=== PATIENT | male | born 1960 | race Caucasian/White ===

== ENCOUNTER 2023-02-13 08:48 | Outpatient (OUT) | payer OTHER, SELFPAY ==
[2023-02-13 09:29] LABS: Basophils Absolute Auto 0.1 10^3/uL (0.0-0.1); Basophils Percent Auto 1.1 % (0.2-2.0); Eosinophils Absolute Auto 0.2 10^3/uL (0.0-0.7); Eosinophils Percent Auto 3.6 % (0.9-7.0); Hematocrit 44.6 % (42.0-54.0); Hemoglobin 14.8 g/dL (14.0-18.0); Immature Granulocytes Abs Auto 0.05 10^3/uL (0.00-0.03); Immature Granulocytes Pct Auto 0.8 % (0.0-0.5); Lymphocytes Absolute Auto 1.5 10^3/uL (1.2-3.8); Lymphocytes Percent Auto 24.1 % (20.5-60.0); Mean Corpuscular HGB Conc 33.2 g/dL (29.9-35.2); Mean Corpuscular Hemoglobin 29.1 pg (25.9-34.0); Mean Corpuscular Volume 87.8 fL (80.0-94.0); Mean Platelet Volume 10.3 fL (9.5-13.5); Monocytes Absolute Auto 0.7 10^3/uL (0.3-0.8); Monocytes Percent Auto 11.7 % (1.7-12.0); Neutrophils Absolute Auto 3.6 10^3/uL (1.4-6.5); Neutrophils Percent Auto 58.7 % (43.0-75.0); Platelet Count 210 10^3/uL (150-450); Red Blood Count 5.08 10^6/uL (4.70-6.10); Red Cell Distribution Width 13.2 % (11.0-15.0); White Blood Count 6.2 10^3/uL (4.0-11.0)
[2023-02-13 09:40] LABS: Estimated Average Glucose 105 mg/dL; Glycohemoglobin A1C 5.3 % (4.5-6.2)
[2023-02-13 09:59] LABS: Alanine Aminotransferase 34 U/L (16-63); Albumin Globulin Ratio 1.1; Albumin Level 3.9 g/dL (3.4-5.0); Alkaline Phosphatase 85 U/L (46-116); Anion Gap 12.3; Aspartate Amino Transferase 17 U/L (15-37); BUN Creatinine Ratio 19.6; Bilirubin Total 0.7 mg/dL (0.2-1.0); Calcium 8.9 mg/dL (8.5-10.1); Carbon Dioxide 27.8 mmol/L (21.0-32.0); Chloride 105 mmol/L (98-107); Chol HDL Ratio 5.5; Cholesterol 186 mg/dL (<=200); Estimated GFR (African America >60 (>=60); Estimated GFR (Non-African Ame >60 (>=60); Free T3 2.76 pg/mL (2.18-3.98); Globulin 3.5 g/dL; Glucose 104 mg/dL (74-106); HDL Cholesterol 34 mg/dL (40-60); Potassium 4.1 mmol/L (3.5-5.1); Sodium 141 mmol/L (136-145); Thyroid Stimulating Hormone 0.987 uIU/mL (0.358-3.740); Total Protein 7.4 g/dL (6.4-8.2); Triglycerides 159 mg/dL (<=150); VLDL CHOLESTEROL 31.8 mg/dL
[2023-02-13 10:25] LABS: Prostate Specific Antigen Scrn 0.17 ng/mL (<=4.00)
== END 2023-02-13 08:49 | disposition home or self-care (01) ==
LOC: LAB 08:52
PROVIDERS: PCP Family Medicine; Visit Provider Family Medicine
DX: Z00.00 Encounter for general adult medical examination without abnormal findings (principal); Z12.5 Encounter for screening for malignant neoplasm of prostate
CPT/HCPCS: 36415; 80053; 80061; 83036; 84436; 84443; 84481; 85025; G0103

== ENCOUNTER 2024-03-06 10:01 | Outpatient (OUT) | payer MEDICARE, SELFPAY ==
--- OUTSIDE RECORDS SUMMARY | 2024-03-06 10:09 | XMS_ITS | CCD ---
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 Role Phone Yudelka Mota Primary Care Physician EDWARD, DR MARTINEZ Consulting Unavailable HOY, DR JHA Primary Care Unavailable ROJAS, DR MARTINEZ Admitting Unavailable ROJAS, DR MARTINEZ Attending Unavailable MORROW, CHARLY Consulting Unavailable ROJAS, DR MARTINEZ Attending Unavailable HOY, DR JHA Primary Care Unavailable ROJAS, DR MARTINEZ Consulting Unavailable ROJAS, DR MARTINEZ Admitting Unavailable ROJAS, DR MARTINEZ Attending Unavailable HOY, DR JHA Primary Care Unavailable ROJAS, DR MARTINEZ Consulting Unavailable ROJAS, DR MARTINEZ Admitting Unavailable HOY, DR JHA Admitting Unavailable HOY, DR JHA Attending Unavailable HOY, DR JHA Consulting Unavailable HOY, DR JHA Primary Care Unavailable ROJAS, DR MARTINEZ Attending Unavailable ROJAS, DR MARTINEZ Consulting Unavailable HOY, DR JHA Primary Care Unavailable ROJAS, DR MARTINEZ Admitting Unavailable HOY, DR JHA Primary Care Unavailable ROJAS, DR MARTINEZ Consulting Unavailable ROJAS, DR MARTINEZ Admitting Unavailable ROJAS, DR MARTINEZ Attending Unavailable AGUBOSIM, MARTHA Consulting Unavailable LONG, MICHAEL Consulting Unavailable DORKOSKIEKYLEIGH Consulting Unavailable EDIE BENNETT Consulting Unavailable KATHLEENY, DR JHA Primary Care Unavailable EDIE BENNETT Admitting Unavailable EDIE BENNETT Attending Unavailable ROC, DR EDWARDS Consulting Unavailable HAY, DR EDWARDS Admitting Unavailable HAY, DR EDWARDS Attending Unavailable HOY, DR JHA Primary Care Unavailable ROJAS, Kirill Beck Attending Unavailable ROJAS, Kirill Beck Attending Unavailable ROJAS, Kirill Beck Attending Unavailable ROJAS, Kirill Beck Attending Unavailable ROJAS, Kirill Beck Attending Unavailable ROJAS, Kirill Beck Attending Unavailable Allergies Allergy Classification Reported Allergen(s) Allergy Type Date of Onset Reaction(s) Facility (1 source) No Known Medication Allergies; Translations: [No Known Medication Allergies] Propensity to adverse reactions (disorder) [facility] Repository Medications Current Medications Medication Drug Class(es) Dates Sig (Normalized) Sig (Original) amLODIPine 10 mg oral tablet (4 sources) Dihydropyridine Calcium Channel Ovidio Start: 09-07-2019 take 1 tablet by mouth once daily Norvasc 10 mg Tab 10 mg = 1 tab(s), Oral, Daily, Refills(s) 0 Start Date: 09/07/19 Status: Ordered diclofenac sodium 75 mg delayed release oral tablet (3 sources) Nonsteroidal Anti-inflammatory Drug Start: 01-03-2020 take 1 tablet by mouth twice daily Diclofenac 75mg Tab-DR 75 mg, Oral, BID, Refills(s) 0 Start Date: 01/03/20 Status: Ordered Diclofenac 75mg Tab-DR (1 source) Start: 01-03-2020 take 1 tablet by mouth twice daily Diclofenac 75mg Tab-DR 75 mg, Oral, BID, Refills(s) 0 Start Date: 01/03/20 Status: Ordered omeprazole 20 mg delayed release oral capsule (4 sources) Proton Pump Inhibitor Start: 09-21-2019 take 1 capsule by mouth once daily omeprazole 20 mg Cap-DR 20 mg = 1 cap(s), Oral, Daily Start Date: 09/21/19 Status: Ordered tamsulosin hydrochloride 0.4 mg oral capsule (2 sources) alpha-Adrenergic Ovidio Start: 09-07-2019 take 1 capsule by mouth once daily Flomax 0.4 mg Cap 0.4 mg = 1 cap(s), Oral, Daily, Refills(s) 0 Start Date: 09/07/19 Status: Ordered 24 hr tolterodine tartrate 2 mg extended release oral capsule (1 source) Cholinergic Muscarinic Antagonist Start: 10-09-2021 take 1 capsule by mouth once daily tolterodine 2 mg Cap-ER 2 mg = 1 cap(s), Oral, Daily, # 30 cap(s), Refills(s) 0, Pharmacy: [id number], 186, cm, 10/01/21 10:00:00 EDT, Height/Length Dosing, 110, kg, 10/01/21 10:00:00 EDT, Weight Dosing Start Date: 10/09/21 Status: Ordered Completed/Discontinued Medications Medication Drug Class(es) Dates Sig (Normalized) Sig (Original) Triamcinolone (4 sources) Corticosteroid Start: 09-07-2019 triamcinolone Top 0.1% Crm 1 rocio, Topical, BID, Refill(s) 0, apply a thin film to affected area Start Date: 09/07/19 Status: Ordered Start: 09-07-2019 triamcinolone Top 0.1% Crm 1 rocio, Topical, BID, Refill(s) 0, apply a thin film to affected area Start Date: 09/07/19 Status: Ordered Problems Active Problems Problem Classification Problem Date Documented Da te Episodic/Chronic Abdominal hernia (8 sources) Left inguinal hernia 01-04-2020 Episodic Esophageal disorders (1 source) Gastro-esophageal reflux disease without esophagitis; Translations: [GERD WITHOUT ESOPHAGITIS] Onset: 09-28-2021 Chronic Essential hypertension (5 sources) Benign essential hypertension; Translations: [Essential (primary) hypertension] Onset: 09-28-2021 09-07-2019 Chronic Genitourinary symptoms and ill-defined conditions (1 source) Presence of urogenital implants; Translations: [PRESENCE OF UROGENITAL IMPLANTS] Onset: 10-15-2021 Chronic Genitourinary symptoms and ill-defined conditions (8 sources) Nocturia; Translations: [Nocturia] Onset: 10-01-2021 Episodic Headache; including migraine (3 sources) Headache; including migraine; Translations: [HEADACHE UNSPECIFIED] Onset: 10-13-2021 Hemorrhoids (4 sources) Hemorrhoids 09-07-2019 Episodic Hyperplasia of prostate (13 sources) Benign prostatic hypertrophy with outflow obstruction; Translations: [Benign prostatic hyperplasia with lower urinary tract symptoms] Onset: 08-24-2021 Chronic Inflammatory conditions of male genital organs (1 source) Chronic prostatitis; Translations: [CHRONIC PROSTATITIS] Onset: 09-28-2021 Chronic Other nervous system disorders (4 sources) Carpal tunnel syndrome 09-07-2019 Chronic Other screening for suspected conditions (not mental disorders or infectious disease) (1 source) Encounter for screening for malignant neoplasm of prostate; Translations: [ENC SCREEN MALIG NEOPLASM PROSTATE] Onset: 02-13-2022 Episodic Unclassified (4 sources) Patient encounter status 01-04-2020 Unclassified (1 source) CONTACT W/AND (SUSP) EXPOS COVID-19; Translations: [CONTACT W/AND (SUSP) EXPOS COVID-19] Onset: 09-13-2021 Varicose veins of lower extremity (4 sources) Varicose veins of lower extremity 09-07-2019 Episodic Past or Other Problems Problem Classification Problem Date Documented Da te Episodic/Chronic Other aftercare (1 source) Other assisted (current) drug therapy; Translations: [OTH CUSTODIAL CURRENT DRUG THERAPY] Onset: 10-15-2021 Episodic Screening and history of mental health and substance abuse codes (1 source) Personal history of nicotine dependence; Translations: [PERSONAL HISTORY OF NICOTINE DEPEND] Onset: 09-28-2021 Episodic Urinary tract infections (1 source) Urinary tract infection, site not specified; Translations: [UTI SITE NOT SPECIFIED] Onset: 10-15-2021 Episodic Results Test Name Value Interpretation Reference Range Facility [facility] 08-05-2022 Lab Reports [id number]: 127 Normal [facility] Patient Educationon 07-30-19 Patient Education Urology Benign Prostatic Hyperplasia Benign prostatic hyperplasia (BPH) is an enlarged prostate gland that is caused by the normal aging process and not by cancer. The prostate is a walnut-sized gland that is involved in the production of semen. It is located in front of the rectum and below the bladder. The bladder stores urine and the urethra is the tube that carries the urine out of the body. The prostate may get bigger as a man gets older. An enlarged prostate can press on the urethra. This can make it harder to pass urine. The build-up of urine in the bladder can cause infection. Back pressure and infection may progress to bladder damage and kidney (renal) failure. What are the causes? This condition is part of a normal aging process. However, not all men develop problems from this condition. If the prostate enlarges away from the urethra, urine flow will not be blocked. If it enlarges toward the urethra and compresses it, there will be problems passing urine. What increases the risk? This condition is more likely to develop in men over the age of 50 years. What are the signs or symptoms? Symptoms of this condition include: ? Getting up often during the night to urinate. ? Needing to urinate frequently during the day. ? Difficulty starting urine flow. ? Decrease in size and strength of your urine stream. ? Leaking (dribbling) after urinating. ? Inability to pass urine. This needs immediate treatment. ? Inability to completely empty your bladder. ? Pain when you pass urine. This is more common if there is also an infection. ? Urinary tract infection (UTI). How is this diagnosed? This condition is diagnosed based on your medical history, a physical exam, and your symptoms. Tests will also be done, such as: ? A post-void bladder scan. This measures any amount of urine that may remain in your bladder after you finish urinating. ? A digital rectal exam. In a rectal exam, your health care provider checks your prostate by putting a lubricated, gloved finger into your rectum to feel the back of your prostate gland. This exam detects the size of your gland and any abnormal lumps or growths. ? An exam of your urine (urinalysis). ? A prostate specific antigen (PSA) screening. This is a blood test used to screen for prostate cancer. ? An ultrasound. This test uses sound waves to electronically produce a picture of your prostate gland. Your health care provider may refer you to a specialist in kidney and prostate diseases (urologist). How is this treated? Once symptoms begin, your health care provider will monitor your condition (active surveillance or watchful waiting). Treatment for this condition will depend on the severity of your condition. Treatment may include: ? Observation and yearly exams. This may be the only treatment needed if your condition and symptoms are mild. ? Medicines to relieve your symptoms, including: ? Medicines to shrink the prostate. ? Medicines to relax the muscle of the prostate. ? Surgery in severe cases. Surgery may include: ? Prostatectomy. In this procedure, the prostate tissue is removed completely through an open incision or with a laparoscope or robotics. ? Transurethral resection of the prostate (TURP). In this procedure, a tool is inserted through the opening at the tip of the penis (urethra). It is used to cut away tissue of the inner core of the prostate. The pieces are removed through the same opening of the penis. This removes the blockage. ? Transurethral incision (TUIP). In this procedure, small cuts are made in the prostate. This lessens the prostate's pressure on the urethra. ? Transurethral microwave thermotherapy (TUMT). This procedure uses microwaves to create heat. The heat destroys and removes a small amount of prostate tissue. ? Transurethral needle ablation (TUNA). This procedure uses radio frequencies to destroy and remove a small amount of prostate tissue. ? Interstitial laser coagulation (ILC). This procedure uses a laser to destroy and remove a small amount of prostate tissue. ? Transurethral electrovaporization (TUVP). This procedure uses electrodes to destroy and remove a small amount of prostate tissue. ? Prostatic urethral lift. This procedure inserts an implant to push the lobes of the prostate away from the urethra. Follow these instructions at home: ? Take rzri-ksw-htjzgoz and prescription medicines only as told by your health care provider. ? Monitor your symptoms for any changes. Contact your health care provider with any changes. ? Avoid drinking large amounts of liquid before going to bed or out in public. ? Avoid or reduce how much caffeine or alcohol you drink. ? Give yourself time when you urinate. ? Keep all follow-up visits as told by your health care provider. This is important. Contact a health care provider if: ? You have unexplained back pain. ? Your symptoms do not get better with treatment. ? You d (more content not included)... Normal [facility] Urology Office/Clinic Noteon 07-29-2022 Urology Office/Clinic Note Chief Complaint 6m HPI Staff 6m to BPH & Nocturia. *No Urology Medications. S/P TURP 09/13/21. PSA done 02/09/23- 0.38 (ordered by Dr Mota) Still getting up 1-2x/night to void. Stream is slow in the morning occasionally. Denies dribbling/incontinence. Stronger stream, some days not as strong. Better than it was at time of last encounter. No urinary concerns at this time. History of Present Illness Tests reviewed: reviewed UA, PSA. I have reviewed the previous health record information and history for this patient from Dr. Rojas. I have reviewed and verified the staff HPI to be accurate for this encounter. There have been no associated fever, chills, flank pain, or blood in the urine. Denies any urinary infections since last encounter. Review of Systems PHQ Score Initial Depression Screen Score: 0 ROS - Provider Constitutional: denies weight loss, denies hot flashes. Eyes: denies eye problems. Gastrointestinal: denies nausea, denies vomiting. Cardiovascular: denies chest pain or angina. Integumentary: no dryness Musculoskeletal: denies musculoskeletal symptoms. ENMT: denies otolaryngeal symptoms. Respiratory: no shortness of breath. Heme/Lymph: denies easy bleeding tendency, denies easy bruising tendency. Psychiatric: no confusion, no anxiety. Genitourinary: See HPI. Physical Exam Vitals & Measurements HR: 68(Peripheral) RR: 16 BP: 140/87 HT: 73 in HT: 186 cm WT: 111 kg WT: 244.2 lb BMI: 32.08 General Appearance: alert, no distress, well nourished, well developed male. Genitourinary: normal scrotum, normal testes, normal urethra, normal epididymis, normal vas deferens/spermatic cord. Flank Pain: none. Bladder: nonpalpable. Assessment/Plan 1. BPH without urinary obstruction (N40.0: Benign prostatic hyperplasia without lower urinary tract symptoms) PSA: 01/27/21 - 0.08 02/09/23 - 0.38 (ordered by Dr Mota) S/P TURP 09/13/21. UA today negative for blood and infection. Not taking any prostate meds. Still gets up 1-x/night to void. Has rare small voids. Tries to void during his breaks at work. Weaker stream on some days, could be related to fluid intake. Recommended pt to drink 6-8 bottles of water per day. PSA is very low. Feels he empties completely. PVR today 12 cc, emptying well. Follow up PRN. Pt understands and agrees with plan. -Higher fluid intake, 6-8 bottles of water per day -Cont PSA monitoring with PSA Follow-up With When Contact Information EDWARD SCHAEFER, Kirill Beck, [facility] [address] , [place] [address]- Additional Instructions: PRN Patient Education Benign Prostatic Hyperplasia IShivani, personally scribed for Dr. Rojas on 07/29/2022 15:10:25. . Documentation recorded by the scribe, Shivani Latham, accurately reflects the services(s) I performed and decisions made by me. Authenticated by Dr. Rojas on 07/29/2022 15:12:01. Problem List/Past Medical History Ongoing Benign essential hypertension BPH without urinary obstruction Carpal tunnel syndrome Hemorrhoids Left inguinal hernia Nocturia Screening for malignant neoplasm of colon Varicose veins of lower extremity Historical Hernia, inguinal, left Procedure/Surgical History TURP - Transurethral resection of prostate (09/13/2021), Repair of left inguinal hernia (05/03/2020), Colonoscopy (01/19/2020), Cholecystectomy, Hemorrhoidectomy. Medications Diclofenac 75mg Tab-DR, 75 mg, Oral, BID Norvasc 10 mg Tab, 10 mg= 1 tab(s), Oral, Daily omeprazole 20 mg Cap-DR, 20 mg= 1 cap(s), Oral, Daily triamcinolone Top 0.1% Crm, 1 rocio, Topical, BID Allergies No Known Allergies No Known Medication Allergies Social History Alcohol Current, Beer, 1-2 times per month, 09/21/2019 Substance Abuse - Denies Substance Abuse, 09/21/2019 Tobacco Former smoker, quit more than 30 days ago Tobacco Use:. Never Smokeless Tobacco Use:. Cigarettes, 07/29/2022 Family History Hypertension: Mother and Father. Immunizations Vaccine Date Status Comments influenza virus vaccine, inactivated 02/05/2022 Recorded SARS-CoV-2 (COVID-19) Ad26 vaccine 02/07/2021 Recorded influenza virus vaccine, inactivated 01/19/2021 Recorded SARS-CoV-2 (COVID-19) mRNA BNT-162b2 vax 01/19/2021 Recorded SARS-CoV-2 (COVID-19) Ad26 vaccine 07/30/2020 Recorded SARS-CoV-2 (COVID-19) mRNA BNT-162b2 vax 07/20/2020 Recorded SARS-CoV-2 (COVID-19) Ad26 vaccine 06/29/2020 Recorded influenza virus vaccine, inactivated - Not Given Patient Refuses influenza, unspecified formulation 02/10/2020 Recorded influenza virus vaccine, inactivated 02/02/2020 Recorded influenza, unspecified formulation 02/11/2019 Recorded influenza virus vaccine, inactivated 02/01/2019 Recorded influenza virus vaccine, inactivated 01/09/2019 Recorded Lab Results Ambulatory Point of Care Results Bilirubin Urine Dipstick: 1+ Small (07/29/22 13:45:00) Blood (more content not included)... Normal [facility] Comment on above: Result Comment: Elec tronically Signed By: EDWARD SCHAEFER, Kirill R\.br\Date and Time Signed: 07/29/22 15:12 EDT\.br\Electronically Co-Signed By: Shivani Latham\.br\Date and Time Co-Signed: 07/29/22 15:11 EDT INSULINon 02-11-2022 Insulin 16.6 uIU/mL Normal 2.6-24.9 [facility] Comment on above: Performed By: #### I NSULIN #### [facility] [address] [place] [address] Dr. Linden Jansen CBC AUTO DIFFon 02-09-2022 BASO # 0.1 103/ul Normal 0.0-0.1 [facility] Comment on above: Performed By: #### B MP #### [facility] [address] [place] [address] Dr. Linden Jansen Basophils/100 WBC (Bld) 0.9 % Normal 0.2-2.0 [facility] Comment on above: Performed By: #### B MP #### [facility] [address] [place] [address] Dr. Linden Jansen EO # 0.2 103/ul Normal 0.0-0.7 [facility] Comment on above: Performed By: #### B MP #### [facility] [address] [place] [address] Dr. Linden Jansen Eosinophils/100 WBC (Bld) 3.2 % Normal 0.9-7.0 [facility] Comment on above: Performed By: #### B MP #### [facility] [address] [place] [address] Dr. Linden Jansen Erythrocyte distribution width (RBC) [Ratio] 13.9 % Normal 11.0-15.0 [facility] Comment on above: Performed By: #### B MP #### [facility] [address] [place] [address] Dr. Linden Jansen Hematocrit (Bld) [Volume fraction] 45.2 % Normal 42.0-54.0 [facility] Comment on above: Performed By: #### B MP #### [facility] [address] [place] [address] Dr. Linden Jansen Hemoglobin (Bld) [Mass/Vol] 14.8 g/dL Normal 14.0-18.0 [facility] Comment on above: Performed By: #### B MP #### [facility] [address] [place] [address] Dr. Linden Jansen IG # 0.06 10e3/ul Critically high 0.00-0.03 [facility] Comment on above: Performed By: #### B MP #### [facility] [address] [address] [address] Linden Jansen IG % 0.9 % Critically high 0.0-0.5 [facility] Comment on above: Performed By: #### B MP #### [facility] [address] [place] [address] Dr. Linden Jansen LYMPH # 1.7 103/ul Normal 1.2-3.8 [facility] Comment on above: Performed By: #### B MP #### [facility] [address] [place] [address] Dr. Linden Jansen Lymphocytes/100 WBC (Bld) 25.6 % Normal 20.5-60.0 [facility] Comment on above: Performed By: #### B MP #### [facility] [address] [place] [address] Dr. Linden Jansen MANUAL DIFF REQ NO Normal [facility] Comment on above: Performed By: #### B MP #### [facility] [address] [place] [address] Dr. Linden Jansen MCH (RBC) [Entitic mass] 28.5 pg Normal 25.9-34.0 [facility] Comment on above: Performed By: #### B MP #### [facility] [address] [place] [address] Dr. Linden Jansen MCHC (RBC) [Mass/Vol] 32.7 g/dL Normal 29.9-35.2 [facility] Comment on above: Performed By: #### B MP #### [facility] [address] [place] [address] Dr. Linden Jansen MCV (RBC) [Entitic vol] 87.1 fL Normal 80.0-94.0 [facility] Comment on above: Performed By: #### B MP #### [facility] [address] [place] [address] Dr. Linden Jansen MONO # 0.7 103/ul Normal 0.3-0.8 [facility] Comment on above: Performed By: #### B MP #### [facility] [address] [place] [address] Dr. Linden Jansen Monocytes/100 WBC (Bld) 10.1 % Normal 1.7-12.0 [facility] Comment on above: Performed By: #### B MP #### [facility] [address] [place] [address] Dr. Linden Jansen NEUT # 4.0 103/ul Normal 1.4-6.5 [facility] Comment on above: Performed By: #### B MP #### [facility] [address] [place] [address] Dr. Linden Jansen Neutrophils/100 WBC (Bld) 59.3 % Normal 43.0-75.0 [facility] Comment on above: Performed By: #### B MP #### [facility] [address] [place] [address] Dr. Linden Jansen Platelet mean volume (Bld) [Entitic vol] 9.8 fL Normal 9.5-13.5 [facility] Comment on above: Performed By: #### B MP #### [facility] [address] [place] [address] Dr. Linden Jansen PLT 235 103/ul Normal 150-450 [facility] Comment on above: Performed By: #### B MP #### [facility] [address] [place] [address] Dr. Linden Jansen RBC 5.19 106/ul Normal 4.70-6.10 [facility] Comment on above: Performed By: #### B MP #### [facility] [address] [place] [address] Dr. Linden Jansen WBC 6.7 103/ul Normal 4.0-11.0 [facility] Comment on above: Performed By: #### B MP #### [facility] [address] [address] [address] Linden Jansen FREE THYROXINE INDEX T7on FTI 2.67 Normal 1.30-4.50 [facility] Comment on above: Performed By: #### B MP #### [facility] [address] [address] [address] Linden Jansen T3U 33.0 % Normal 33.0-40.0 [facility] Comment on above: Performed By: #### B MP #### [facility] [address] [address] [address] Linden Jansen T4 [Mass/Vol] 8.10 ug/dL Normal 4.50-12.10 [facility] Comment on above: Performed By: #### B MP #### [facility] [address] [place] [address] Dr. Linden Jansen GLYCOHEMOGLOBIN A1Con 2021 ADA RECOMMENDATION SEE BELOW Normal [facility] Comment on above: Result Comment: ADA RECOMMENDED LIMIT 4.0 - 6.0 ADA THERAPEUTIC TARGET < 7.0 ACTION SUGGESTED > 7.0 Performed By: #### B MP #### [facility] [address] [address] [address] Linden Jansen Glucose [Mass/Vol] 105 mg/dL Normal [facility] Comment on above: Performed By: #### B MP #### [facility] [address] [place] [address] Dr. Linden Jansen HbA1c (Bld) [Mass fraction] 5.3 % Normal 4.5-6.2 [facility] Comment on above: Performed By: #### B MP #### [facility] [address] [place] [address] Dr. Linden Jansen LIPID PROFILEon 02-09-2022 CHOL-HDL RATIO NORM SEE BELOW Normal [facility] Comment on above: Result Comment: 3.3 - 4.4 LOW RISK 4.4 - 7.1 AVERAGE RISK 7.1 - 11.0 MODERATE RISK >11.0 HIGH RISK Performed By: #### B MP #### [facility] [address] [address] [address] Linden Jansen Cholesterol [Mass/Vol] 187 mg/dL Normal <=200 [facility] Comment on above: Performed By: #### B MP #### [facility] [address] [address] [address] Linden Jansen Cholesterol in HDL [Mass/Vol] 34 mg/dL Critically low 40-60 [facility] Comment on above: Performed By: #### B MP #### [facility] [address] [address] [address] Linden Jansen Cholesterol in LDL [Mass/Vol] 123.0 mg/dL Normal [facility] Comment on above: Performed By: #### B MP #### [facility] [address] [address] [address] Linden Jansen Cholesterol.total/Ch olesterol in HDL [Mass ratio] 5.5 {ratio} Normal [facility] Comment on above: Performed By: #### B MP #### [facility] [address] [address] [address] Linden Jansen HDL NORMAL > or = 60 mg/dl - LO W CARDIOVASCULAR RISK <40 mg/dl - HIGH CARDIOVASCULAR RISK Normal [facility] Comment on above: Performed By: #### B MP #### [facility] [address] [address] [address] Linden Jansen LDL CALC NORMAL SEE BELOW Normal [facility] Comment on above: Result Comment: <100 mg/dl OPTIMAL 100 - 129 mg/dl NEAR OR ABOVE OPTIMAL 130 - 159 mg/dl BORDERLINE HIGH 160 - 189 mg/dl HIGH >190 mg/dl VERY HIGH Performed By: #### B MP #### [facility] [address] [address] [address] Linden Jansen Triglyceride [Mass/Vol] 150 mg/dL Normal <=150 [facility] Comment on above: Performed By: #### B MP #### [facility] [address] [address] [address] Linden Jansen VLDL CALC 30.0 mg/dL Normal [facility] Comment on above: Performed By: #### B MP #### [facility] [address] [address] [address] Linden Jansen PROF 14(COMP METB)on 022 Albumin [Mass/Vol] 4.3 g/dL Normal 3.4-5.0 [facility] Comment on above: Performed By: #### B MP #### [facility] [address] [address] [address] Linden Jansen Albumin/Globulin [Mass ratio] 1.2 {ratio} Normal [facility] Comment on above: Performed By: #### B MP #### [facility] [address] [place] [address] Dr. Linden Jansen ALP [Catalytic activity/Vol] 78 U/L Normal 46-116 [facility] Comment on above: Performed By: #### B MP #### [facility] [address] [place] [address] Dr. Linden Jansen ALT [Catalytic activity/Vol] 36 U/L Normal 16-63 [facility] Comment on above: Performed By: #### B MP #### [facility] [address] [place] [address] Dr. Linden Jansen Anion gap [Moles/Vol] 9.7 mmol/L Normal [facility] Comment on above: Performed By: #### B MP #### [facility] [address] [place] [address] Dr. Linden Jansen AST [Catalytic activity/Vol] 17 U/L Normal 15-37 [facility] Comment on above: Performed By: #### B MP #### [facility] [address] [address] [address] Linden Jansen Bilirubin [Mass/Vol] 0.7 mg/dL Normal 0.2-1.0 [facility] Comment on above: Performed By: #### B MP #### [facility] [address] [place] [address] Dr. Linden Jansen Calcium [Mass/Vol] 9.2 mg/dL Normal 8.5-10.1 [facility] Comment on above: Performed By: #### B MP #### [facility] [address] [address] [address] Linden Jansen Chloride [Moles/Vol] 104 mmol/L Normal 98-107 [facility] Comment on above: Performed By: #### B MP #### [facility] [address] [address] [address] Linden Jansen CO2 [Moles/Vol] 29.2 mmol/L Normal 21.0-32.0 [facility] Comment on above: Performed By: #### B MP #### [facility] [address] [place] [address] Dr. Linden Jansen Creatinine [Mass/Vol] 1.02 mg/dL Normal 0.70-1.30 [facility] Comment on above: Performed By: #### B MP #### [facility] [address] [place] [address] Dr. Linden Jansen EGFR-AF CHADIAN >60 Normal >=60 [facility] Comment on above: Performed By: #### B MP #### [facility] [address] [place] [address] Dr. Linden Jansen EGFR-NON AF CHADIAN >60 Normal >=60 [facility] Comment on above: Performed By: #### B MP #### [facility] [address] [place] [address] Dr. Linden Jansen Globulin (S) [Mass/Vol] 3.5 g/dL Normal [facility] Comment on above: Performed By: #### B MP #### [facility] [address] [place] [address] Dr. Linden Jansen Glucose [Mass/Vol] 100 mg/dL Normal 74-106 [facility] Comment on above: Performed By: #### B MP #### [facility] [address] [place] [address] Dr. Linden Jansen Potassium [Moles/Vol] 3.9 mmol/L Normal 3.5-5.1 [facility] Comment on above: Performed By: #### B MP #### [facility] [address] [place] [address] Dr. Linden Jansen Protein [Mass/Vol] 7.8 g/dL Normal 6.4-8.2 [facility] Comment on above: Performed By: #### B MP #### [facility] [address] [address] [address] Linden Jansen Sodium [Moles/Vol] 139 mmol/L Normal 136-145 [facility] Comment on above: Performed By: #### B MP #### [facility] [address] [address] [address] Linden Jansen Urea nitrogen [Mass/Vol] 23.0 mg/dL Critically high 7.0-18.0 [facility] Comment on above: Performed By: #### B MP #### [facility] [address] [place] [address] Dr. Linden Jansen Urea nitrogen/Creatinine [Mass ratio] 22.5 mg/mg Normal [facility] Comment on above: Performed By: #### B MP #### [facility] [address] [place] [address] Dr. Linden Jansen TSHon 02-09-2022 TSH 0.983 uIU/mL Normal 0.358-3.740 [facility] Comment on above: Performed By: #### B MP #### [facility] [address] [place] [address] Dr. Linden Jansen URIC ACID SERUMon 02-09-2022 Urate [Mass/Vol] 6.1 mg/dL Normal 3.5-7.2 [facility] Comment on above: Performed By: #### B MP #### [facility] [address] [place] [address] Dr. Linden Jansen Patient Educationon 01-08-20 Patient Education Urology Benign Prostatic Hyperplasia Benign prostatic hyperplasia (BPH) is an enlarged prostate gland that is caused by the normal aging process and not by cancer. The prostate is a walnut-sized gland that is involved in the production of semen. It is located in front of the rectum and below the bladder. The bladder stores urine and the urethra is the tube that carries the urine out of the body. The prostate may get bigger as a man gets older. An enlarged prostate can press on the urethra. This can make it harder to pass urine. The build-up of urine in the bladder can cause infection. Back pressure and infection may progress to bladder damage and kidney (renal) failure. What are the causes? This condition is part of a normal aging process. However, not all men develop problems from this condition. If the prostate enlarges away from the urethra, urine flow will not be blocked. If it enlarges toward the urethra and compresses it, there will be problems passing urine. What increases the risk? This condition is more likely to develop in men over the age of 50 years. What are the signs or symptoms? Symptoms of this condition include: ? Getting up often during the night to urinate. ? Needing to urinate frequently during the day. ? Difficulty starting urine flow. ? Decrease in size and strength of your urine stream. ? Leaking (dribbling) after urinating. ? Inability to pass urine. This needs immediate treatment. ? Inability to completely empty your bladder. ? Pain when you pass urine. This is more common if there is also an infection. ? Urinary tract infection (UTI). How is this diagnosed? This condition is diagnosed based on your medical history, a physical exam, and your symptoms. Tests will also be done, such as: ? A post-void bladder scan. This measures any amount of urine that may remain in your bladder after you finish urinating. ? A digital rectal exam. In a rectal exam, your health care provider checks your prostate by putting a lubricated, gloved finger into your rectum to feel the back of your prostate gland. This exam detects the size of your gland and any abnormal lumps or growths. ? An exam of your urine (urinalysis). ? A prostate specific antigen (PSA) screening. This is a blood test used to screen for prostate cancer. ? An ultrasound. This test uses sound waves to electronically produce a picture of your prostate gland. Your health care provider may refer you to a specialist in kidney and prostate diseases (urologist). How is this treated? Once symptoms begin, your health care provider will monitor your condition (active surveillance or watchful waiting). Treatment for this condition will depend on the severity of your condition. Treatment may include: ? Observation and yearly exams. This may be the only treatment needed if your condition and symptoms are mild. ? Medicines to relieve your symptoms, including: ? Medicines to shrink the prostate. ? Medicines to relax the muscle of the prostate. ? Surgery in severe cases. Surgery may include: ? Prostatectomy. In this procedure, the prostate tissue is removed completely through an open incision or with a laparoscope or robotics. ? Transurethral resection of the prostate (TURP). In this procedure, a tool is inserted through the opening at the tip of the penis (urethra). It is used to cut away tissue of the inner core of the prostate. The pieces are removed through the same opening of the penis. This removes the blockage. ? Transurethral incision (TUIP). In this procedure, small cuts are made in the prostate. This lessens the prostate's pressure on the urethra. ? Transurethral microwave thermotherapy (TUMT). This procedure uses microwaves to create heat. The heat destroys and removes a small amount of prostate tissue. ? Transurethral needle ablation (TUNA). This procedure uses radio frequencies to destroy and remove a small amount of prostate tissue. ? Interstitial laser coagulation (ILC). This procedure uses a laser to destroy and remove a small amount of prostate tissue. ? Transurethral electrovaporization (TUVP). This procedure uses electrodes to destroy and remove a small amount of prostate tissue. ? Prostatic urethral lift. This procedure inserts an implant to push the lobes of the prostate away from the urethra. Follow these instructions at home: ? Take [id number] and prescription medicines only as told by your health care provider. ? Monitor your symptoms for any changes. Contact your health care provider with any changes. ? Avoid drinking large amounts of liquid before going to bed or out in public. ? Avoid or reduce how much caffeine or alcohol you drink. ? Give yourself time when you urinate. ? Keep all follow-up visits as told by your health care provider. This is important. Contact a health care provider if: ? You have unexplained back pain. ? Your symptoms do not get better with treatment. ? You d (more content not included)... Normal [facility] Urology Office/Clinic Noteon 01-07-2022 Urology Office/Clinic Note Chief Complaint 3 month follow up HPI Staff Delia is here today for a 3 month follow up. Previous DX: BPH with urinary obstruction, nocturia. S/P TURP done on 09/13/21. Dysuria: _Denies Incomplete bladder emptying: _Denies Hematuria: _Denies Frequency: _every 2-3 hours Urgency: _mild Nocturia: _1-2x Stream: _varies from steady to weak Leaking: _Denies Post void dripping: _rare Wearing pads/ Depends: _Denies Urge incontinence: _Denies Stress incontinence: _Denies Incontinence without Sensory Awareness: _Denies Abdominal pain: _Denies Flank pain: _Denies Sexual complaints: _ History of Present Illness I have reviewed and verified the staff HPI to be accurate for this encounter. Review of Systems PHQ Score Initial Depression Screen Score: 0 ROS - Provider Constitutional: denies weight loss, denies hot flashes. Eyes: denies eye problems. Gastrointestinal: denies nausea, denies vomiting. Cardiovascular: denies chest pain or angina. Integumentary: no dryness Musculoskeletal: denies musculoskeletal symptoms. ENMT: denies otolaryngeal symptoms. Respiratory: no shortness of breath. Heme/Lymph: denies easy bleeding tendency, denies easy bruising tendency. Psychiatric: no confusion, no anxiety. Genitourinary: denies dysuria, denies hematuria, denies discharge, denies urinary frequency, denies urinary hesitancy, denies nocturia, denies incontinence, denies genital sores, denies decreased libido, and denies erectile dysfunction. Physical Exam Vitals & Measurements HR: 81(Peripheral) RR: 16 BP: 156/97 HT: 73 in HT: 186 cm WT: 110 kg WT: 242 BMI: 31.8 General Appearance: alert, no distress, well nourished, well developed male. Genitourinary: normal scrotum, normal testes, normal urethra, normal epididymis, normal vas deferens/spermatic cord. Flank Pain: none. Bladder: nonpalpable. Assessment/Plan 1. BPH with urinary obstruction (N40.1: Benign prostatic hyperplasia with lower urinary tract symptoms) PSA was done 01/27/21 0.08. S/p TURP done 09/13/21. PVR today was 77ml. Overall pt states that he voids every 2-3 hours throughout the day. Pt states that his stream is not always strong. Educated pt that its because he is voiding on a regular basis and does not allow his bladder to over fill. Pt is not on any BPH medications. Pt states that he feels like he is empty when he is done voiding. Educated pt that he is still healing. Will continue to monitor. Pt understands and acknowledges. 2. Nocturia (R35.1: Nocturia) Mild, 1-2 times per night Pt does drink fluid before he goes to bed. Follow-up With When Contact Information EDWARD SCHAEFER, LATRICE Vasquez In 6 months 07/07/2022 EDT [facility] [address], [place] [address] [phone] Additional Instructions: PVR Patient Education Benign Prostatic Hyperplasia I, Zuly Richmond, personally scribed for Dr. Rojas on 01/07/2022 16:19:58. . Documentation recorded by the scribe, Zuly Richmond, accurately reflects the services(s) I performed and decisions made by me. Problem List/Past Medical History Ongoing Benign essential hypertension BPH with urinary obstruction Carpal tunnel syndrome Hemorrhoids Left inguinal hernia Nocturia Screening for malignant neoplasm of colon Varicose veins of lower extremity Historical Hernia, inguinal, left Procedure/Surgical History Repair of left inguinal hernia (05/03/2020), Colonoscopy (01/19/2020), Cholecystectomy, Hemorrhoidectomy. Medications Diclofenac 75mg Tab-DR, 75 mg, Oral, BID Flomax 0.4 mg Cap, 0.4 mg= 1 cap(s), Oral, Daily, Not taking Norvasc 10 mg Tab, 10 mg= 1 tab(s), Oral, Daily omeprazole 20 mg Cap-DR, 20 mg= 1 cap(s), Oral, Daily tolterodine 2 mg Cap-ER, 2 mg= 1 cap(s), Oral, Daily, Not taking triamcinolone Top 0.1% Crm, 1 rocio, Topical, BID Allergies No Known Allergies No Known Medication Allergies Social History Alcohol Current, Beer, 1-2 times per month, 09/21/2019 Substance Abuse - Denies Substance Abuse, 09/21/2019 Tobacco Former smoker, quit more than 30 days ago Tobacco Use:. Never Smokeless Tobacco Use:., 01/07/2022 Former smoker, quit more than 30 days ago Tobacco Use:. Never Smokeless Tobacco Use:. Cigarettes, 05/10/2020 Family History Hypertension: Mother and Father. Immunizations Vaccine Date Status Comments SARS-CoV-2 (COVID-19) Ad26 vaccine 02/07/2021 Recorded SARS-CoV-2 (COVID-19) Ad26 vaccine 07/30/2020 Recorded SARS-CoV-2 (COVID-19) Ad26 vaccine 06/29/2020 Recorded influenza virus vaccine, inactivated - Not Given Patient Refuses Lab Results Ambulatory Point of Care Results Bilirubin Urine Dipstick: Negative (01/07/22 15:20:00) Blood Urine Dipstick: Negative (01/07/22 15:20:00) Glucose Urine Dipstick: Negative (01/07/22 15:20:00) Ketones Urine Dipstick: Trace - 5 mg/dl (01/07/22 15:20:00) Leukocytes Urine Dipstick: Negative (01/07/22 15:20:0 (more content not included)... Normal [facility] Comment on above: Result Comment: Elec tronically Signed By: Kirill ROJAS MD\.br\Date and Time Signed: 01/07/22 16:23 EDT\.br\Electronically Co-Signed By: Zuly Richmond MA\.br\Date and Time Co-Signed: 01/07/22 16:20 EDT Ambulatory Visit Summaryon 0 10-18-2021 Ambulatory Visit Summary DELIA ISLAS :1960 Visit Date:10/18/2021 Ambulatory Visit Instructions Your Care Team Attending Physician - Kirill ROJAS MD Primary Care Physician - Yudelka Mota MD This Is Your Medications List amlodipine (Norvasc 10 mg Tab) diclofenac (Diclofenac 75mg Tab-DR) omeprazole (omeprazole 20 mg Cap-DR) tamsulosin (Flomax 0.4 mg Cap) tolterodine (tolterodine 2 mg Cap-ER) triamcinolone topical (triamcinolone Top 0.1% Crm) Procedures Performed Repair of left inguinal hernia (05/03/2020), Colonoscopy (01/19/2020), Cholecystectomy, Hemorrhoidectomy. What to do next Scheduled Follow-Up Appointments Friday 2:30 PM EDT With: Kirill ROAJS MD Where: [facility] Normal [facility] ED Note-Physicianon 10-19-19 22 ED Note-Physician [id number]: 127 Normal [facility] CULTURE URINEon 10-13-2021 CULTURE URINE Culture Observations : NO GROWTH. Normal [facility] Comment on above: Performed By: #### B MP #### [facility] [address] [place] [address] Dr. Linden Jansen ER URINE PROFILEon 2 Bilirubin Ql (U) SMALL Abnormal NEGATIVE [facility] Comment on above: Performed By: #### Francine DAVID UMICRO #### [facility] [address] [place] [address] Dr. Linden Jansen Clarity (U) CLEAR Normal CLEAR [facility] Comment on above: Performed By: #### Francine DAVID UMICRO #### [facility] [address] [place] [address] Dr. Linden Jansen Color (U) BROWN Abnormal YELLOW [facility] Comment on above: Performed By: #### Francine DAVID UMICRO #### [facility] [address] [place] [address] Dr. Linden SUAREZ A micrscopic examina tion will be performed if indicated. Normal [facility] Comment on above: Performed By: #### Francine DAVID UMICRO #### [facility] [address] [place] [address] Dr. Linden Jansen Glucose Ql (U) Negative Normal NEGATIVE [facility] Comment on above: Performed By: #### Francine DAVID UMICRO #### [facility] [address] [place] [address] Dr. Linden Jansen Hemoglobin Ql (U) LARGE Abnormal NEGATIVE [facility] Comment on above: Performed By: #### Francine DAVID UMICRO #### [facility] [address] [place] [address] Dr. Linden Jansen Ketones Ql (U) Negative Normal NEGATIVE [facility] Comment on above: Performed By: #### LEILA BENSONRO #### [facility] [address] [place] [address] Dr. Linden Jansen LEUKOCYTES LARGE Abnormal NEGATIVE [facility] Comment on above: Performed By: #### LEILA BENSONRO #### [facility] [address] [place] [address] Dr. Linden Jansen Nitrite Ql (U) Negative Normal NEGATIVE [facility] Comment on above: Performed By: #### LEILA BENSONRO #### [facility] [address] [place] [address] Dr. Linden Jansen pH (U) 6.5 [pH] Normal 5-9 [facility] Comment on above: Performed By: #### LEILA BENSONRO #### [facility] [address] [place] [address] Dr. Linden Jansen Protein (U) [Mass/Vol] 100 mg/dL Abnormal NEGATIVE/ TRACE [facility] Comment on above: Performed By: #### LEILA BENSONRO #### [facility] [address] [place] [address] Dr. Linden Jansen SPEC GRAVITY 1.015 Normal 1.005-<=1.025 [facility] Comment on above: Performed By: #### LEILA BENSONRO #### [facility] [address] [place] [address] Dr. Linden Jansen UR MICRO IND INDICATED Normal [facility] Comment on above: Performed By: #### LEILA BENSONRO #### [facility] [address] [place] [address] Dr. Linden Jansen Urobilinogen Qn (U) 1.0 {Prerna'U}/dL Normal 0.2 - 1. 0 [facility] Comment on above: Performed By: #### LEILA BENSONRO #### [facility] [address] [place] [address] Dr. Linden Jansen URINE MICROSCOPIC ONLYon BACTERIA TRACE Abnormal NONE SEEN [facility] Comment on above: Performed By: #### Francine DAVID UMICRO #### [facility] [address] [place] [address] Dr. Linden Jansen Bacteria identified Cx Nom (U) INDICATED Normal [facility] Comment on above: Performed By: #### Francine DAVID UMICRO #### [facility] [address] [place] [address] Dr. Linden Jansen CAST NONE SEEN Normal NONE SEEN [facility] Comment on above: Performed By: #### NORMAN BENOSNICRO #### [facility] [address] [place] [address] Dr. Linden Jansen Crystals LM Nom (Urine sed) NONE SEEN Normal NONE SEEN [facility] Comment on above: Performed By: #### LEILA BENSONRO #### [facility] [address] [place] [address] Dr. Linden Jansen Epithelial cells LM Ql (Urine sed) RARE Normal NONE SEEN /RARE [facility] Comment on above: Performed By: #### NORMAN BENSONICRO #### [facility] [address] [place] [address] Dr. Linden Jansen MUCOUS NONE SEEN Normal NONE SEEN [facility] Comment on above: Performed By: #### NORMAN BENSONICRO #### [facility] [address] [place] [address] Dr. Linden Jansen RBC (U) [#/Vol] /uL Abnormal 0-2 [facility] Comment on above: Performed By: #### NORMAN BENSONICRO #### [facility] [address] [place] [address] Dr. Linden Jansen WBC 5-10 Abnormal NONE SEEN [facility] Comment on above: Performed By: #### Francine DAVID UMICRO #### [facility] [address] [place] [address] Dr. Linden Jansen CBC AUTO DIFFon 10-12-2021 BASO # 0.1 103/ul Normal 0.0-0.1 [facility] Comment on above: Performed By: #### C BC #### [facility] [address] [place] [address] Dr. Linden Jansen Basophils/100 WBC (Bld) 0.7 % Normal 0.2-2.0 [facility] Comment on above: Performed By: #### C BC #### [facility] [address] [place] [address] Dr. Linden Jansen EO # 0.1 103/ul Normal 0.0-0.7 [facility] Comment on above: Performed By: #### C BC #### [facility] [address] [place] [address] Dr. Linden Jansen Eosinophils/100 WBC (Bld) 1.0 % Normal 0.9-7.0 [facility] Comment on above: Performed By: #### C BC #### [facility] Laboratory [address] [place] [address] Dr. Linden Jansen Erythrocyte distribution width (RBC) [Ratio] 13.9 % Normal 11.0-15.0 [facility] Comment on above: Performed By: #### C BC #### [facility] [address] [place] [address] Dr. Linden Jansen Hematocrit (Bld) [Volume fraction] 41.9 % Critically low 42.0-54.0 [facility] Comment on above: Performed By: #### C BC #### [facility] [address] [place] [address] Dr. Linden Jansen Hemoglobin (Bld) [Mass/Vol] 14.0 g/dL Normal 14.0-18.0 [facility] Comment on above: Performed By: #### C BC #### [facility] [address] [place] [address] Dr. Linden Jansen IG # 0.07 10e3/ul Critically high 0.00-0.03 The [facility] Comment on above: Performed By: #### C BC #### [facility] [address] [place] [address] Dr. Linden Jansen IG % 0.8 % Critically high 0.0-0.5 The [facility] Comment on above: Performed By: #### C BC #### [facility] [address] [place] [address] Dr. Linden Jansen LYMPH # 1.0 103/ul Critically low 1.2-3.8 The [place] Comment on above: Performed By: #### C BC #### [facility] [address] [place] [address] Dr. Linden Jansen Lymphocytes/100 WBC (Bld) 10.7 % Critically low 20.5-60.0 [facility] Comment on above: Performed By: #### C BC #### [facility] [address] [place] [address] Dr. Linden Jansen MANUAL DIFF REQ NO Normal [facility] Comment on above: Performed By: #### C BC #### [facility] [address] [place] [address] Dr. Linden Jansen MCH (RBC) [Entitic mass] 28.0 pg Normal 25.9-34.0 [facility] Comment on above: Performed By: #### C BC #### [facility] [address] [place] [address] Dr. Linden Jansen MCHC (RBC) [Mass/Vol] 33.4 g/dL Normal 29.9-35.2 [facility] Comment on above: Performed By: #### C BC #### [facility] [address] [place] [address] Dr. Linden Jansen MCV (RBC) [Entitic vol] 83.8 fL Normal 80.0-94.0 [facility] Comment on above: Performed By: #### C BC #### [facility] [address] [place] [address] Dr. Linden Jansen MONO # 0.6 103/ul Normal 0.3-0.8 [facility] Comment on above: Performed By: #### C BC #### [facility] [address] [place] [address] Dr. Linden Jansen Monocytes/100 WBC (Bld) 7.0 % Normal 1.7-12.0 [facility] Comment on above: Performed By: #### C BC #### [facility] [address] [place] [address] Dr. Linden Jansen NEUT # 7.1 103/ul Critically high 1.4-6.5 [facility] Comment on above: Performed By: #### C BC #### [facility] [address] [place] [address] Dr. Linden Jansen Neutrophils/100 WBC (Bld) 79.8 % Critically high 43.0-75.0 [facility] Comment on above: Performed By: #### C BC #### [facility] [address] [place] [address] Dr. Linden Jansen Platelet mean volume (Bld) [Entitic vol] 10.0 fL Normal 9.5-13.5 [facility] Comment on above: Performed By: #### C BC #### [facility] [address] [place] [address] Dr. Linden Jansen PLT 207 103/ul Normal 150-450 [facility] Comment on above: Performed By: #### C BC #### [facility] [address] [place] [address] Dr. Linden Jansen RBC 5.00 106/ul Normal 4.70-6.10 [facility] Comment on above: Performed By: #### C BC #### [facility] [address] [place] [address] Dr. Linden Jansen WBC 8.9 103/ul Normal 4.0-11.0 [facility] Comment on above: Performed By: #### C BC #### [facility] [address] [place] [address] Dr. Linden Jansen CULTURE URINEon 10-12-2021 CULTURE URINE Culture Observations : NO GROWTH. Normal [facility] Comment on above: Performed By: #### B MP #### [facility] [address] [place] [address] Dr. Linden Jansen ER URINE PROFILEon 2 Bilirubin Ql (U) Negative Normal NEGATIVE The [facility] Comment on above: Performed By: #### B MP #### [facility] [address] [place] [address] Dr. Linden Jansen Clarity (U) CLOUDY Abnormal CLEAR [facility] Comment on above: Performed By: #### B MP #### [facility] [address] [place] [address] Dr. Linden Jansen Color (U) RED Abnormal YELLOW [facility] Comment on above: Performed By: #### B MP #### [facility] [address] [place] [address] Dr. Linden Jansen ERUAHD A micrscopic examina tion will be performed if indicated. Normal [facility] Comment on above: Performed By: #### B MP #### [facility] [address] [place] [address] Dr. Linden Jansen Glucose Ql (U) Negative Normal NEGATIVE The [place] Comment on above: Performed By: #### B MP #### [facility] [address] [place] [address] Dr. Linden Jansen Hemoglobin Ql (U) LARGE Abnormal NEGATIVE [facility] Comment on above: Performed By: #### B MP #### [facility] [address] [place] [address] Dr. Linden Jansen Ketones Ql (U) Negative Normal NEGATIVE [facility] Comment on above: Performed By: #### B MP #### [facility] [address] [place] [address] Dr. Linden Jansen LEUKOCYTES TRACE Abnormal NEGATIVE [facility] Comment on above: Performed By: #### B MP #### [facility] [address] [place] [address] Dr. Linden Jansen Nitrite Ql (U) Negative Normal NEGATIVE [facility] Comment on above: Performed By: #### B MP #### [facility] [address] [place] [address] Dr. Linden Jansen pH (U) 6.0 [pH] Normal 5-9 [facility] Comment on above: Performed By: #### B MP #### [facility] [address] [place] [address] Dr. Linden Jansen Protein (U) [Mass/Vol] 100 mg/dL Abnormal NEGATIVE/ TRACE [facility] Comment on above: Performed By: #### B MP #### [facility] [address] [place] [address] Dr. Linden Jansen SPEC GRAVITY 1.020 Normal 1.005-<=1.025 [facility] Comment on above: Performed By: #### B MP #### [facility] [address] [place] [address] Dr. Linden Jansen UR MICRO IND INDICATED Normal [facility] Comment on above: Performed By: #### B MP #### [facility] [address] [place] [address] Dr. Linden Jansen Urobilinogen Qn (U) 0.2 {Prerna'U}/dL Normal 0.2 - 1. 0 [facility] Comment on above: Performed By: #### B MP #### [facility] [address] [place] [address] Dr. Linden Jansen PROF CHEM 8 (BAS METB)on Anion gap [Moles/Vol] 14.6 mmol/L Normal [facility] Comment on above: Performed By: #### B MP #### [facility] [address] [place] [address] Dr. Linden Jansen Calcium [Mass/Vol] 8.8 mg/dL Normal 8.5-10.1 [facility] Comment on above: Performed By: #### B MP #### [facility] [address] [place] [address] Dr. Linden Jansen Chloride [Moles/Vol] 105 mmol/L Normal 98-107 [facility] Comment on above: Performed By: #### B MP #### [facility] [address] [place] [address] Dr. Linden Jansen CO2 [Moles/Vol] 23.4 mmol/L Normal 21.0-32.0 [facility] Comment on above: Performed By: #### B MP #### [facility] [address] [place] [address] Dr. Linden Jansen Creatinine [Mass/Vol] 1.02 mg/dL Normal 0.70-1.30 [facility] Comment on above: Performed By: #### B MP #### [facility] [address] [address] [address] Linden Jansen EGFR-AF CHADIAN >60 Normal >=60 [facility] Comment on above: Performed By: #### B MP #### [facility] [address] [address] [address] Linden Jansen EGFR-NON AF CHADIAN >60 Normal >=60 [facility] Comment on above: Performed By: #### B MP #### [facility] [address] [address] [address] Linden Jansen Glucose [Mass/Vol] 112 mg/dL Critically high 74-106 T [facility] Comment on above: Performed By: #### B MP #### [facility] [address] [address] [address] Linden Jansen Potassium [Moles/Vol] 4.0 mmol/L Normal 3.5-5.1 [facility] Comment on above: Performed By: #### B MP #### [facility] [address] [address] [address] Linden Jansne Sodium [Moles/Vol] 139 mmol/L Normal 136-145 [facility] Comment on above: Performed By: #### B MP #### [facility] [address] [place] [address] Dr. Linden Jansen Urea nitrogen [Mass/Vol] 18.0 mg/dL Normal 7.0-18.0 [facility] Comment on above: Performed By: #### B MP #### [facility] [address] [address] [address] Linden Jansen Urea nitrogen/Creatinine [Mass ratio] 17.6 mg/mg Normal [facility] Comment on above: Performed By: #### B MP #### [facility] [address] [id number] Linden Jansen URINE MICROSCOPIC ONLYon BACTERIA SMALL Abnormal NONE SEEN [facility] Comment on above: Performed By: #### B MP #### [facility] [address] [address] [address] Linden Jansen Bacteria identified Cx Nom (U) INDICATED Normal [facility] Comment on above: Performed By: #### B MP #### [facility] [address] [place] [address] Dr. Linden Jansen CAST NONE SEEN Normal NONE SEEN [facility] Comment on above: Performed By: #### B MP #### [facility] [address] [place] [address] Dr. Linden Jansen Crystals LM Nom (Urine sed) NONE SEEN Normal NONE SEEN [facility] Comment on above: Performed By: #### B MP #### [facility] [address] [place] [address] Dr. Linden Jansen Epithelial cells LM Ql (Urine sed) RARE Normal NONE SEEN /RARE [facility] Comment on above: Performed By: #### B MP #### [facility] [address] [place] [address] Dr. Linden Jansen MUCOUS NONE SEEN Normal NONE SEEN [facility] Comment on above: Performed By: #### B MP #### [facility] [address] [place] [address] Dr. Linden Jansen RBC (U) [#/Vol] /uL Abnormal 0-2 [facility] Comment on above: Performed By: #### B MP #### [facility] [address] [place] [address] Dr. Linden Jansen WBC 2-5 Abnormal NONE SEEN [facility] Comment on above: Performed By: #### B MP #### [facility] [address] [place] [address] Dr. Linden Jansen Formson 10-08-2021 Forms [id number]: 127 Normal [facility] Ambulatory Visit Summaryon 0 10-01-2021 Ambulatory Visit Summary DELIA ISLAS :1960 Visit Date:10/01/2021 Ambulatory Visit Instructions Your Diagnosis BPH with urinary obstruction Nocturia Tests Performed Urnls Dip Stick Auto w/o Microscopy POC [id number] Your Care Team Attending Physician - EDWARD SCHAEFER, Kirill Beck Primary Care Physician - Yudelka Mota MD This Is Your Medications List tamsulosin (Flomax 0.4 mg Cap) Contact prescribing physician if questions or concerns amlodipine (Norvasc 10 mg Tab) diclofenac (Diclofenac 75mg Tab-DR) omeprazole (omeprazole 20 mg Cap-DR) triamcinolone topical (triamcinolone Top 0.1% Crm) [Image Removed: STOP]Stop taking these medications dutasteride (Avodart 0.5 mg Cap) Procedures Performed Repair of left inguinal hernia (05/03/2020), Colonoscopy (01/19/2020), Cholecystectomy, Hemorrhoidectomy. Discharge Vitals Heart Rate (Peripheral) 87 Respiratory Rate 16 Blood Pressure 141/101 Height 186 cm Height 186.0 cm Weight 110 kg Weight 110.0 kg BMI 31.8 What to do next Scheduled Follow-Up Appointments Friday 2:30 PM EDT With: EDWARD SCHAEFER, Kirill Beck Where: [facility] Patient Educationon 10-02-19 22 Patient Education Nutrition Calorie Counting for Weight Loss Calories are units of energy. Your body needs a certain amount of calories from food to keep you going throughout the day. When you eat more calories than your body needs, your body stores the extra calories as fat. When you eat fewer calories than your body needs, your body caesy fat to get the energy it needs. Calorie counting means keeping track of how many calories you eat and drink each day. Calorie counting can be helpful if you need to lose weight. If you make sure to eat fewer calories than your body needs, you should lose weight. Ask your health care provider what a healthy weight is for you. For calorie counting to work, you will need to eat the right number of calories in a day in order to lose a healthy amount of weight per week. A dietitian can help you determine how many calories you need in a day and will give you suggestions on how to reach your calorie goal. ? A healthy amount of weight to lose per week is usually 1?2 lb (0.5?0.9 kg). This usually means that your daily calorie intake should be reduced by 500?750 calories. ? Eating 1,200 ? 1,500 calories per day can help most women lose weight. ? Eating 1,500 ? 1,800 calories per day can help most men lose weight. What is my plan? My goal is to have calories per day. If I have this many calories per day, I should lose around pounds per week. What do I need to know about calorie counting? In order to meet your daily calorie goal, you will need to: ? Find out how many calories are in each food you would like to eat. Try to do this before you eat. ? Decide how much of the food you plan to eat. ? Write down what you ate and how many calories it had. Doing this is called keeping a food log. To successfully lose weight, it is important to balance calorie counting with a healthy lifestyle that includes regular activity. Aim for 150 minutes of moderate exercise (such as walking) or 75 minutes of vigorous exercise (such as running) each week. Where do I find calorie information? The number of calories in a food can be found on a Nutrition Facts label. If a food does not have a Nutrition Facts label, try to look up the calories online or ask your dietitian for help. Remember that calories are listed per serving. If you choose to have more than one serving of a food, you will have to multiply the calories per serving by the amount of servings you plan to eat. For example, the label on a package of bread might say that a serving size is 1 slice and that there are 90 calories in a serving. If you eat 1 slice, you will have eaten 90 calories. If you eat 2 slices, you will have eaten 180 calories. How do I keep a food log? Immediately after each meal, record the following information in your food log: ? What you ate. Don't forget to include toppings, sauces, and other extras on the food. ? How much you ate. This can be measured in cups, ounces, or number of items. ? How many calories each food and drink had. ? The total number of calories in the meal. Keep your food log near you, such as in a small notebook in your pocket, or use a mobile rocio or website. Some programs will calculate calories for you and show you how many calories you have left for the day to meet your goal. What are some calorie counting tips? ? Use your calories on foods and drinks that will fill you up and not leave you hungry: ? Some examples of foods that fill you up are nuts and nut butters, vegetables, lean proteins, and high-fiber foods like whole grains. High-fiber foods are foods with more than 5 g fiber per serving. ? Drinks such as sodas, specialty coffee drinks, alcohol, and juices have a lot of calories, yet do not fill you up. ? Eat nutritious foods and avoid empty calories. Empty calories are calories you get from foods or beverages that do not have many vitamins or protein, such as candy, sweets, and soda. It is better to have a nutritious high-calorie food (such as an avocado) than a food with few nutrients (such as a bag of chips). ? Know how many calories are in the foods you eat most often. This will help you calculate calorie counts faster. ? Pay attention to calories in drinks. Low-calorie drinks include water and unsweetened drinks. ? Pay attention to nutrition labels for low fat or fat free foods. These foods sometimes have the same amount of calories or more calories than the full fat versions. They also often have added sugar, starch, or salt, to make up for flavor that was removed with the fat. ? Find a way of tracking calories that works for you. Get creative. Try different apps or programs if writing down calories does not work for you. What are some portion control tips? ? Know how many calories are in a serving. This will help you know how many servings of a certain food you can have. ? Use a measuring cup to measure serving sizes. You could (more content not included)... Normal [facility] Urology Office/Clinic Noteon 10-01-2021 Urology Office/Clinic Note Chief Complaint Follow up to TURP HPI Staff Delia is here today for a 2 week follow up PO TURP done on 09/13/21. TURP path shows benign prostatic hyperplasia with chronic prostatitis. Pt is currently taking Flomax 0.4. Previous Dx: BPH with urinary obstruction. Dysuria: _pt states he feels a sensation at the end of his penis for about 3 to 4 days not painful. Incomplete bladder emptying: _rarely Hematuria: _Denies Frequency: _Denies Urgency: _mild Nocturia: _1-2 times a night Stream: _varies from steady to weak stream Leaking: _Denies Post void dripping: _occ Wearing pads/ Depends: _Denies Urge incontinence: _Denies Stress incontinence: _Denies Incontinence without Sensory Awareness: _Denies Abdominal pain: _Denies Flank pain: _Denies Sexual complaints: _ History of Present Illness I have reviewed and verified the staff HPI to be accurate for this encounter. Review of Systems PHQ Score Initial Depression Screen Score: 0 ROS - Provider Constitutional: denies weight loss, denies hot flashes. Eyes: mild eye problems. Wears Glasses Gastrointestinal: denies nausea, denies vomiting. Cardiovascular: denies chest pain or angina. Integumentary: no dryness Musculoskeletal: denies musculoskeletal symptoms. ENMT: denies otolaryngeal symptoms. Respiratory: no shortness of breath. Heme/Lymph: denies easy bleeding tendency, denies easy bruising tendency. Psychiatric: no confusion, no anxiety. Genitourinary: denies dysuria, denies hematuria, denies discharge, denies urinary frequency, denies urinary hesitancy, mild nocturia, denies incontinence, denies genital sores, denies decreased libido, and denies erectile dysfunction. Physical Exam Vitals & Measurements HR: 87(Peripheral) RR: 16 BP: 141/101 HT: 186 cm HT: 186.0 cm WT: 110 kg WT: 110.0 kg BMI: 31.8 General Appearance: alert, no distress, well nourished, well developed male. Flank Pain: none. Bladder: nonpalpable. Assessment/Plan 1. BPH with urinary obstruction (N40.1: Benign prostatic hyperplasia with lower urinary tract symptoms) Good stream, He did have a sudden urge with holding his urine for extended periods of time. He is to void q 2-3 hours by the clock during the day. He passed a scab recently and saw some pink urine after straining with bowel movement. Patient to wean off Tamsulosin 0.4mg qd therapy, he will take it QOD and then stop in 1 week. Patient to greatly increase water consumption to 8 bottles of water per day. PSA was done 01/27/21 0.08. S/p TURP done 09/13/21. Pathology was reviewed today with patient showing chronic prostatitis, no cancer present. Patient is having a sensation at end of penis, should go away with time, probably from the catheter. Discussed retrograde ejaculation side effect with patient, happens to 70 % of patients. The pathology report was reviewed with the patient in detail today. There is no evidence of malignancy and no further evaluation of the tissue removed is planned. All questions were answered and the report discussed in terms that the patient could understand. 2. Nocturia (R35.1: Nocturia) Mild, 1-2 times per night I have reviewed the previous health history and record for this patient with Dr. Rojas. f/u in 3 months. Follow-up With When Contact Information EDWARD SCHAEFER, Kirill Beck, LATRICE In 3 months [facility] [address], [place] [address] [phone] Additional Instructions: f/u in 3 months Patient Education Calorie Counting for Weight Loss Transurethral Resection of the Prostate, Care After Peggy Arredondo, personally scribed for Dr. Rojas on 10/01/2021 10:42:36. . Documentation recorded by the scribericci, accurately reflects the services(s) I performed and decisions made by me. Authenticated by Dr. Rojas on 10/01/2021 10:44:59. Problem List/Past Medical History Ongoing Benign essential hypertension BPH with urinary obstruction Carpal tunnel syndrome Hemorrhoids Left inguinal hernia Screening for malignant neoplasm of colon Varicose veins of lower extremity Historical Hernia, inguinal, left Procedure/Surgical History Repair of left inguinal hernia (05/03/2020), Colonoscopy (01/19/2020), Cholecystectomy, Hemorrhoidectomy. Medications Avodart 0.5 mg Cap, 0.5 mg= 1 cap(s), Oral, Daily, 3 refills, Not taking Diclofenac 75mg Tab-DR, 75 mg, Oral, BID Flomax 0.4 mg Cap, 0.4 mg= 1 cap(s), Oral, Daily Norvasc 10 mg Tab, 10 mg= 1 tab(s), Oral, Daily omeprazole 20 mg Cap-DR, 20 mg= 1 cap(s), Oral, Daily triamcinolone Top 0.1% Crm, 1 rocio, Topical, BID Allergies No Known Allergies No Known Medication Allergies Social History Alcohol Current, Beer, 1-2 times per month, 09/21/2019 Substance Abuse - Denies Substance Abuse, 09/21/2019 Tobacco Former smoker, quit more than 30 days ago Tobacco Use:. Never Smokeless Tobacco Use:., 10/01/2021 Former smoker, quit m (more content not included)... [facility] Comment on above: Result Comment: Elec tronically Signed By: EDWARD SCHAEFER, Kirill Beck\.br\Date and Time Signed: 10/01/21 10:45 EDT\.br\Electronically Co-Signed By: Peggy White\.br\Date and Time Co-Signed: 10/01/21 10:43 EDT Pathology Noteon 09-25-2021 Pathology Note [id number]: 127 [facility] Operative Reporton Operative Report [id number]: 127 [facility] Provider Letteron 09-20-2021 Provider Letter (Inserted Image. Katie ble to display) September 20, 2021 DELIA ISLAS [address] [place] [id number] DELIA ISLAS 1960 To Whom It May Concern, Please excuse above patient from work. Date of Illness: From: 09/20/21 To: 09/23/21 May Return to Work On:09/24/21 Restrictions: No heavy lifting over 25 pounds until 10/04/21 Comments: Patient may resume normal activity after 10/04/21 Sincerely, Kirill Rojas M.D., F.A.C.S. [facility] [address] [place] [id number] Date was corrected for 09/13/21 for surgery date. [facility] Ambulatory Visit Summaryon 0 09-18-2021 Ambulatory Visit Summary DELIA ISLAS :1960 Visit Date:09/18/2021 Ambulatory Visit Instructions Your Care Team Attending Physician - EDWARD SCHAEFER, Kirill Beck Primary Care Physician - Yudelka Mota MD This Is Your Medications List amlodipine (Norvasc 10 mg Tab) diclofenac (Diclofenac 75mg Tab-DR) dutasteride (Avodart 0.5 mg Cap) omeprazole (omeprazole 20 mg Cap-DR) tamsulosin (Flomax 0.4 mg Cap) triamcinolone topical (triamcinolone Top 0.1% Crm) Procedures Performed Repair of left inguinal hernia (05/03/2020), Colonoscopy (01/19/2020), Cholecystectomy, Hemorrhoidectomy. What to do next Scheduled Follow-Up Appointments Friday 9:30 AM EDT With: Kirill ROJAS MD Where: [facility] Auth for Release of Medical Recordson 09-18-2021 Auth for Release of Medical Records [id number]: 127 Normal [facility] Lab Reportson 09-12-2021 Lab Reports [id number]:1 27 [facility] Covid-19 PCR (CVDTB)on 08-20 SARS-CoV-2 (COVID-19) RNA HARSHAD+probe Ql (Unsp spec) Not detected Normal NOT DETECTED [facility] Comment on above: Result Comment: This test is not yet approved or cleared by the [place] FDA. When there are no FDA-approved or cleared tests available, and other criteria are met, FDA can make tests available under an emergency access mechanism called an Emergency Use Authorization (EUA). The EUA for this test is supported by the [place] of Health and Human Service's (HHS's) declaration that circumstances exist to justify the emergency use of in vitro diagnostics for the detection and/or diagnosis of the virus that causes COVID-19. This EUA will remain in effect (meaning this test can be used) for the duration of the COVID-19 declaration justifying emergency of IVDs, unless it is terminated or revoked by FDA (after which the test may no longer be used). When diagnostic testing is negative, the possibility of a false negative should be considered in the context of a patient's recent exposures and the presence of clinical signs and symptoms consistent with SARS-CoV-2. Performed By: #### C VDTB #### [facility] [address] [place] [address] Dr. Linden Jansen ECG 12-Leadon 08-24-2021 ECG 12-Lead [id number]: 127 Normal [facility] Lab Reportson 08-24-2021 Lab Reports [id number]: 127 Normal [facility] CBC AUTO DIFFon 08-23-2021 BASO # 0.1 103/ul Normal 0.0-0.1 [facility] Comment on above: Performed By: #### B MP #### [facility] [address] [place] [address] Dr. Linden Jansen Basophils/100 WBC (Bld) 1.4 % Normal 0.2-2.0 [facility] Comment on above: Performed By: #### B MP #### [facility] [address] [place] [address] Dr. Linden Jansen EO # 0.2 103/ul Normal 0.0-0.7 [facility] Comment on above: Performed By: #### B MP #### [facility] [address] [place] [address] Dr. Linden Jansen Eosinophils/100 WBC (Bld) 3.4 % Normal 0.9-7.0 [facility] Comment on above: Performed By: #### B MP #### [facility] [address] [place] [address] Dr. Linden Jansen Erythrocyte distribution width (RBC) [Ratio] 13.5 % Normal 11.0-15.0 [facility] Comment on above: Performed By: #### B MP #### [facility] [address] [place] [address] Dr. Linden Jansen Hematocrit (Bld) [Volume fraction] 44.1 % Normal 42.0-54.0 [facility] Comment on above: Performed By: #### B MP #### [facility] [address] [address] [address] Linden Jansen Hemoglobin (Bld) [Mass/Vol] 14.6 g/dL Normal 14.0-18.0 [facility] Comment on above: Performed By: #### B MP #### [facility] [address] [place] [address] Dr. Linden Jansen IG # 0.08 10e3/ul Critically high 0.00-0.03 [facility] Comment on above: Performed By: #### B MP #### [facility] [address] [place] [address] Dr. Linden Jansen IG % 1.1 % Critically high 0.0-0.5 [facility] Comment on above: Performed By: #### B MP #### [facility] [address] [place] [address] Dr. Linden Jansen LYMPH # 1.7 103/ul Normal 1.2-3.8 [facility] Comment on above: Performed By: #### B MP #### [facility] [address] [place] [address] Dr. Linden Jansen Lymphocytes/100 WBC (Bld) 24.2 % Normal 20.5-60.0 [facility] Comment on above: Performed By: #### B MP #### [facility] [address] [place] [address] Dr. Linden Jansen MANUAL DIFF REQ NO Normal [facility] Comment on above: Performed By: #### B MP #### [facility] [address] [place] [address] Dr. Linden Jansen MCH (RBC) [Entitic mass] 28.3 pg Normal 25.9-34.0 [facility] Comment on above: Performed By: #### B MP #### [facility] [address] [place] [address] Dr. Linden Jansen MCHC (RBC) [Mass/Vol] 33.1 g/dL Normal 29.9-35.2 [facility] Comment on above: Performed By: #### B MP #### [facility] [address] [address] [address] Linden Jansen MCV (RBC) [Entitic vol] 85.6 fL Normal 80.0-94.0 [facility] Comment on above: Performed By: #### B MP #### [facility] [address] [place] [address] Dr. Linden Jansen MONO # 0.8 103/ul Normal 0.3-0.8 [facility] Comment on above: Performed By: #### B MP #### [facility] [address] [place] [address] Dr. Linden Jansen Monocytes/100 WBC (Bld) 11.7 % Normal 1.7-12.0 [facility] Comment on above: Performed By: #### B MP #### [facility] [address] [place] [address] Dr. Linden Jansen NEUT # 4.2 103/ul Normal 1.4-6.5 [facility] Comment on above: Performed By: #### B MP #### [facility] [address] [place] [address] Dr. Linden Jansen Neutrophils/100 WBC (Bld) 58.2 % Normal 43.0-75.0 [facility] Comment on above: Performed By: #### B MP #### [facility] [address] [place] [address] Dr. Linden Jansen Platelet mean volume (Bld) [Entitic vol] 10.3 fL Normal 9.5-13.5 [facility] Comment on above: Performed By: #### B MP #### [facility] [address] [place] [address] Dr. Linden Jansen PLT 228 103/ul Normal 150-450 [facility] Comment on above: Performed By: #### B MP #### [facility] [address] [place] [address] Dr. Linden Jansen RBC 5.15 106/ul Normal 4.70-6.10 [facility] Comment on above: Performed By: #### B MP #### [facility] [address] [place] [address] Dr. Linden Jansen WBC 7.2 103/ul Normal 4.0-11.0 [facility] Comment on above: Performed By: #### B MP #### [facility] [address] [place] [address] Dr. Linden Jansen PROF CHEM 8 (BAS METB)on Anion gap [Moles/Vol] 14.5 mmol/L Normal [facility] Comment on above: Performed By: #### B MP #### [facility] [address] [place] [address] Dr. Linden Jansen Calcium [Mass/Vol] 8.8 mg/dL Normal 8.5-10.1 [facility] Comment on above: Performed By: #### B MP #### [facility] [address] [place] [address] Dr. Linden Jansen Chloride [Moles/Vol] 101 mmol/L Normal 98-107 [facility] Comment on above: Performed By: #### B MP #### [facility] [address] [place] [address] Dr. Linden Jansen CO2 [Moles/Vol] 25.5 mmol/L Normal 21.0-32.0 [facility] Comment on above: Performed By: #### B MP #### [facility] [address] [place] [address] Dr. Linden Jansen Creatinine [Mass/Vol] 1.04 mg/dL Normal 0.70-1.30 [facility] Comment on above: Performed By: #### B MP #### [facility] [address] [place] [address] Dr. Linden Jansen EGFR-AF CHADIAN >60 Normal >=60 [facility] Comment on above: Performed By: #### B MP #### [facility] [address] [place] [address] Dr. Linden Jansen EGFR-NON AF CHADIAN >60 Normal >=60 [facility] Comment on above: Performed By: #### B MP #### [facility] [address] [place] [address] Dr. Linden Jansen Glucose [Mass/Vol] 93 mg/dL Normal 74-106 [facility] Comment on above: Performed By: #### B MP #### [facility] [address] [address] [address] Linden Jansen Potassium [Moles/Vol] 4.0 mmol/L Normal 3.5-5.1 [facility] Comment on above: Performed By: #### B MP #### [facility] [address] [address] [address] Linden Jansen Sodium [Moles/Vol] 137 mmol/L Normal 136-145 [facility] Comment on above: Performed By: #### B MP #### [facility] [address] [place] [address] Dr. Linden Jansen Urea nitrogen [Mass/Vol] 20.0 mg/dL Critically high 7.0-18.0 [facility] Comment on above: Performed By: #### B MP #### [facility] [address] [place] [address] Dr. Linden Jansen Urea nitrogen/Creatinine [Mass ratio] 19.2 mg/mg Normal [facility] Comment on above: Performed By: #### B MP #### [facility] [address] [place] [address] Dr. Linden Jansen PROTIMEon 08-23-2021 INR Coag (PPP) [Relative time] 1.05 {INR} Normal [facility] Comment on above: Performed By: #### P TT, PT #### [facility] [address] [place] [address] Dr. Linden Jansen INR GUIDELINES SEE BELOW Normal [facility] [place] Comment on above: Result Comment: DILAN RED INR: 2.0 - 3.0 CONDITIONS NOT LISTED BELOW 2.5 - 3.5 FOR PROSTHETIC HEART VALVE REPLACEMENT 2.5 - 3.5 RECURRENT THROMBOSIS Performed By: #### P TT, PT #### [facility] [address] [place] [address] Dr. Linden Jansen PT Coag (PPP) [Time] 11.3 s Normal 9.0-11.6 [facility] Comment on above: Performed By: #### P TT, PT #### [facility] [address] [place], [place] [address] Dr. Linden Jansen PTTon 08-23-2021 aPTT Coag (Bld) [Time] 32.8 s Normal 22.3-36.2 [facility] Comment on above: Performed By: #### P TT, PT #### [facility] [address] [place], [place] [address] Dr. Linden Jansen [facility] SARS-CoV-2 (COVID-19) RNA HARSHAD+probe Ql (Unsp spec) Not detected Normal NOT DETECTED [facility] Comment on above: Result Comment: This test is not yet approved or cleared by the [place] FDA. When there are no FDA-approved or cleared tests available, and other criteria are met, FDA can make tests available under an emergency access mechanism called an Emergency Use Authorization (EUA). The EUA for this test is supported by the [place] of Health and Human Service's (HHS's) declaration that circumstances exist to justify the emergency use of in vitro diagnostics for the detection and/or diagnosis of the virus that causes COVID-19. This EUA will remain in effect (meaning this test can be used) for the duration of the COVID-19 declaration justifying emergency of IVDs, unless it is terminated or revoked by FDA (after which the test may no longer be used). When diagnostic testing is negative, the possibility of a false negative should be considered in the context of a patient's recent exposures and the presence of clinical signs and symptoms consistent with SARS-CoV-2. Performed By: #### C VDTBH #### [facility] [address] [place], [place] [address] Dr. Linden Jansen Vital Signs Date Time Vital Sign Value Performing Clinician Tomas iqbal 07-29-2022 13:51-0400 Blood Pressure Location Kirill ROJAS [facility] 07-29-2022 13:51-0400 Diastolic blood pressure 87 mm[Hg] Kirill ROJAS [facility] 07-29-2022 13:51-0400 Heart rate 68 /min Kirill ROJAS [facility] 07-29-2022 13:51-0400 Respiratory rate 16 /min Kirill ROJAS [facility] 07-29-2022 13:51-0400 Systolic blood pressure 140 mm[Hg] Kirill ROJAS [facility] 01-07-2022 15:18-0400 Blood Pressure Location Kirill ROJAS [facility] 01-07-2022 15:18-0400 Diastolic blood pressure 97 mm[Hg] Kirill ROJAS [facility] 01-07-2022 15:18-0400 Heart rate 81 /min Kirill ROJAS [facility] 01-07-2022 15:18-0400 Respiratory rate 16 /min Kirill ROJAS [facility] 01-07-2022 15:18-0400 Systolic blood pressure 156 mm[Hg] Kirill ROJAS [facility] 10-01-2021 09:59-0400 Blood Pressure Location Kirill ROJAS [facility] 10-01-2021 09:59-0400 Diastolic blood pressure 101 mm[Hg] Kirill ROJAS [facility] 10-01-2021 09:59-0400 Heart rate 87 /min Kirill ROJAS [facility] 10-01-2021 09:59-0400 Respiratory rate 16 /min Kirill ROJAS [facility] 10-01-2021 09:59-0400 Systolic blood pressure 141 mm[Hg] Kirill ROJAS [facility] Encounters Encounter Date Encounter Type Care Provider Facility Start: 07-29-2022 End: 07-30-2022 ambulatory Kirill ROJAS Facility:[facility] Start: 07-29-2022 End: 07-29-2022 Patient encounter procedure Kirill ROJAS [facility] Start: 02-13-2022 Encounter for genera l adult medical examination without abnormal findings DR YUDELKA MOTA [facility] Start: 02-09-2022 End: 02-10-[address] YUDELKA MOTA Facility:[facility] Start: 02-09-2022 End: 02-10-2022 Encounter for general adult medical examination without abnormal findings DR YUDELKA MOTA Facility:[facility] Start: 01-07-2022 End: 01-08-2022 ambulatory Kirill ROJAS Facility:[facility] Start: 01-07-2022 End: 01-07-2022 Patient encounter procedure Kirill ROJAS [facility] Start: 10-18-2021 End: 10-19-2021 ambulatory Kirill ROJAS Facility:[facility] [place] Start: 10-18-2021 End: 10-18-2021 Patient encounter procedure Kirill ROJAS [facility] Start: 10-13-2021 End: 10-13-[address] GRACE BRIAN Facility:[facility] Start: 10-12-2021 End: 10-12-2021 ambulatory EDIE BENNETT Facility:[facility] Start: 10-01-2021 End: 10-02-2021 ambulatory Kirill ROJAS Facility:[facility] [place] Start: 10-01-2021 End: 10-01-2021 Patient encounter procedure Kirill ROJAS [facility] Start: 09-18-2021 End: 09-19-2021 ambulatory Kirill ROJAS Facility:[facility] [place] Start: 09-13-2021 Encounter for preprocedural laboratory examination DR KIRILL ROJAS [facility] Start: 09-13-2021 End: 09-14-[address] YUDELKA MOTA Facility:[facility] Start: 09-10-2021 End: 09-11-[address] KIRILL ROJAS Facility:[facility] Start: 09-10-2021 End: 09-11-2021 Encounter for preprocedural laboratory examination DR KIRILL ROJAS Facility:[facility] Start: 08-24-2021 Encounter for preprocedural cardiovascular examination DR KIRILL ROJAS [facility] Start: 08-24-2021 Encounter for preprocedural laboratory examination DR KIRILL ROJAS [facility] Start: 08-23-2021 End: 08-24-[address] KIRILL ROJAS Facility:[facility] Start: 08-23-2021 End: 08-24-2021 Encounter for preprocedural cardiovascular examination DR KIRILL ROJAS Facility:[facility] Start: 04-30-2021 End: 04-30-[address] KIRILL ROJAS Facility:[facility] Start: 04-25-2021 End: 04-25-[address] KIRILL ORJAS Facility:[facility] Procedures Date Procedure Procedure Detail Performing Clinician Start: 02-09-[address] CATA ROJAS Comment on above: Performed By: #### B MP #### [facility] [address] [place] [address] Dr. Linden Jansen Start: 09-13-2021 Transurethral prostatectomy Kirill ROJAS Start: 05-03-2020 Repair of left ingui nal hernia Kirill ROJAS Start: 01-19-2020 Colonoscopy Kirill ELIZALDE Cholecystectomy Kirill PINK Hemorrhoidectomy Kirill CHEEMA Immunizations Immunization Date Immunization Notes Care Provider [facility] 02-05-2022 influenza virus vaccine, unspecified formulation Kirill ROJAS [facility] 02-07-2021 SARS-CoV-2 (COVID-19 ) Ad26 vaccine, recombinant Kirill ROJAS [facility] 01-19-2021 influenza virus vaccine, unspecified formulation Kirill ROJAS [facility] 01-19-2021 SARS-CoV-2 (COVID-19 ) mRNA BNT-162b2 vax Kirill EDWARD [facility] 07-30-2020 SARS-CoV-2 (COVID-19 ) Ad26 vaccine, recombinant Kirill ROJAS [facility] 07-20-2020 SARS-CoV-2 (COVID-19 ) mRNA BNT-162b2 vax Kirill EDWARD [facility] 06-29-2020 SARS-CoV-2 (COVID-19 ) Ad26 vaccine, recombinant Kirill ROJAS [facility] 02-10-2020 influenza, unspecifi ed formulation Kirill ROJAS [facility] 02-02-2020 influenza virus vaccine, unspecified formulation Kirill ROJAS [facility] 02-11-2019 influenza, unspecifi ed formulation Kirill ROJAS [facility] 02-01-2019 influenza virus vaccine, unspecified formulation Kirill ROJAS [facility] 01-09-2019 influenza virus vaccine, unspecified formulation Kirill ROJAS [facility] NEGATED: Highlighted row has not occurred!05-10-2020 influenza virus vaccine, unspecified formulation Kirill ROJAS [facility] Payers Date Payer Category Payer Unknown [id number] 1960 Unknown [id number] 2.16.84 [id number] 1960 Unknown [id number] 2.16.84 [id number] 1960 Unknown [id number] 2.16.84 [id number] 1958 Unknown [id number] 2.16.84 [id number] 1958 Unknown [id number] 2.16.84 [id number] 1958 Unknown [id number] 2.16.84 [id number] 1958 Unknown [id number] 2.16.84 [id number] 1958 Unknown [id number] 2.16.84 [id number] 1958 Unknown [id number] 2.16.8 [id number] 1960 Unknown [id number] 2.16.8 [id number] 1958 Unknown [id number] 2.16.8 [id number] 1958 Unknown [id number] 2.16.8 [id number] 1960 Unknown [id number] 2.16.8 [id number] 1960 Unknown [id number] 2.16.8 [id number] Social History Date Type Detail Facility Start: 10-01-2021 End: 07-29-2022 Tobacco smoking status Ex-smoker (finding) [facility] Comment on above: quit 2006 Tobacco smoking status Never [facility] Comment on above: quit 2006 Sex Assigned At Male [facility] Functional Status Date Assessment Result Facility 07-29-2022 Functional Status N/A [facility] 01-07-2022 Functional Status N/A [facility] 10-01-2021 Functional Status N/A [facility] Hospital Discharge instructions 07-29-2022 Note Date & Type Note Facility 07-29-2022 Hospital Discharge instructions Patient Education 07/29/2022 08:37:07 Benign Prostatic Hyperplasia Benign Prostatic Hyperplasia Benign prostatic hyperplasia (BPH) is an enlarged prostate gland that is caused by the normal aging process and not by cancer. The prostate is a walnut-sized gland that is involved in the production of semen. It is located in front of the rectum and below the bladder. The bladder stores urine and the urethra is the tube that carries the urine out of the body. The prostate may get bigger as a man gets older. An enlarged prostate can press on the urethra. This can make it harder to pass urine. The build-up of urine in the bladder can cause infection. Back pressure and infection may progress to bladder damage and kidney (renal) failure. What are the causes? This condition is part of a normal aging process. However, not all men develop problems from this condition. If the prostate enlarges away from the urethra, urine flow will not be blocked. If it enlarges toward the urethra and compresses it, there will be problems passing urine. What increases the risk? This condition is more likely to develop in men over the age of 50 years. What are the signs or symptoms? Symptoms of this condition include: Getting up often during the night to urinate. Needing to urinate frequently during the day. Difficulty starting urine flow. Decrease in size and strength of your urine stream. Leaking (dribbling) after urinating. Inability to pass urine. This needs immediate treatment. Inability to completely empty your bladder. Pain when you pass urine. This is more common if there is also an infection. Urinary tract infection (UTI). How is this diagnosed? This condition is diagnosed based on your medical history, a physical exam, and your symptoms. Tests will also be done, such as: A post-void bladder scan. This measures any amount of urine that may remain in your bladder after you finish urinating. A digital rectal exam. In a rectal exam, your health care provider checks your prostate by putting a lubricated, gloved finger into your rectum to feel the back of your prostate gland. This exam detects the size of your gland and any abnormal lumps or growths. An exam of your urine (urinalysis). A prostate specific antigen (PSA) screening. This is a blood test used to screen for prostate cancer. An ultrasound. This test uses sound waves to electronically produce a picture of your prostate gland. Your health care provider may refer you to a specialist in kidney and prostate diseases (urologist). How is this treated? Once symptoms begin, your health care provider will monitor your condition (active surveillance or watchful waiting). Treatment for this condition will depend on the severity of your condition. Treatment may include: Observation and yearly exams. This may be the only treatment needed if your condition and symptoms are mild. Medicines to relieve your symptoms, including: ?Medicines to shrink the prostate. ?Medicines to relax the muscle of the prostate. Surgery in severe cases. Surgery may include: ?Prostatectomy. In this procedure, the prostate tissue is removed completely through an open incision or with a laparoscope or robotics. ?Transurethral resection of the prostate (TURP). In this procedure, a tool is inserted through the opening at the tip of the penis (urethra). It is used to cut away tissue of the inner core of the prostate. The pieces are removed through the same opening of the penis. This removes the blockage. ?Transurethral incision (TUIP). In this procedure, small cuts are made in the prostate. This lessens the prostate's pressure on the urethra. ?Transurethral microwave thermotherapy (TUMT). This procedure uses microwaves to create heat. The heat destroys and removes a small amount of prostate tissue. ?Transurethral needle ablation (TUNA). This procedure uses radio frequencies to destroy and remove a small amount of prostate tissue. ?Interstitial laser coagulation (ILC). This procedure uses a laser to destroy and remove a small amount of prostate tissue. ?Transurethral electrovaporization (TUVP). This procedure uses electrodes to destroy and remove a small amount of prostate tissue. ?Prostatic urethral lift. This procedure inserts an implant to push the lobes of the prostate away from the urethra. Follow these instructions at home: Take rfts-wuv-aeaphex and prescription medicines only as told by your health care provider. Monitor your symptoms for any changes. Contact your health care provider with any changes. Avoid drinking large amounts of liquid before going to bed or out in public. Avoid or reduce how much caffeine or alcohol you drink. Give yourself time when you urinate. Keep all follow-up visits as told by your health care provider. This is important. Contact a health care provider if: You have unexplained back pain. Your symptoms do not get better with treatment. You develop side effects from the medicine you are taking. Your urine becomes very dark or has a bad smell. Your lower abdomen becomes distended and you have trouble passing your urine. Get help right away if: You have a fever or chills. You suddenly cannot urinate. You feel lightheaded, or very dizzy, or you faint. There are large amounts of blood or clots in the urine. Your urinary problems become hard to manage. You develop moderate to severe low back or flank pain. The flank is the side of your body between the ribs and the hip. These symptoms may represent a serious problem that is an emergency. Do not wait to see if the symptoms will go away. Get medical help right away. Call your local emergency services (911 in the [place] Do not drive yourself to the hospital. Summary Benign prostatic hyperplasia (BPH) is an enlarged prostate that is caused by the normal aging process and not by cancer. An enlarged prostate can press on the urethra. This can make it hard to pass urine. This condition is part of a normal aging process and is more likely to develop in men over the age of 50 years. Get help right away if you suddenly cannot urinate. This information is not intended to replace advice given to you by your health care provider. Make sure you discuss any questions you have with your health care provider. Document Released: 04/07/2006 Document Revised: 03/02/2019 Document Reviewed: 05/12/2017 [employer] Patient Education [employer]. Follow Up Care 01/07/2022 16:22:59 With:EDWARD SCHAEFER, Kirill Beck, URL Address: [facility] [address], [place] [phone]- When: Unknown [facility] Hospital Discharge instructions 01-07-2022 Note Date & Type Note Facility 01-07-2022 Hospital Discharge instructions Patient Education 01/07/2022 16:15:17 Benign Prostatic Hyperplasia Benign Prostatic Hyperplasia Benign prostatic hyperplasia (BPH) is an enlarged prostate gland that is caused by the normal aging process and not by cancer. The prostate is a walnut-sized gland that is involved in the production of semen. It is located in front of the rectum and below the bladder. The bladder stores urine and the urethra is the tube that carries the urine out of the body. The prostate may get bigger as a man gets older. An enlarged prostate can press on the urethra. This can make it harder to pass urine. The build-up of urine in the bladder can cause infection. Back pressure and infection may progress to bladder damage and kidney (renal) failure. What are the causes? This condition is part of a normal aging process. However, not all men develop problems from this condition. If the prostate enlarges away from the urethra, urine flow will not be blocked. If it enlarges toward the urethra and compresses it, there will be problems passing urine. What increases the risk? This condition is more likely to develop in men over the age of 50 years. What are the signs or symptoms? Symptoms of this condition include: Getting up often during the night to urinate. Needing to urinate frequently during the day. Difficulty starting urine flow. Decrease in size and strength of your urine stream. Leaking (dribbling) after urinating. Inability to pass urine. This needs immediate treatment. Inability to completely empty your bladder. Pain when you pass urine. This is more common if there is also an infection. Urinary tract infection (UTI). How is this diagnosed? This condition is diagnosed based on your medical history, a physical exam, and your symptoms. Tests will also be done, such as: A post-void bladder scan. This measures any amount of urine that may remain in your bladder after you finish urinating. A digital rectal exam. In a rectal exam, your health care provider checks your prostate by putting a lubricated, gloved finger into your rectum to feel the back of your prostate gland. This exam detects the size of your gland and any abnormal lumps or growths. An exam of your urine (urinalysis). A prostate specific antigen (PSA) screening. This is a blood test used to screen for prostate cancer. An ultrasound. This test uses sound waves to electronically produce a picture of your prostate gland. Your health care provider may refer you to a specialist in kidney and prostate diseases (urologist). How is this treated? Once symptoms begin, your health care provider will monitor your condition (active surveillance or watchful waiting). Treatment for this condition will depend on the severity of your condition. Treatment may include: Observation and yearly exams. This may be the only treatment needed if your condition and symptoms are mild. Medicines to relieve your symptoms, including: ?Medicines to shrink the prostate. ?Medicines to relax the muscle of the prostate. Surgery in severe cases. Surgery may include: ?Prostatectomy. In this procedure, the prostate tissue is removed completely through an open incision or with a laparoscope or robotics. ?Transurethral resection of the prostate (TURP). In this procedure, a tool is inserted through the opening at the tip of the penis (urethra). It is used to cut away tissue of the inner core of the prostate. The pieces are removed through the same opening of the penis. This removes the blockage. ?Transurethral incision (TUIP). In this procedure, small cuts are made in the prostate. This lessens the prostate's pressure on the urethra. ?Transurethral microwave thermotherapy (TUMT). This procedure uses microwaves to create heat. The heat destroys and removes a small amount of prostate tissue. ?Transurethral needle ablation (TUNA). This procedure uses radio frequencies to destroy and remove a small amount of prostate tissue. ?Interstitial laser coagulation (ILC). This procedure uses a laser to destroy and remove a small amount of prostate tissue. ?Transurethral electrovaporization (TUVP). This procedure uses electrodes to destroy and remove a small amount of prostate tissue. ?Prostatic urethral lift. This procedure inserts an implant to push the lobes of the prostate away from the urethra. Follow these instructions at home: Take cgcf-gvo-znqzbgz and prescription medicines only as told by your health care provider. Monitor your symptoms for any changes. Contact your health care provider with any changes. Avoid drinking large amounts of liquid before going to bed or out in public. Avoid or reduce how much caffeine or alcohol you drink. Give yourself time when you urinate. Keep all follow-up visits as told by your health care provider. This is important. Contact a health care provider if: You have unexplained back pain. Your symptoms do not get better with treatment. You develop side effects from the medicine you are taking. Your urine becomes very dark or has a bad smell. Your lower abdomen becomes distended and you have trouble passing your urine. Get help right away if: You have a fever or chills. You suddenly cannot urinate. You feel lightheaded, or very dizzy, or you faint. There are large amounts of blood or clots in the urine. Your urinary problems become hard to manage. You develop moderate to severe low back or flank pain. The flank is the side of your body between the ribs and the hip. These symptoms may represent a serious problem that is an emergency. Do not wait to see if the symptoms will go away. Get medical help right away. Call your local emergency services (911 in the [place] Do not drive yourself to the hospital. Summary Benign prostatic hyperplasia (BPH) is an enlarged prostate that is caused by the normal aging process and not by cancer. An enlarged prostate can press on the urethra. This can make it hard to pass urine. This condition is part of a normal aging process and is more likely to develop in men over the age of 50 years. Get help right away if you suddenly cannot urinate. This information is not intended to replace advice given to you by your health care provider. Make sure you discuss any questions you have with your health care provider. Document Released: 04/07/2006 Document Revised: 03/02/2019 Document Reviewed: 05/12/2017 [employer] Patient Education 2020 [employer]. Follow Up Care 10/01/2021 10:51:50 With:EDWARD SCHAEFER, Kirill Beck, URL Address: [facility] [address], [place] [address]- [phone] When:07/07/2022 Comments:PVR [facility] Hospital Discharge instructions 10-01-2021 Note Date & Type Note Facility 10-01-2021 Hospital Discharg e instructions Patient Education 10/01/2021 10:33:43 Calorie Counting for Weight Loss Calorie Counting for Weight Loss Calories are units of energy. Your body needs a certain amount of calories from food to keep you going throughout the day. When you eat more calories than your body needs, your body stores the extra calories as fat. When you eat fewer calories than your body needs, your body casey fat to get the energy it needs. Calorie counting means keeping track of how many calories you eat and drink each day. Calorie counting can be helpful if you need to lose weight. If you make sure to eat fewer calories than your body needs, you should lose weight. Ask your health care provider what a healthy weight is for you. For calorie counting to work, you will need to eat the right number of calories in a day in order to lose a healthy amount of weight per week. A dietitian can help you determine how many calories you need in a day and will give you suggestions on how to reach your calorie goal. A healthy amount of weight to lose per week is usually 1 2 lb (0.5 0.9 kg). This usually means that your daily calorie intake should be reduced by 500 750 calories. Eating 1,200 1,500 calories per day can help most women lose weight. Eating 1,500 1,800 calories per day can help most men lose weight. What is my plan? My goal is to have calories per day. If I have this many calories per day, I should lose around pounds per week. What do I need to know about calorie counting? In order to meet your daily calorie goal, you will need to: Find out how many calories are in each food you would like to eat. Try to do this before you eat. Decide how much of the food you plan to eat. Write down what you ate and how many calories it had. Doing this is called keeping a food log. To successfully lose weight, it is important to balance calorie counting with a healthy lifestyle that includes regular activity. Aim for 150 minutes of moderate exercise (such as walking) or 75 minutes of vigorous exercise (such as running) each week. Where do I find calorie information? The number of calories in a food can be found on a Nutrition Facts label. If a food does not have a Nutrition Facts label, try to look up the calories online or ask your dietitian for help. Remember that calories are listed per serving. If you choose to have more than one serving of a food, you will have to multiply the calories per serving by the amount of servings you plan to eat. For example, the label on a package of bread might say that a serving size is 1 slice and that there are 90 calories in a serving. If you eat 1 slice, you will have eaten 90 calories. If you eat 2 slices, you will have eaten 180 calories. How do I keep a food log? Immediately after each meal, record the following information in your food log: What you ate. Don't forget to include toppings, sauces, and other extras on the food. How much you ate. This can be measured in cups, ounces, or number of items. How many calories each food and drink had. The total number of calories in the meal. Keep your food log near you, such as in a small notebook in your pocket, or use a mobile rocio or website. Some programs will calculate calories for you and show you how many calories you have left for the day to meet your goal. What are some calorie counting tips? Use your calories on foods and drinks that will fill you up and not leave you hungry: ?Some examples of foods that fill you up are nuts and nut butters, vegetables, lean proteins, and high-fiber foods like whole grains. High-fiber foods are foods with more than 5 g fiber per serving. ?Drinks such as sodas, specialty coffee drinks, alcohol, and juices have a lot of calories, yet do not fill you up. Eat nutritious foods and avoid empty calories. Empty calories are calories you get from foods or beverages that do not have many vitamins or protein, such as candy, sweets, and soda. It is better to have a nutritious high-calorie food (such as an avocado) than a food with few nutrients (such as a bag of chips). Know how many calories are in the foods you eat most often. This will help you calculate calorie counts faster. Pay attention to calories in drinks. Low-calorie drinks include water and unsweetened drinks. Pay attention to nutrition labels for low fat or fat free foods. These foods sometimes have the same amount of calories or more calories than the full fat versions. They also often have added sugar, starch, or salt, to make up for flavor that was removed with the fat. Find a way of tracking calories that works for you. Get creative. Try different apps or programs if writing down calories does not work for you. What are some portion control tips? Know how many calories are in a serving. This will help you know how many servings of a certain food you can have. Use a measuring cup to measure serving sizes. You could also try weighing out portions on a kitchen scale. With time, you will be able to estimate serving sizes for some foods. Take some time to put servings of different foods on your favorite plates, bowls, and cups so you know what a serving looks like. Try not to eat straight from a bag or box. Doing this can lead to overeating. Put the amount you would like to eat in a cup or on a plate to make sure you are eating the right portion. Use smaller plates, glasses, and bowls to prevent overeating. Try not to multitask (for example, watch TV or use your computer) while eating. If it is time to eat, sit down at a table and enjoy your food. This will help you to know when you are full. It will also help you to be aware of what you are eating and how much you are eating. What are tips for following this plan? Reading food labels Check the calorie count compared to the serving size. The serving size may be smaller than what you are used to eating. Check the source of the calories. Make sure the food you are eating is high in vitamins and protein and low in saturated and trans fats. Shopping Read nutrition labels while you shop. This will help you make healthy decisions before you decide to purchase your food. Make a grocery list and stick to it. Cooking Try to cook your favorite foods in a healthier way. For example, try baking instead of frying. Use low-fat dairy products. Meal planning Use more fruits and vegetables. Half of your plate should be fruits and vegetables. Include lean proteins like poultry and fish. How do I count calories when eating out? Ask for smaller portion sizes. Consider sharing an entree and sides instead of getting your own entree. If you get your own entree, eat only half. Ask for a box at the beginning of your meal and put the rest of your entree in it so you are not tempted to eat it. If calories are listed on the menu, choose the lower calorie options. Choose dishes that include vegetables, fruits, whole grains, low-fat dairy products, and lean protein. Choose items that are boiled, broiled, grilled, or steamed. Stay away from items that are buttered, battered, fried, or served with cream sauce. Items labeled crispy are usually fried, unless stated otherwise. Choose water, low-fat milk, unsweetened iced tea, or other drinks without added sugar. If you want an alcoholic beverage, choose a lower calorie option such as a glass of wine or light beer. Ask for dressings, sauces, and syrups on the side. These are usually high in calories, so you should limit the amount you eat. If you want a salad, choose a garden salad and ask for grilled meats. Avoid extra toppings like ghosh, cheese, or fried items. Ask for the dressing on the side, or ask for olive oil and vinegar or lemon to use as dressing. Estimate how many servings of a food you are given. For example, a serving of cooked rice is cup or about the size of half a baseball. Knowing serving sizes will help you be aware of how much food you are eating at restaurants. The list below tells you how big or small some common portion sizes are based on everyday objects: ?1 oz 4 stacked dice. ?3 oz 1 deck of cards. ?1 tsp 1 . ?1 Tbsp a ping-pong ball. ?2 Tbsp 1 ping-pong ball. ? cup baseball. ?1 cup 1 baseball. Summary Calorie counting means keeping track of how many calories you eat and drink each day. If you eat fewer calories than your body needs, you should lose weight. A healthy amount of weight to lose per week is usually 1 2 lb (0.5 0.9 kg). This usually means reducing your daily calorie intake by 500 750 calories. The number of calories in a food can be found on a Nutrition Facts label. If a food does not have a Nutrition Facts label, try to look up the calories online or ask your dietitian for help. Use your calories on foods and drinks that will fill you up, and not on foods and drinks that will leave you hungry. Use smaller plates, glasses, and bowls to prevent overeating. This information is not intended to replace advice given to you by your health care provider. Make sure you discuss any questions you have with your health care provider. Document Released: 04/07/2006 Document Revised: 12/25/2018 Document Reviewed: 03/07/2017 [employer] Patient Education 2020 [employer]. 10/01/2021 10:33:36 Transurethral Resection of the Prostate, Care After Transurethral Resection of the Prostate, Care After This sheet gives you information about how to care for yourself after your procedure. Your health care provider may also give you more specific instructions. If you have problems or questions, contact your health care provider. What can I expect after the procedure? After the procedure, it is common to have: Mild pain in your lower abdomen. Soreness or mild discomfort in your penis from having the catheter inserted during the procedure. A feeling of urgency when you need to urinate. A small amount of blood in your urine. You may notice some small blood clots in your urine. These are normal. Follow these instructions at home: Medicines Take nory-lup-rtfrmop and prescription medicines only as told by your health care provider. If you were prescribed an antibiotic medicine, take it as told by your health care provider. Do not stop taking the antibiotic even if you start to feel better. Ask your health care provider if the medicine prescribed to you: ?Requires you to avoid driving or using heavy machinery. ?Can cause constipation. You may need to take actions to prevent or treat constipation, such as: ?Take trlo-fjd-ynhsqtm or prescription medicines. ?Eat foods that are high in fiber, such as fresh fruits and vegetables, whole grains, and beans. ?Limit foods that are high in fat and processed sugars, such as fried or sweet foods. Do not drive for 24 hours if you were given a sedative during your procedure. Activity Return to your normal activities as told by your health care provider. Ask your health care provider what activities are safe for you. Do not lift anything that is heavier than 10 lb (4.5 kg), or the limit that you are told, for 3 weeks after the procedure or until your health care provider says that it is safe. Avoid intense physical activity for as long as told by your health care provider. Avoid sitting for a long time without moving. Get up and move around one or more times every few hours. This helps to prevent blood clots. You may increase your physical activity gradually as you start to feel better. Lifestyle Do not drink alcohol for as long as told by your health care provider. This is especially important if you are taking prescription pain medicines. Do not engage in sexual activity until your health care provider says that you can do this. General instructions Do not take baths, swim, or use a hot tub until your health care provider approves. Drink enough fluid to keep your urine pale yellow. Urinate as soon as you feel the need to. Do not try to hold your urine for long periods of time. If your health care provider approves, you may take a stool softener for 2 3 weeks to prevent you from straining to have a bowel movement. Wear compression stockings as told by your health care provider. These stockings help to prevent blood clots and reduce swelling in your legs. Keep all follow-up visits as told by your health care provider. This is important. Contact a health care provider if you have: Difficulty urinating. A fever. Pain that gets worse or does not improve with medicine. Blood in your urine that does not go away after 1 week of resting and drinking more fluids. Swelling in your penis or testicles. Get help right away if: You are unable to urinate. You are having more blood clots in your urine instead of fewer. You have: ?Large blood clots. ?A lot of blood in your urine. ?Pain in your back or lower abdomen. ?Pain or swelling in your legs. ?Chills and you are shaking. ?Difficulty breathing or shortness of breath. Summary After the procedure, it is common to have a small amount of blood in your urine. Avoid heavy lifting and intense physical activity for as long as told by your health care provider. Urinate as soon as you feel the need to. Do not try to hold your urine for long periods of time. Keep all follow-up visits as told by your health care provider. This is important. This information is not intended to replace advice given to you by your health care provider. Make sure you discuss any questions you have with your health care provider. Document Released: 04/07/2006 Document Revised: 07/28/2019 Document Reviewed: 01/06/2019 [employer] Patient Education 2020 [employer]. Follow Up Care 09/18/2021 08:37:37 With:Kirill ROJAS MD, URL Address: [facility] [address], [place] [address]- [phone] When:Within 3 Month(s) Comments:f/u in 3 months [facility] Evaluation + Plan note Note Date & Type Note Facility Evaluation + Plan note Future Appointments Appointment Date:01/14/2022 02:30:00 PM Scheduled Provider:Kirill ROJAS MD [facility] Appointment Type:URO Office Visit Diagnostic Tests PendingPSA Total 10/01/21 [facility] Evaluation + Plan note Note Date & Type Note Facility Evaluation + Plan note Future Appointments Appointment Date:01/14/2022 02:30:00 PM Scheduled Provider:Kirill ROJAS MD [facility] Appointment Type:URO Office Visit [facility] Evaluation + Plan note Note Date & Type Note Facility Evaluation + Plan note Future Appointments Appointment Date:07/08/2022 03:00:00 PM Scheduled Provider:Kirill ROJAS MD [facility] Appointment Type:URO Office Visit [facility] Hospital course Narrative Note Date & Type Note Facility Hospital course Narrative No data available for this section [facility] Hospital Discharge instructions Note Date & Type Note Facility Hospital Discharge instructions No data available for this section [facility] Progress note Note Date & Type Note Facility Progress note No data available for this section [facility] Summary Purpose Family History No Family History Records FoundNo Family History Records Found Advance Directives No Advanced Directives Records FoundNo Advanced Directives Records Found Additional Source Comments Care Team (unrecognized sect ion and content) Personnel Name: Yudelka Mota MD Address: [address] [place] [address] Personnel Name: Yudelka Mota MD Address: [address] [place] [address] Personnel Name: Yudelka Mota MD Address: [address] [place] [address] Personnel Name: Yudelka Mota MD Address: Address: [address] [place] [address] (unrecognized sect ion and content) No Status Records FoundNo Status Records Found INFORMATION SOURCE (unrecogn ized section and content) DATE CREATED AUTHOR 02/14/2022 [facility] DATE CREATED AUTHOR AUTHOR'S ORGANIZ ATION 08/06/2022 [facility] FOR RECORDS PERTAINING TO PATIENTS WHO ARE OR HAVE BEEN ENROLLED IN A CHEMICAL DEPENDENCY/SUBSTANCEABUSE PROGRAM, SOME INFORMATION MAY BE OMITTED. This clinical summary was aggregated from multiple sources. Caution should be exercised in using it in the provision of clinical care. This summary normalizes information from multiple sources, and as a consequence, information in this document may materially change the coding, format and clinical context of patient data. In addition, data may be omitted in some cases. CLINICAL DECISIONS SHOULD BE BASED ON THE PRIMARY CLINICAL RECORDS. [facility]. provides no warranty or guarantee of the accuracy or completeness of information in this document.
[2024-03-06 10:27] LABS: Basophils Absolute Auto 0.1 10^3/uL (0.0-0.1); Eosinophils Absolute Auto 0.2 10^3/uL (0.0-0.7); Eosinophils Percent Auto 3.7 % (0.9-7.0); Hematocrit 46.3 % (42.0-54.0); Hemoglobin 15.7 g/dL (14.0-18.0); Immature Granulocytes Abs Auto 0.05 10^3/uL (0.00-0.03); Immature Granulocytes Pct Auto 0.8 % (0.0-0.5); Lymphocytes Absolute Auto 1.4 10^3/uL (1.2-3.8); Lymphocytes Percent Auto 23.4 % (20.5-60.0); Mean Corpuscular HGB Conc 33.9 g/dL (29.9-35.2); Mean Corpuscular Hemoglobin 29.4 pg (25.9-34.0); Mean Corpuscular Volume 86.7 fL (80.0-94.0); Mean Platelet Volume 10.2 fL (9.5-13.5); Monocytes Absolute Auto 0.6 10^3/uL (0.3-0.8); Monocytes Percent Auto 9.8 % (1.7-12.0); Neutrophils Absolute Auto 3.6 10^3/uL (1.4-6.5); Neutrophils Percent Auto 61.3 % (43.0-75.0); Platelet Count 218 10^3/uL (150-450); Red Blood Count 5.34 10^6/uL (4.70-6.10); Red Cell Distribution Width 13.2 % (11.0-15.0); White Blood Count 5.9 10^3/uL (4.0-11.0)
[2024-03-06 10:48] LABS: Estimated Average Glucose 111 mg/dL; Glycohemoglobin A1C 5.5 % (4.5-6.2)
[2024-03-06 11:07] LABS: Alanine Aminotransferase 26 U/L (16-63); Albumin Globulin Ratio 1.2; Albumin Level 3.9 g/dL (3.4-5.0); Alkaline Phosphatase 96 U/L (46-116); Anion Gap 15.8; Aspartate Amino Transferase 14 U/L (15-37); BUN Creatinine Ratio 16.1; Bilirubin Total 0.8 mg/dL (0.2-1.0); Calcium 9.1 mg/dL (8.5-10.1); Carbon Dioxide 24.4 mmol/L (21.0-32.0); Chloride 107 mmol/L (98-107); Chol HDL Ratio 4.8; Cholesterol 173 mg/dL (<=200); Estimated GFR (African America >60 (>=60 mL/min/1.73m^2); Estimated GFR (Non-African Ame 59 (>=60 mL/min/1.73m^2); Free T3 2.83 pg/mL (2.18-3.98); Globulin 3.3 g/dL; Glucose 105 mg/dL (74-106); HDL Cholesterol 36 mg/dL (40-60); Potassium 4.2 mmol/L (3.5-5.1); Sodium 143 mmol/L (136-145); Thyroid Stimulating Hormone 0.773 uIU/mL (0.358-3.740); Total Protein 7.2 g/dL (6.4-8.2); Triglycerides 128 mg/dL (<=150); Uric Acid 6.5 mg/dL (3.5-7.2); VLDL CHOLESTEROL 25.6 mg/dL
[2024-03-06 11:17] LABS: Prostate Specific Antigen Scrn 0.23 ng/mL (<=4.00)
== END 2024-03-06 10:02 | disposition home or self-care (01) ==
LOC: LAB 10:07
PROVIDERS: PCP Family Medicine; Visit Provider Family Medicine
DX: N40.0 Benign prostatic hyperplasia without lower urinary tract symptoms (principal); I10 Essential (primary) hypertension; K64.9 Unspecified hemorrhoids; K21.9 Gastro-esophageal reflux disease without esophagitis; M25.50 Pain in unspecified joint; K59.00 Constipation, unspecified; E78.5 Hyperlipidemia, unspecified; R73.09 Other abnormal glucose; E03.9 Hypothyroidism, unspecified; Z12.5 Encounter for screening for malignant neoplasm of prostate
CPT/HCPCS: 36415; 80053; 80061; 83036; 84436; 84443; 84481; 84550; 85025; G0103

== ENCOUNTER 2025-02-26 10:33 | Outpatient (OUT) | payer MEDICARE, SELFPAY ==
--- OUTSIDE RECORDS SUMMARY | 2025-02-23 11:00 | XMS_ITS ---
Author Organization [facility] in [place] Address [address] [place] [address] Care Team Providers Care Vasc Tech Name Role Phone Lester Mota Primary Care Provider Allergies No Known Allergies REASON FOR VISIT yearly Medications Medication SIG (Take, Route, Frequency, Duration) Notes Start Date End Date Status amLODIPine Besylate 10 mg TAKE 1 TABLET DAILY ActiveDiclofenac Sodium 75 MG1 tablet as needed Orally Twice a day; Duration: 30 daysActiveNexIUM 40 MG1 capsule Orally Once a dayActive Immunizations Vaccine Route Administration Date Status Comme nts Flu, Fluad (39733) 65 yrs and older, single-dose syringe ([id number]) IM Intramuscular 02/23/2025 Administered Social History Tobacco Use: Social History Observation Description Date Details (start date - stop date) Former Smoker 04/21/1982 - 04/21/2005 Tobacco Use/Smoking Question Answer Notes Patient is a former smoker When did you start smoking?04/21/1982When did you stop smoking?04/21/2005 Additional Findings: Tobacco Xpf-HuvfXh-dtzjq cigarette smoker (20-30/day) Vital Signs Blood pressure systolic 132 mm Hg 02/24/20 25 Blood pressure diastolic 82 mm Hg 025 Height 72 in 02/23/2025 Weight 254 lbs 02/23/2025 BMI 34.44 kg/m2 02/23/2025 Encounters Encounter Location Date Provider Diagnosis [facility] [address] [place] [address] 02/23/2025 Lester Mota Hypertension I10 ; B PH (benign prostatic hyperplasia) N40.0 ; GERD (gastroesophageal reflux disease) K21.9 ; Constipation K59.00 and Encounter for immunization Z23 Assessments Encounter Date Diagnosis (ICD Code) Assessment Notes Treatment Notes Treatment Clinical Notes Section Notes 02/23/2025 Hypertension (ICD-10 - I10) 5BPH (benign prostatic hyperplasia) (ICD-10 - N40.0)02/23/2025GERD (gastroesophageal reflux disease) (ICD-10 - K21.9)02/23/2025onstipation (ICD-10 - K59.00)02/23/2025Encounter for immunization (ICD-10 - Z23) Plan Of Treatment Pending Test Test Name Order Date HEMOGLOBIN A1C (GLYCO) 02/23/2025 LIPID PANEL (CHOL/TRIG/HDL/LDL) 02/24/20 25 THYROID PANEL (T4/TSH/FREE T3) PSA, SCREENING 02/23/2025 CMP (COMP MET CHERY) w/eGFR CKD-EPI 2024 CBC WITH DIFF 02/23/2025 Progress Notes * Mariam ISLASOB:1960 ([age] yo M)Acc No.[id number]:02/23/2025 Progress Note Patient: Bernabe HURT :?Keegan Mota ([facility]), MDDOB:1960???Age: 64 Y???Sex:MaleDate:02/23/2025Phone:[phone]:[address] [place], [place] [id number] In:03:45 PM ESTCheck Out:04:29 PM EST Subjective: * Chief Complaints: * Y early * HPI: ???General:? gerd - stable on meds HTN - stable? on meds - no SE Arthtirti symptoms - ating up with weather. * ROS: ???EENT:?hearing changes?denies.?visual changes?denies. non-healing mouth sores?denies.?swollen glands or neck lumps?denies.?hoarseness?denies.?sore throat?denies.?difficulty swallowing?denies.?nose bleeds?denies.?nasal congestion?denies.?ear ache?denies.?ear discharge denies.?ringing in ears?denies.?light sensitivity?denies.?eye pain?denies.?blurring?denies.?eye irritation?denies.?double vision?denies. vision loss?denies.?General/Constitutional:?Sweats:?Denies.?Fatigue?denies.?Sleep proble ms?denies.?Anorexia?denies.?Malaise?denies.?Weight loss?denies. Fatigue or Weakness?denies.?Fever or Chills?denies.?Cardiovascular:?Shortness of Breath w/lying flat?denies.?Lightheadedne ss/dizziness?denies.?Chest tightness/ heavy pressure?denies.?Swelling of legs, a nkles, or feet?denies.?Waking up with shortness of breath?denies.?Chest pain&#16 0;denies.?Palpitations?denies.?Weight gain?denies.?Respiratory:?Chronic or frequent cough?denies.?Coughing up blood&#1 60;denies.?Difficulty breathing?denies.?Productive cough?denies.?Snoring&#1 60;denies.?Shortness of breath that awakens from sleep (PND)?denies.?Chest pain? denies.?Sputum production?denies.?Wheezing?denies.?Musculoskeletal:?Joint pain?denies.?Joint Fluid?denies.?Backpain?denies.?Knee pain?denies.?Neck pain?denies.?Joint Stiffness?denies.?Muscle cramps?denies.?Weakness of muscles?denies.?Arthritis?denies.?Muscle aches?denies.?Pain in shoulder(s)?denies.?Swollen joints?denies.? * Active Problem List E66.3 Over weight Modified On:01/16/2023 Status:tvfvmeewiJ99.0BPH (benign prostatic hyperplasia) Modified On:01/16/2023 Status:wbohlenowD43.90Inguinal hernia Modified On:01/16/2023 Status:hagwnxifkX78.8Varicose vein Modified On:01/16/2023 Status:vkezvtkbrI30.00Carpal tunnel syndrome Modified On:01/16/2023 Status:jfwwfzhjzN52.9Hemorrhoid Modified On:01/16/2023 Status:cnkybumcsB32Jwogbedvcyfa Modified On:01/16/2023 Status:dfuoqkhrlP43.00Well adult Modified On:02/10/2023 Status:pvylrznvgT59.9GERD (gastroesophageal reflux disease) Modified On:03/05/2024 Status:vgdfkgyvjP25.50Arthralgia Modified On:03/05/2024 Status:duhtxvxvgW02.00Constipation Modified On:03/05/2024 Status:confirmed * Medical History: * Surgical History: c holecystectomy hemorrhoidectomy left inguinal herniorrhaphy URP 2021 * Hospitalization/Major Diagno stic Procedure: D enies Past Hospitalization * Family History: F ather: , diagnosed with Hypertension, Heart Disease. M other: , diagnosed with Hypertension. B rother(s): alive, diagnosed with Hypertension. 1 brother(s) . . * Social History: ???Tobacco Use:?Tobacco Use/Smoking?Patient is a?former smoker ?When did you start smoking??04/21/1982 ?When did you stop smoking??04/21/2005 ?Additional Findings: Tobacco Non-User?Ex-heavy cigarette smoker (20-30/day) * Medications: T akingamLODIPine Besylate 10 mg Tablet TAKE 1 TABLET DAILY Diclofenac Sodium 75 MG Tablet Delayed Release 1 tablet as needed Orally Twice a day NexIUM(Esomeprazole Magnesium) 40 MG Capsule Delayed Release 1 capsule Orally Once a day Taking amLODIPine Besylate 10 mg Tablet TAKE 1 TABLET DAILY Taking Diclofenac Sodium 75 MG Tablet Delayed Release 1 tablet as needed Orally Twice a day Taking NexIUM(Esomeprazole Magnesium) 40 MG Capsule Delayed Release 1 capsule Orally Once a day DiscontinuedAzithromycin 250 MG Tablet 2 tabs today then 1 tab Orally daily Discontinued Azithromycin 250 MG Tablet 2 tabs today then 1 tab Orally daily * Allergies: N .K.D.A.no[Allergies Verified] Objective: * Vitals: W t:254lbs, Ht: 72 in, BP:132/82mm Hg, BMI:34.44Index, Ht-cm: 182.88 cm, Wt-k.21 kg. * Examination: ???Physical Exam: ?GENERAL:?well developed, well nourished, in no acute distress.?HEAD:?normocephalic/atraumatic.?EYES:?pupils equal, round and reactive to light, conjunctivae and sclerae normal.?EARS:?no deformity or lesion of external ear, canals and TM appear normal bilaterally, TM's intact, not inflamed with normal light reflex, hearing grossly normal to conversational speech.?NOSE:?no deformity, discharge, inflammation, or lesions. ?MOUTH:?mucous membranes moist, normal oropharynx and posterior pharynx without lesions or exudates, tongue normal, dentition normal.?NECK:?neck supple, no masses or palpable cervical nodes, trachea midline, thyroid without nodules, masses, tenderness, or enlargement.?CHEST:?no chest wall deformity, no chest wall tenderness. ?LUNGS:?normal respiratory effort and clear to auscultation, no wheezes, rales, or rhonchi, good air exchange.?CARDIO:?regular rate and rhythm, normal S1 and S2, nor murmur, rub, or gallop.?PULSES:?normal capillary refill.?ABDOMEN:?soft, non-distended, non-tender, no masses.?MUSCULOSKELETAL:?no deformity or scoliosis noted, normal range of motion, joints normal, no erythema, edema, effusion, or ecchymosis.?EXTREMITY:?no clubbing, cyanosis, edema, or deformity withnormal ROM in both upper and lower bilateral extremities.?NEUROLOGIC:?grossly normal.?SKIN:?no rashes, ulcerations, or suspicious lesions.?LYMPH NODES:?no cervical adenopathy, nodes normal.?MENTAL STATUS:?alert and oriented x3, normal mood and affect.? Assessment: * Assessment: 1.?Hypertension - I10 (Primary)???2.?BPH (benign prostatic hyperplasia) - N 40.0???3.?GERD (gastroesophageal reflux disease) - K21.9???4. Constipation - K59.00???5.?Encounter for immunization - Z23??? Plan: * Treatment: ?LAB: HEMOGLOBIN A1C (GLYCO) ?LAB: LIPID PANEL (CHOL/TRIG/HDL/LDL) ?LAB: THYROID PANEL (T4/TSH/FREE T3) ?LAB: PSA, SCREENING ?LAB: CMP (COMP MET CHERY) w/eGFR CKD-EPI ?LAB: CBC WITH DIFF * Immunizations: Flu, Fluad (75153) 65 yrs and older, single-dose syringe ([id number]) : 0.5 mL (Route: Intramuscular) given by DALE Shaver on Right Deltoid (Encounter for immunization) * Procedure Codes: 9 0653 FLU VACCINE ADJUVANT [id number] ADMIN. [id number] DIAST BP 80-89 MM [id number] SYST BP GE 130 - 139MM HG * * Sign off status: CompletedVisit Status:?CHK (Check Out) true * [facility] S[facility] Date: 04/25/2024 Generated for Printing/Faxing/eTransmitting on:?02/26/2025 10:37 AM EST History and Physical Notes * HPI (History of Present Illness) CategorySub-CategoryDetailNotesCategory NotesGeneral gerd - stable on meds HTN - stable on meds - no SE Arthtirti symptoms - ating up with weather Examination CategorySub-CategoryDetailNotesCategory NotesPhysical ExamGENERAL:well developed, well nourished, in no acute distressHEAD:normocephalic/atraumatic EYES:pupils equal, round and reactive to light, conjunctivae and sclerae normal EARS:no deformity or lesion of external ear, canals and TM appear normal bilaterally, TM's intact, not inflamed with normal light reflex, hearing grossly normal to conversational speechNOSE:no deformity, discharge, inflammation, or lesionsMOUTH:mucous membranes moist, normal oropharynx and posterior pharynx without lesions or exudates, tonguenormal, dentition normalNECK:neck supple, no masses or palpable cervical nodes, trachea midline, thyroid without nodules, masses, tenderness, or enlargementCHEST:no chest wall deformity, no chest wall tendernessLUNGS:normal respiratory effort and clear to auscultation, no wheezes, rales, or rhonchi, good air exchangeCARDIO:regular rate and rhythm, normal S1 and S2, nor murmur, rub, or gallopPULSES:normal capillary refillABDOMEN:soft, non-distended, non-tender, no massesRECTAL:MUSCULOSKELETAL:no deformity or scoliosis noted, normal range of motion, joints normal, no erythema, edema, effusion, or ecchymosisEXTREMITY:no clubbing, cyanosis, edema, or deformity with normal ROM in both upper and lower bilateral extremitiesNEUROLOGIC:grossly normalSKIN:no rashes, ulcerations, or suspicious lesionsLYMPH NODES:no cervical adenopathy, nodes normalMENTAL STATUS:alert and oriented x3, normal mood and affect
--- OUTSIDE RECORDS SUMMARY | 2025-02-26 10:37 | XMS_ITS | CCD ---
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 Name Role Phone Yudelka Mota Primary Care Physician [phone] EDWARD, DR MARTINEZ Consulting Unavailable HOY, DR JHA Primary Care Unavailable LEON, DR MARTINEZ Admitting Unavailable LEON, DR MARTINEZ Attending Unavailable MORROW, CHARLY Consulting Unavailable LEON, DR MARTINEZ Attending Unavailable HOY, DR JHA Primary Care Unavailable LEON, DR MARTINEZ Consulting Unavailable LEON, DR MARTINEZ Admitting Unavailable LEON, DR MARTINEZ Attending Unavailable HOY, DR JHA Primary Care Unavailable LEON, DR MARTINEZ Consulting Unavailable LEON, DR MARTINEZ Admitting Unavailable HOY, DR JHA Admitting Unavailable HOY, DR JHA Attending Unavailable HOY, DR JHA Consulting Unavailable HOY, DR JHA Primary Care Unavailable LEON, DR MARTINEZ Attending Unavailable LEON, DR MARTINEZ Consulting Unavailable HOY, DR JHA Primary Care Unavailable LEON, DR MARTINEZ Admitting Unavailable HOY, DR JHA Primary Care Unavailable LEON, DR MARTINEZ Consulting Unavailable LEON, DR MARTINEZ Admitting Unavailable LEON, DR MARTINEZ Attending Unavailable AGUBOSIM, MARTHA Consulting Unavailable LONG, MICHAEL Consulting Unavailable DORKOSKKYLEIGH BIANCHI Consulting Unavailable EDIE BENNETT Consulting Unavailable MILLY, DR JHA Primary Care Unavailable EDIE BENNETT Admitting Unavailable EDIE BENNETT Attending Unavailable HAY, DR EDWARDS Consulting Unavailable HAY, DR EDWARDS Admitting Unavailable HAY, DR EDWARDS Attending Unavailable HOY, DR JHA Primary Care Unavailable EDWARD, Kirill Beck Attending Unavailable LEON, Kirill Beck Attending Unavailable LEON, Kirill Beck Attending Unavailable LEON, Kirill Beck Attending Unavailable LEON, Kirill Beck Attending Unavailable LEON, Kirill Beck Attending Unavailable Unavailable Primary Care Provider Unavailmaricel Mota MD, Yudelka Pacheco Primary Care Provider [phone] NADIA IRWIN Attending Unavailable Allergies Allergy ClassificationReported Allergen(s)Allergy TypeDate of OnsetReaction(s) Facility (1 source)No Known Medication Allergies; Translations: [No Known Medication Allergies]Propensity to adverse reactions (disorder)[facility] Repository Medications Current Medications MedicationDrug Class(es)DatesSig (Normalized)Sig (Original)amLODIPine 10 mg oral tablet (4 sources)Dihydropyridine Calcium Channel BlockerStart: 63-60-7740duyk 1 tablet by mouth once dailyNorvasc 10 mg Tab 10 mg = 1 tab(s), Oral, Daily, Refills(s) 0 Start Date: 09/07/19 Status: Ordereddiclofenac sodium 75 mg delayed release oral tablet (3 sources)Nonsteroidal Anti-inflammatory DrugStart: 37-81-3144rlro 1 tablet by mouth twice dailyDiclofenac 75mg Tab-DR 75 mg, Oral, BID, Refills(s) 0 Start Date: 01/03/20 Status: OrderedDiclofenac 75mg Tab-DR (1 source)Start: 09-14-8875ytok 1 tablet by mouth twice dailyDiclofenac 75mg Tab-DR 75 mg, Oral, BID, Refills(s) 0 Start Date: 01/03/20 Status: Ordered omeprazole 20 mg delayed release oral capsule (4 sources)Proton Pump InhibitorStart: 19-96-3635rfgi 1 capsule by mouth once dailyomeprazole 20 mg Cap-DR 20 mg = 1 cap(s), Oral, Daily Start Date: 09/21/19 Status: Orderedtamsulosin hydrochloride 0.4 mg oral capsule (2 sources)alpha-Adrenergic BlockerStart: 64-76-0167pdgq 1 capsule by mouth once dailyFlomax 0.4 mg Cap 0.4 mg = 1 cap(s), Oral, Daily, Refills(s) 0 Start Date: 09/07/19 Status: Sihbdgv06 hr tolterodine tartrate 2 mg extended release oral capsule (1 source)Cholinergic Muscarinic AntagonistStart: 90-80-4988vxyd 1 capsule by mouth once dailytolterodine 2 mg Cap-ER 2 mg = 1 cap(s), Oral, Daily, # 30 cap(s), Refills(s) 0, Pharmacy: [facility], 186, cm, 10/01/21 10:00:00 EDT, Height/Length Dosing, 110, kg, 10/01/21 10:00:00EDT, Weight Dosing Start Date: 10/09/21 Status: Ordered Completed/Discontinued Medications MedicationDrug Class(es)DatesSig (Normalized)Sig (Original)Triamcinolone (4 sources)CorticosteroidStart: 45-43-9533rustvelvyfrit Top 0.1% Crm 1 rocio, Topical, BID, Refill(s) 0, apply a thin film to affected area Start Date: 09/07/19 Status: OrderedStart: 81-24-2049pgzlaeoieddwr Top 0.1% Crm 1 rocio, Topical, BID, Refill(s) 0, apply a thin film to affected area Start Date: 09/07/19 Status: Ordered Problems Active Problems Problem ClassificationProblemDateDocumented DateEpisodic/ChronicAbdominal hernia (8 sources)Left inguinal orzgai16-24-5482AzqpbvfvGqknzrgyps disorders (1 source)Gastro-esophageal reflux disease without esophagitis; Translations: [GERD WITHOUT ESOPHAGITIS]Onset: 12-38-7283LzimhoiVoovrmiex hypertension (5 sources)Benign essential hypertension; Translations: [Essential (primary) hypertension]Onset: 793749-07-7700FdxntjwBqxjujutdtuol symptoms and ill- defined conditions (1 source)Presence of urogenital implants; Translations: [PRESENCE OF UROGENITAL IMPLANTS]Onset: 52-99-8001XgftbsgGvxhkjiljmlnw symptoms and ill-defined conditions (8 sources)Nocturia; Translations: [Nocturia]Onset: 92-83-0911PeonidenGiwfqwsk; including migraine (3 sources)Headache; including migraine; Translations: [HEADACHE UNSPECIFIED] Onset: 75-89-3724Dudlgnnwwiz (4 sources)Bhbprekuooo49-11-9613AkeyxxtxHkqabpnjbob of prostate (13 sources)Benign prostatic hypertrophy with outflow obstruction; Translations: [Benign prostatic hyperplasia with lower urinary tract symptoms]Onset: 64-64-5144JiradtaDdwnngegnxhj conditions of male genital organs (1 source)Chronic prostatitis; Translations: [CHRONIC PROSTATITIS]Onset: 48-52-5164YgxeibvSrrco ear and sense organ disorders (5 sources)Asymmetrical sensorineural hearing loss; Translations: [Sensorineural hearing loss, bilateral]12-95-6981DwejgldGfmdt ear and sense organ disorders (1 source)Bilateral tinnitus; Translations: [Tinnitus, bilateral]06-04-2024 EpisodicOther nervous system disorders (4 sources)Carpal tunnel gmfrkleb33-37-4050MfoymvfKyevv screening for suspected conditions (not mental disorders or infectious disease) (1 source)Encounter for screening for malignant neoplasm of prostate; Translations: [ENC SCREEN MALIG NEOPLASM PROSTATE]Onset: 21-33-8489Owlprebl Unclassified (4 sources)Patient encounter uwvhsb91-36-0808Jtolounysnpx (1 source)CONTACT W/AND (SUSP) EXPOS COVID-19; Translations: [CONTACT W/AND (SUSP) EXPOS COVID-19]Onset: 83-18-4236Ielszhmw veins of lower extremity (4 sources)Varicose veins of lower -91-3373Ccfzwlmd Past or Other Problems Problem ClassificationProblemDateDocumented DateEpisodic/ChronicOther aftercare (1 source)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 Left Ear: Mild to severe sensorineural hearing loss above 1K Hz. [facility] HealthcareLab Reportson 31-74-5693Rjz Reports [id number]#1.00CD:127ShaquilleLicking Memorial HospitalPatient Educationon 13-39-4918Yrjfqsc EducationUrology Benign Prostatic Hyperplasia Benign prostatic hyperplasia (BPH) is an enlarged prostate gland that is caused by the normal agingprocess and not by cancer. The prostate is [...] urine that may remain in your bladder afteryou finish urinating. ? A digital rectal exam. [...] this procedure, a tool is inserted through theopening at the tip of the penis (urethra). [...] procedure uses radio frequencies to destroy and removea small amount of prostate tissue. ? Interstitial laser coagulation (ILC). This procedure uses a laser to destroy and remove a small amount of prostate tissue. ? Transurethral electrovaporization (TUVP). This procedure uses electrodes to destroy and remove a small amount of prostate tissue. ? Prostatic urethral lift. This procedure inserts an implant to push the lobes of the prostate awayfrom the urethra. Follow these instructions at home: ? Take xvqf-eve-irgkczq and prescription medicines only as told by [...] treatment. ? You d (more content not included)...[facility] Office/Clinic Noteon 58-23-5189Dwyqwvq Office/Clinic NoteChief Complaint 6m HPI Staff 6m to BPH [...] and history for this patient from Dr. Leon. I have reviewed and verified the staff [...] (N40.0: Benign prostatic hyperplasia without lower urinary tractsymptoms) PSA: 01/27/21 - 0.08 02/09/23 - 0.38 [...] Kirill Beck, URL [facility] [address] [place] [address]- Additional Instructions: PRN Patient Education Benign Prostatic Hyperplasia I, Shivani Latham, personally scribed for Dr. Leon on 07/29/2022 15:10:25. . Documentation recorded by the scribe, Shivani Latham, accurately reflects the services(s) I performed and decisions made by me. Authenticated by Dr. Leon on 07/29/2022 15:12:01. Problem List/Past Medical History [...] Small (07/29/22 13:45:00) Blood (more content not included)...[facility] HospitalComment on above:Result Comment: Electronically Signed By: Kirill LEON MD\.br\Date and Time Signed: 07/29/22 15:12 EDT\.br\Electronically Co-Signed By: Shivani Latham\.br\Date and Time Co-Signed: 07/29/22 15:11 EDTINSULINon 02-11-2022 Oiriewm28.6 uIU/mLNormal2.6-24.9The [facility] - AndersonComment on above:Performed By: #### INSULIN #### [facility] [address] [place] [address] Dr. Linden Burgess AUTO DIFFon 49-73-3124MPNY #0.1 103/ulNormal0.0-0.1The [facility] - AndersonComment on above:Performed By: #### BMP #### [facility] [address] [place] [address] Dr. Linden Restreposophils/100 WBC (Bld)0.9 %Normal0.2-2.0[facility] Comment on above:Performed By: #### BMP #### [facility] [address] [place] [address] Dr. Linden Crisostomo #0.2 103/ulNormal0.0-0.7The [facility] AndersonComment on above: Performed By: #### BMP #### [facility] [address] [place] [address] Dr. Linden Carneyosinophils/100 WBC (Bld)3.2 %Normal0.9-7.0The [facility] Comment on above:Performed By: #### BMP #### [facility] [address] [place] [address] Dr. Linden Carneyrythrocyte distribution width (RBC) [Ratio]13.9 %Nsxboe65.0-15.0 The [facility] AndersonComment on above:Performed By: #### BMP #### [facility] [address] [place] [address] Dr. Linden JansenHematocrit (Bld) [Volume fraction]45.2 %Foclvm05.0-54.0The [facility] AndersonComment on above:Performed By: #### BMP #### [facility] [address] [place] [address] Dr. Linden JansenHemoglobin (Bld) [Mass/Vol]14.8 g/hTViaovc80.0-18.0The [facility] AndersonComment on above:Performed By: #### BMP #### [facility] [address] [place] [address] Dr. Linden Greer #0.06 10e3/ulCritically high0.00-0.03The [facility] Comment on above:Performed By: #### BMP #### [facility] [address] [place] [address] Dr. Linden Greer %0.9 %Critically high0.0-0.5The [facility] AndersonComment on above:Performed By: #### BMP #### [facility] [address] [place] [address] Dr. Linden LeeMPH #1.7 103/ulNormal1.2-3.8The [facility] AndersonComment on above:Performed By: #### BMP #### [facility] [address] [place] [address] Dr. Linden Leemphocytes/100 WBC (Bld)25.6 %Leotvy34.5-60.0The [facility] - AndersonComment on above:Performed By: #### BMP #### [facility] [address] [place] [address] Dr. Linden Salazar DIFF REQNONormalThe [facility] - AndersonComment on above: Performed By: #### BMP #### [facility] [address] [place] [address] (RBC) [Entitic mass]28.5 fvRxemxb14.9-34.0The [facility] AndersonComment on above:Performed By: #### BMP #### [facility] [address] [place] [address] (RBC) [Mass/Vol]32.7 g/uRCnozpn37.9-35.2The [facility] AndersonComment on above:Performed By: #### BMP #### [facility] [address] [place] [address] (RBC) [Entitic vol]87.1 fAJicmzy20.0-94.0The [facility] AndersonComment on above:Performed By: #### BMP #### [facility] [address] [place] [address] Dr. Linden Anton #0.7 103/ulNormal0.3-0.8The [facility] AndersonComment on above:Performed By: #### BMP #### [facility] [address] [place] [address] Dr. Linden Griderocytes/100 WBC (Bld)10.1 %Normal1.7-12.0The [facility] Comment on above:Performed By: #### BMP #### [facility] [address] [place] [address] Dr. Linden Benitez #4.0 103/ulNormal1.4-6.5The [facility] AndersonComment on above:Performed By: #### BMP #### [facility] [address] [place] [address] Dr. Linden Velasquezutrophils/100 WBC (Bld)59.3 %Djfwpl88.0-75.0The [facility] AndersonComment on above:Performed By: #### BMP #### [facility] [address] [place] [address] Dr. Linden Turpinlet mean volume (Bld) [Entitic vol]9.8 fLNormal9.5-13.5The [facility] AndersonComment on above:Performed By: #### BMP #### [facility] [address] [place] [address] Dr. Linden JansenPLT235 103/vxDrltch881-883Iuc [facility] AndersonComment on above: Performed By: #### BMP #### [facility] [address] [place] [address] Dr. Linden JansenRBC5.19 106/ulNormal4.70-6.10The [facility] AndersonComment on above:Performed By: #### BMP #### [facility] [address] [place] [address] Dr. Linden JansenWBC6.7 103/ulNormal4.0-11.0The [facility] AndersonComment on above: Performed By: #### BMP #### [facility] [address] [place] [address] Dr. Linden Tapia THYROXINE INDEX T7on 36-40-8983AQB7.98Nkbkmm8.30-4.50The [facility] AndersonComment on above:Performed By: #### BMP #### [facility] [address] [place] [address] Dr. Linden JansenT3U33.0 %Cezxxy96.0-40.0The [facility] AndersonComment on above: Performed By: #### BMP #### [facility] [address] [place] [address] Dr. Linden JansenT4 [Mass/Vol]8.10 ug/dLNormal4.50-12.10The [facility] Comment on above:Performed By: #### BMP #### [facility] [address] [place] [address] Dr. Linden JansenGLYCOHEMOGLOBIN A1Con 52-98-9970HDR RECOMMENDATIONSEE BELOWMercy Health Clermont HospitalComment on above:Result Comment: ADA RECOMMENDED LIMIT 4.0 - 6.0 ADA THERAPEUTIC TARGET < 7.0 ACTION SUGGESTED > 7.0Performed By: #### BMP #### [facility] [address] [address] [address] Linden JansenGlucose [Mass/Vol]105 mg/dLNoFort Hamilton HospitalComment on above:Performed By: #### BMP #### [facility] [address] [place] [address] Dr. Linden JansenHbA1c (Bld) [Mass fraction]5.3 %Normal4.5-6.2[facility] HospitalComment on above:Performed By: #### BMP #### [facility] [address] [place] [address] Dr. Linden JansenLIPID PROFILEon 20-51-7021ILBH-HDL RATIO NORMSEE [facility]Comhen[facility] on above:Result Comment: 3.3 - 4.4 LOW RISK 4.4 - 7.1 AVERAGE RISK 7.1 - 11.0 MODERATE RISK >11.0 HIGH RISKPerformed By: #### BMP #### [facility] [address] [place] [address] Dr. Linden JansenCholesterol [Mass/Vol]187 mg/dLNormal<=200The [facility] Comment on above:Performed By: #### BMP #### [facility] [address] [place] [address] Dr. Linden JansenCholesterol in HDL [Mass/Vol]34 mg/dLCritically tre26-61Hqo [facility] AndersonComment on above:Performed By: #### BMP #### [facility] [address] [place] [address] Dr. Linden JansenCholesterol in LDL [Mass/Vol]123.0 mg/dLNoFort Hamilton HospitalComment on above:Performed By: #### BMP #### [facility] [address] [place] [address] Dr. Linden JansenCholesterol.total/Cholesterol in HDL [Mass ratio]5.5 {ratio} NormalThe [facility] - AndersonComment on above:Performed By: #### BMP #### [facility] [address] [place] [address] Dr. Linden RodarteL NORMAL> or = 60 mg/dl - LOW CARDIOVASCULAR RISK <40 mg/dl - HIGH CARDIOVASCULAR RISKUK HealthcareComment on above:Performed By: #### BMP #### [facility] [address] [place] [address] Dr. Linden JansenLDL CALC NORMALSEE BELOWUK HealthcareComment on above:Result Comment: <100 mg/dl OPTIMAL 100 - 129 mg/dl NEAR OR ABOVE OPTIMAL 130 - 159 mg/dl BORDERLINE HIGH 160 - 189 mg/dl HIGH >190 mg/dl VERY HIGH Performed By: #### BMP #### [facility] [address] [place] [address] Dr. Linden JansenTriglyceride [Mass/Vol]150 mg/dLNormal<=150[facility] Comment on above:Performed By: #### BMP #### [facility] [address] [place] [address] Dr. Linden Charles CALC30.0 mg/dLNormPaulding County HospitalComment on above: Performed By: #### BMP #### [facility] [address] [place] [address] Dr. Linden JansenPROF 14(COMP METB)on 79-02-6336Grzaqdu [Mass/Vol]4.3 g/dLNormal 3.4-5.0The [facility] AndersonComment on above:Performed By: #### BMP #### [facility] [address] [place] [address] Dr. Linden JansenAlbumin/Globulin [Mass ratio]1.2 {ratio}NormalThe [facility] AndersonComment on above:Performed By: #### BMP #### [facility] [address] [place] [address] Dr. Linden MultaniP [Catalytic activity/Vol]78 U/LNmdwxe17-877The [facility] AndersonComment on above:Performed By: #### BMP #### [facility] [address] [address] [address] Linden Gardner [Catalytic activity/Vol]36 U/QKescrq23-83Dgw [facility] AndersonComment on above:Performed By: #### BMP #### [facility] [address] [address] [address] Linden Randolphon gap [Moles/Vol]9.7 mmol/LNormalThe [facility] AndersonComment on above:Performed By: #### BMP #### [facility] [address] [address] [address] Linden JansenAST [Catalytic activity/Vol]17 U/MSlowfx21-24Srg [facility] AndersonComment on above:Performed By: #### BMP #### [facility] [address] [place] [address] Dr. Linden JansenBilirubin [Mass/Vol]0.7 mg/dLNormal0.2-1.0[facility] Comment on above:Performed By: #### BMP #### [facility] [address] [place] [address] Dr. Linden JansenCalcium [Mass/Vol]9.2 mg/dLNormal8.5-10.1The [facility] Comment on above:Performed By: #### BMP #### [facility] [address] [address] [address] Linden JansenChloride [Moles/Vol]104 mmol/PEwzvhb45-181Osn [facility] Comment on above:Performed By: #### BMP #### [facility] [address] [address] [address] Linden JansenCO2 [Moles/Vol]29.2 mmol/IJmhwvx61.0-32.0The [facility] Comment on above:Performed By: #### BMP #### [facility] [address] [place] [address] Dr. Linden JansenCreatinine [Mass/Vol]1.02 mg/dLNormal0.70-1.30The Declo HospitalComment on above:Performed By: #### BMP #### [facility] [address] [address] [address] Linden CarneyGFR-AF NIGERIEN>60Normal>=60The [facility] AndersonComment on above:Performed By: #### BMP #### [facility] [address] [address] [address] Linden CarneyGFR-NON AF NIGERIEN>60Normal>=60The [facility] AndersonComment on above:Performed By: #### BMP #### [facility] [address] [address] [address] Linden JansenGlobulin (S) [Mass/Vol]3.5 g/dLNormalThe [facility] AndersonComment on above:Performed By: #### BMP #### [facility] [address] [place] [address] Dr. Linden JansenGlucose [Mass/Vol]100 mg/aABjrnrt25-119TawOhiohealth Mansfield Hospital Comment on above:Performed By: #### BMP #### [facility] [address] [address] [address] Linden JansenPotassium [Moles/Vol]3.9 mmol/LNormal3.5-5.1The [facility] Comment on above:Performed By: #### BMP #### [facility] [address] [address] [address] Linden JansenProtein [Mass/Vol]7.8 g/dLNormal6.4-8.2The [facility] Comment on above:Performed By: #### BMP #### [facility] [address] [address] [address] Linden JansenSodium [Moles/Vol]139 mmol/SXfqdqh895-026Nog [facility] Comment on above:Performed By: #### BMP #### [facility] [address] [address] [address] Linden JansenUrea nitrogen [Mass/Vol]23.0 mg/dLCritically high7.0-18.0The [facility] AndersonComment on above:Performed By: #### BMP #### [facility] [address] [place] [address] Dr. Linden JansenUrea nitrogen/Creatinine [Mass ratio]22.5 mg/mgNormalThe [facility] AndersonComment on above:Performed By: #### BMP #### [facility] [address] [place] [address] Dr. Linden JansenTSHon 84-32-1011QVY2.983 uIU/mLNormal0.358-3.740The [facility] AndersonComment on above:Performed By: #### BMP #### [facility] [address] [place] [address] Dr. Linden JansenURIC ACID SERUMon 09-05-3046Iefzj [Mass/Vol]6.1 mg/dLNormal 3.5-7.2The [facility] Hospitalment on above:Performed By: #### BMP #### [facility] [address] [place] [address] Dr. Linden JansenPatient Educationon 31-26-6160Ymbhgbi EducationUrology Benign Prostatic Hyperplasia Benign prostatic hyperplasia (BPH) is an enlarged prostate gland that is caused by the normal agingprocess and not by cancer. The prostate is [...] urine that may remain in your bladder afteryou finish urinating. ? A digital rectal exam. [...] this procedure, a tool is inserted through theopening at the tip of the penis (urethra). [...] procedure uses radio frequencies to destroy and removea small amount of prostate tissue. ? Interstitial laser coagulation (ILC). This procedure uses a laser to destroy and remove a small amount of prostate tissue. ? Transurethral electrovaporization (TUVP). This procedure uses electrodes to destroy and remove a small amount of prostate tissue. ? Prostatic urethral lift. This procedure inserts an implant to push the lobes of the prostate awayfrom the urethra. Follow these instructions at home: ? Take lmca-gdf-awseafu and prescription medicines only as told by [...] treatment. ? You d (more content not included)...[facility]/Cl[facility] Noteon [id number] Office/Clinic NoteChief Complaint 3 month follow up HPI Staff [...] denies hematuria, denies discharge, denies urinary frequency, deniesurinary hesitancy, denies nocturia, denies incontinence, denies genital [...] months 07/07/2022 EDT [facility] [address] [place] [address]- [phone] Additional Instructions: PVR Patient Education Benign Prostatic Hyperplasia I, Zuly Richmond, personally scribed for Dr. Leon on 01/07/2022 16:19:58. . Documentation recorded by the scribmaynor, Zuly Richmond, accurately reflects the services(s) I [...] Dipstick: Negative (01/07/22 15:20:0 (more content not included)...[facility] HospitalComment on above:Result Comment: Electronically Signed By: Kirill LEON MD\.br\Date and Time Signed: 01/07/22 16:23 EDT\.br\Electronically Co-Signed By: Zuly Richmond MA\.br\Date and Time Co-Signed: 01/07/22 16:20 EDTAmbulatory Visit Summaryon 10-18-2021 Ambulatory Visit Summary DELIA ARAUZ :1960 Visit Date:10/18/2021 Ambulatory Visit Instructions Your Care Team Attending Physician - Kirill LEON MD Primary Care Physician - Yudelka Mota [...] Appointments Friday 2:30 PM EDT With: Kirill LEON MD [facility]ED Note-Physicianon [id number] Note-Physician [id number]#1.00CD:127NoKettering Health Greene MemorialCULTURE URINEon [id number] URINECulture Observations: NO GROWTH.NormalOhiohealth Mansfield HospitalComment on above:Performed By: #### BMP #### [facility] [address] [place] [address] Dr. Linden Florence URINE PROFILEon [id number] Ql (U)SMALLAbnormal NEGATIVEOhiohealth Mansfield HospitalComment on above:Performed By: #### ERUR, UMICRO #### [facility] [address] [address] [address] Linden Braswell (U)CLEARNormalCLEAROhiohealth Mansfield HospitalComment on above: Performed By: #### ERUR, UMICRO #### [facility] [address] [address] [address] Linden Villar (U)BROWNAbnormalYELLOWOhiohealth Mansfield HospitalComment on above:Performed By: #### ERUR, UMICRO #### [facility] [address] [address] [address] Linden Costello micrscopic examination will be performed if indicated. NormalOhiohealth Mansfield HospitalComment on above:Performed By: #### ERUR, UMICRO #### [facility] [address] [address] [address] Linden JansenGlucose Ql (U)NegativeNormalNEGATIVEOhiohealth Mansfield HospitalComhenry [facility] on above:Performed By: #### ERUR, UMICRO #### [facility] [address] [place] [address] Dr. Linden JansenHemoglobin Ql (U)LARGEAbnormalNEGATIVEWilson Memorial Hospital on above:Performed By: #### ERUR, UMICRO #### [facility] [address] [address] [address] Linden JansenKetones Ql (U)NegativeNormalNEGATIVEOhiohealth Mansfield HospitalComment on above:Performed By: #### ERUR, UMICRO #### [facility] [address] [address] [address] Linden JansenLEUKOCYTESLARGEAbnormalNEGSelect Medical Cleveland Clinic Rehabilitation Hospital, BeachwoodComhenry [facility] on above:Performed By: #### ERUR, UMICRO #### [facility] [address] [place] [address] Dr. Linden JansenNitrite Ql (U)NegativeNormalNEGATIVEOhiohealth Mansfield HospitalComment on above:Performed By: #### ESTEFANÍA UMICRO #### [facility] [address] [address] [address] Linden JansenpH (U)6.5 [pH]Normal5-9The [facility] AndersonComment on above: Performed By: #### ESTEFANÍA UMICRO #### [facility] [address] [place] [address] Dr. Linden JansenProtein (U) [Mass/Vol]100 mg/dLAbnormalNEGATIVE/ TRACEThe Declo HospitalComment on above:Performed By: #### ESTEFANÍA UMICRO #### [facility] [address] [place] [address] Dr. Linden JansenSPEC GRAVITY1.764Xcoxkb4.005-<=1.025The [facility] AndersonComment on above:Performed By: #### ESTEFANÍA UMICRO #### [facility] [address] [place] [address] Dr. Linden Clements MICRO INDINDICATEDNoFort Hamilton HospitalComment on above: Performed By: #### ESTEFANÍA UMICRO #### [facility] [address] [place] [address] Dr. Linden Krishna Qn (U)1.0 {Prrena'U}/dLNormal0.2 - 1.0The [place] on above:Performed By: #### NORMAN JOSÉICRO #### [facility] [address] [place] [address] Dr. Linden Lal MICROSCOPIC ONLYon [id number]S SEEN The [facility] AndersonComhenry [facility] on above:Performed By: #### ESTEFANÍA UMICRO #### [facility] [address] [place] [address] Dr. Linden Arroyo identified Cx Nom (U)INDICATEDUK HealthcareComhenry [facility] on above:Performed By: #### ESTEFANÍA UMICRO #### [facility] [address] [place] [address] Dr. Linden Fisher SEENNormalNONE SEENThe Lenore HospitalComment on above:Performed By: #### ESTEFANÍA UMICRO #### [facility] [address] [place] [address] Dr. Linden Meek LM Nom (Urine sed)NONE SEENNormalNONE SEENOhiohealth Mansfield HospitalComment on above:Performed By: #### ESTEFANÍA UMICRO #### [facility] [address] [place] [address] Dr. Linden Rawlsthelial cells LM Ql (Urine sed)RARENormalNONE SEEN /RAREThe [facility] AndersonComment on above:Performed By: #### ESTEFANÍA UMICRO #### [facility] [address] [place] [address] Dr. Linden BlackUSNONE SEENNormalNONE SEENThe [facility] AndersonComment on above:Performed By: #### ESTEFANÍA UMICRO #### [facility] [address] [place] [address] Dr. Linden Marrero (U) [#/Vol]/uLAbnormal0-2The [facility] AndersonComment on above:Performed By: #### ESTEFANÍA UMICRO #### [facility] [address] [place] [address] Dr. Linden Steele5-10AbnormalNONE SEENThe [facility] AndersonComment on above: Performed By: #### ESTEFANÍA UMICRO #### [facility] [address] [place] [address] Dr. Linden Burgess AUTO DIFFon [id number] #0.1 103/ulNormal0.0-0.1The [facility] AndersonComment on above:Performed By: #### CBC #### [facility] [address] [place] [address] Dr. Linden Mjeiasphils/100 WBC (Bld)0.7 %Normal0.2-2.0The [facility] Comment on above:Performed By: #### CBC #### [facility] [address] [place] [address] Dr. Linden Crisostomo #0.1 103/ulNormal0.0-0.7The [facility] AndersonComment on above: Performed By: #### CBC #### [facility] [address] [place] [address] Dr. Linden Carneyosinophils/100 WBC (Bld)1.0 %Normal0.9-7.0[facility] Comment on above:Performed By: #### CBC #### [facility] [address] [place] [address] Dr. Linden Carneyrythrocyte distribution width (RBC) [Ratio]13.9 %Ezdyfj21.0-15.0 [facility] Mansfield HospitalComment on above:Performed By: #### CBC #### [facility] [address] [place] [address] Dr. Linden JansenHematocrit (Bld) [Volume fraction]41.9 %Critically low42.0-54.0 [facility] Mansfield HospitalComment on above:Performed By: #### CBC #### [facility] [address] [place] [address] Dr. Linden JansenHemoglobin (Bld) [Mass/Vol]14.0 g/wANmlaic44.0-18.0Ohiohealth Mansfield HospitalComment on above:Performed By: #### CBC #### [facility] [address] [place] [address] Dr. Linden Greer #0.07 10e3/ulCritically high0.00-0.03[facility] Comment on above:Performed By: #### CBC #### [facility] [address] [place] [address] Dr. Linden Greer %0.8 %Critically high0.0-0.5ThMercy Health Clermont HospitalComment on above:Performed By: #### CBC #### [facility] [address] [place] [address] Dr. Linden LeeMPH #1.0 103/ulCritically low1.2-3.8ThMercy Health Clermont Hospital Comment on above:Performed By: #### CBC #### [facility] [address] [place] [address] Dr. Linden Leemphocytes/100 WBC (Bld)10.7 %Critically low20.5-60.0The [facility] AndersonComment on above:Performed By: #### CBC #### [facility] [address] [place] [address] Dr. Linden SchwabUAL DIFF REQNONormalThe [facility] AndersonComment on above: Performed By: #### CBC #### [facility] [address] [place] [address] (RBC) [Entitic mass]28.0 sbSizvot72.9-34.0The [facility] AndersonComment on above:Performed By: #### CBC #### [facility] [address] [place] [address] (RBC) [Mass/Vol]33.4 g/gSBrfcvp14.9-35.2The [facility] AndersonComment on above:Performed By: #### CBC #### [facility] [address] [place] [address] (RBC) [Entitic vol]83.8 jSVhuqap35.0-94.0The [facility] AndersonComment on above:Performed By: #### CBC #### [facility] [address] [place] [address] Dr. Linden Anton #0.6 103/ulNormal0.3-0.8The [facility] AndersonComment on above:Performed By: #### CBC #### [facility] [address] [place] [address] Dr. Linden Griderocytes/100 WBC (Bld)7.0 %Normal1.7-12.0[facility] Comment on above:Performed By: #### CBC #### [facility] [address] [place] [address] Dr. Linden Benitez #7.1 103/ulCritically high1.4-6.5The [facility] Comment on above:Performed By: #### CBC #### [facility] [address] [address] [address] Linden Velasquezutrophils/100 WBC (Bld)79.8 %Critically high43.0-75.0The [place] on above:Performed By: #### CBC #### [facility] [address] [address] [address] Linden Turpinlet mean volume (Bld) [Entitic vol]10.0 fLNormal9.5-13.5The [facility] AndersonComment on above:Performed By: #### CBC #### [facility] [address] [address] [address] Linden JansenPLT207 103/pqEtvkmt217-601Itt [place] on above: Performed By: #### CBC #### [facility] [address] [place] [address] Dr. Linden JansenRBC5.00 106/ulNormal4.70-6.10The [facility] AndersonComment on above:Performed By: #### CBC #### [facility] [address] [place] [address] Dr. Linden JansenWBC8.9 103/ulNormal4.0-11.0The [place] on above: Performed By: #### CBC #### [facility] [address] [place] [address] Dr. Linden Renae URINEon 49-50-7033IRBZLIC URINECulture Observations: NO GROWTH.NormalThe [place] on above:Performed By: #### BMP #### [facility] [address] [place] [address] Dr. Cheatham ChangER URINE PROFILEon 74-83-8384Lmaadocnd Ql (U)NegativeNormal NEGATIVEThe [facility] AndersonComhenry [facility] on above:Performed By: #### BMP #### [facility] [address] [place] [address] Dr. Linden JansenClarity (U)CLOUDYAbnormalCLEARThe [facility] AndersonComment on above:Performed By: #### BMP #### [facility] [address] [address] [address] Linden Shearerlor (U)REDAbnormalYELLOWOhiohealth Mansfield HospitalComment on above: Performed By: #### BMP #### [facility] [address] [address] [address] Linden Costello micrscopic examination will be performed if indicated. NormalThe Declo HospitalComment on above:Performed By: #### BMP #### [facility] [address] [address] [address] Linden JansenGlucose Ql (U)NegativeNormalNEGATIVEOhiohealth Mansfield HospitalComment on above:Performed By: #### BMP #### [facility] [address] [address] [address] Linden JansenHemoglobin Ql (U)LARGEAbnormalNEGATIVEWilson Memorial Hospital on above:Performed By: #### BMP #### [facility] [address] [place] [address] Dr. Linden JanesnKetones Ql (U)NegativeNormalNEGATIVEOhiohealth Mansfield HospitalComment on above:Performed By: #### BMP #### [facility] [address] [address] [address] Linden JansenLEUKOCYTESTRACEAbnormalNEGATIVEOhiohealth Mansfield HospitalComhenry [facility] on above:Performed By: #### BMP #### [facility] [address] [address] [address] Linden JansenNitrite Ql (U)NegativeNormalNEGATIVEOhiohealth Mansfield HospitalComment on above:Performed By: #### BMP #### [facility] [address] [address] [address] Linden JansenpH (U)6.0 [pH]Normal5-9Ohio[facility] Mansfield HospitalComment on above: Performed By: #### BMP #### [facility] [address] [place] [address] Dr. Linden JansenProtein (U) [Mass/Vol]100 mg/dLAbnormalNEGATIVE/ TRACEThe Declo HospitalComment on above:Performed By: #### BMP #### [facility] [address] [address] [address] Linden JansenSPEC GRAVITY1.604Ajbufq8.005-<=1.025The [facility] AndersonComment on above:Performed By: #### BMP #### [facility] [address] [address] [address] Linden Clements MICRO INDINDICATEDNormalThe [facility] AndersonComment on above: Performed By: #### BMP #### [facility] [address] [place] [address] Dr. Linden Newbilinogen Qn (U)0.2 {Prerna'U}/dLNormal0.2 - 1.0The [facility] AndersonComment on above:Performed By: #### BMP #### [facility] [address] [place] [address] Dr. Linden JansenPROF CHEM 8 (BAS METB)on 03-58-8202Gimpq gap [Moles/Vol]14.6 mmol/LNormalThe [facility] AndersonComment on above:Performed By: #### BMP #### [facility] [address] [place] [address] Dr. Linden JansenCalcium [Mass/Vol]8.8 mg/dLNormal8.5-10.1The [facility] Comment on above:Performed By: #### BMP #### [facility] [address] [place] [address] Dr. Linden JansenChloride [Moles/Vol]105 mmol/TOclysa77-385Uqu [facility] Comment on above:Performed By: #### BMP #### [facility] [address] [place] [address] Dr. Linden JansenCO2 [Moles/Vol]23.4 mmol/SAsbmdk24.0-32.0The [facility] Comment on above:Performed By: #### BMP #### [facility] [address] [place] [address] Dr. Linden JansenCreatinine [Mass/Vol]1.02 mg/dLNormal0.70-1.30The [facility] HospitalComment on above:Performed By: #### BMP #### [facility] [address] [address] [address] Linden CarneyGFR-AF NIGERIEN>60Normal>=60The [facility] AndersonComment on above:Performed By: #### BMP #### [facility] [address] [address] [address] Linden CarneyGFR-NON AF NIGERIEN>60Normal>=60The [facility] AndersonComment on above:Performed By: #### BMP #### [facility] [address] [address] [address] Linden JansenGlucose [Mass/Vol]112 mg/dLCritically hkqt53-200Csy [place] on above:Performed By: #### BMP #### [facility] [address] [address] [address] Linden JansenPotassium [Moles/Vol]4.0 mmol/LNormal3.5-5.1The [facility] Comment on above:Performed By: #### BMP #### [facility] [address] [address] [address] Linden JansenSodium [Moles/Vol]139 mmol/PAkcjco501-611Yae [facility] Comment on above:Performed By: #### BMP #### [facility] [address] [address] [address] Linden JansenUrea nitrogen [Mass/Vol]18.0 mg/dLNormal7.0-18.0The [facility] Hospitalment on above:Performed By: #### BMP #### [facility] [address] [address] [address] Linden Lou nitrogen/Creatinine [Mass ratio]17.6 mg/mgNormalThe [facility] AndersonComment on above:Performed By: #### BMP #### [facility] [address] [address] [address] Linden JansenURINE MICROSCOPIC ONLYon [id number]G SEEN The [facility] AndersonComment on above:Performed By: #### BMP #### [facility] [address] [place] [address] Dr. Linden Arroyo identified Cx Nom (U)INDICATEDNormalThMercy Health Clermont HospitalComment on above:Performed By: #### BMP #### [facility] [address] [place] [address] Dr. Linden Fisher SEENNormalNONE SEENOhiohealth Mansfield HospitalComment on above:Performed By: #### BMP #### [facility] [address] [place] [address] Dr. Linden Meek LM Nom (Urine sed)NONE SEENNormalNONE SEENOhiohealth Mansfield HospitalComment on above:Performed By: #### BMP #### [facility] [address] [place] [address] Dr. Cheatham ChangEpithelial cells LM Ql (Urine sed)RARENormalNONE SEEN /RAREOhiohealth Mansfield HospitalComment on above:Performed By: #### BMP #### [facility] [address] [place] [address] Dr. Linden FarrellE SEENNormalNONE SEENOhiohealth Mansfield HospitalComment on above:Performed By: #### BMP #### [facility] [address] [place] [address] Dr. Linden Marrero (U) [#/Vol]/uLAbnormal0-2The [facility] AndersonComment on above:Performed By: #### BMP #### [facility] [address] [place] [address] Dr. Linden ElkinsBC2-5AbnormalNONE SEENOhiohealth Mansfield HospitalComment on above: Performed By: #### BMP #### [facility] [address] [place] [address] Dr. Linden Nelson 27-58-1602Qrowg [id number]#1.00CD:[address] [place], [place] [address]Ambulatory Visit Summaryon 09-12-9531Smydtxcnns Visit Summary DELIA ARAUZ Ricci :1960 Visit Date:10/01/2021 Ambulatory Visit Instructions Your Diagnosis BPH with urinary obstruction Nocturia Tests Performed Urnls Dip Stick Auto w/o Microscopy POC 14419 Your Care Team Attending Physician - Kirill LEON MD Primary Care Physician - Yudelka Mota [...] SCHAEFER, Kirill Beck Where[facility] HospitalPatient Educationon 38-77-0539Lfefawq EducationNutrition Calorie Counting for Weight Loss Calories are [...] sure to eat fewer calories than your bodyneeds, you should lose weight. Ask your health care provider what a healthy weight is for you. For calorie counting to work, you will need to eat the right number of calories in a day in order to lose a healthy amount of weight per week. A dietitian can help you determine how many calories youneed in a day and will give you [...] label. If a food does not have aNutrition Facts label, try to look up the calories online or ask your dietitian for help. Remember that calories are listed per serving. If you choose to have more than one serving of a food, you will have to multiply the calories per serving by the amount of servings you plan to eat. Forexample, the label on a package of bread [...] you how many calories you have left forthe day to meet your goal. What are [...] juices have a lot of calories, yet donot fill you up. ? Eat nutritious foods and avoid empty calories. Empty calories are calories you get from foods or beverages that do not have many vitamins or protein, such as candy, sweets, and soda. It is better to have a nutritious high-calorie food (such as an avocado) than a food with few nutrients (such as abag of chips). ? Know how many calories [...] serving sizes. You could (more content not included)...[facility] HospitalU[facility]/Clinic Noteon [id number] Office/Clinic NoteChief Complaint Follow up to TURP HPI Staff [...] denies hematuria, denies discharge, denies urinary frequency, deniesurinary hesitancy, mild nocturia, denies incontinence, denies genital [...] water consumption to 8 bottles of water perday. PSA was done 01/27/21 0.08. S/p TURP done 09/13/21. Pathology was reviewed today with patient showing chronic prostatitis, no cancer present. Patient is having a sensation at end of penis, should go away with time, probably fromthe catheter. Discussed retrograde ejaculation side effect with [...] and record for this patient with Dr. Leon. f/u in 3 months. Follow-up With When Contact Information EDWARD SCHAEFER, LATRICE Vasquez In 3 months [facility] [address] [place] [address]- [phone] Additional Instructions: f/u in 3 months Patient Education Calorie Counting for Weight Loss Transurethral Resection of the Prostate, Care After Peggy Arredondo, personally scribed for Dr. Leon on 10/01/2021 10:42:36. . Documentation recorded by the scribe, ricci White, accurately reflects the services(s) I performed and decisions made by me. Authenticated by Dr. Leon on 10/01/2021 10:44:59. Problem List/Past Medical History [...] Former smoker, quit m (more content not included)...[facility] HospitalComment on above:Result Comment: Electronically Signed By: EDWARD SCHAEFER, Kirill Beck\.br\Date and Time Signed: 10/01/21 10:45 EDT\.br\Electronically Co- Signed By: Peggy White\.br\Date and Time Co-Signed: 10/01/21 10:43 EDT Pathology Noteon 33-54-7590Nluilqjvx Note [id number]#1.00CD:[address] [place], [place] [address]Operative Reporton 99-84-6426Ihhqbzpcs Report [id number]#1.00CD:[address] [place], [place] [address]Provider Letteron 30-73-6291Yvmovjtn Letter September 20, 2021 DELIA ARAUZ [address] [place] [id number] JANELDELIA Ricci 1960 To Whom It May Concern, Please excuse above patient from work. Date of Illness: From: 09/20/21 To: 09/23/21 May Return to Work On:09/24/21 Restrictions: No heavy lifting over 25 pounds until 10/04/21 Comments: Patient may resume normal activity after 10/04/21 Sincerely, Kirill Leon M.D., F.A.C.S. [facility] [address] [place] [address] Date was corrected for 09/13/21 for surgery date.[facility]Amb[facility] Summaryon 64-49-4719Twsbbamcdi Visit Summary DELIA ARAUZ :1960 Visit Date:09/18/2021 Ambulatory Visit Instructions Your [...] Follow-Up Appointments Friday 9:30 AM EDT With: EDWARD SCHAEFER, Kirill Beck [facility]: [facility] HospitalAuth for Release of Medical Recordson 30-05-4094Dacd for Release of Medical [id number]#1.00CD:127 [facility] HospitalLab Reportson 21-31-9366Sqh Reports [id number]#1.00CD:127NoKettering Health Greene MemorialCovid-19 PCR (CVDTB)on 91-40-7269KMQO-CoV-2 (COVID-19) RNA HARSHAD+probe Ql (Unsp spec)Not detectedNormalNOT DETECTEDThe [facility] - AndersonComment on above: Result Comment: This test is not yet approved or cleared by the [place] FDA. When there are no FDA-approved or cleared tests available, and other criteria are met, FDA can make tests available under an emergency access mechanism called an Emergency Use Authorization (EUA). The EUA for this test is supported by the Producer Director of Health and Human Service's (HHS's) declaration [...] of clinical signs and symptoms consistent with SARS-CoV-2.Performed By: #### CVDTBH #### [facility] [address] [place] [address] Dr. Linden PalenciaG 12-Leadon 58-83-8660ZAF 12-Lead [id number]#1.00CD:127NoKettering Health Greene MemorialLab Reportson 71-99-7562Pmu Reports [id number]#1.00CD:[address] [place], [place] [address]CBC AUTO DIFFon 98-78-4930FCRL #0.1 103/ulNormal0.0-0.1Ohiohealth Mansfield HospitalComment on above:Performed By: #### BMP #### [facility] [address] [place] [address] Dr. Linden JansenBasophils/100 WBC (Bld)1.4 %Normal0.2-2.0The [facility] Comment on above:Performed By: #### BMP #### [facility] [address] [place] [address] Dr. Linden Crisostomo #0.2 103/ulNormal0.0-0.7The [facility] AndersonComment on above: Performed By: #### BMP #### [facility] [address] [place] [address] Dr. Linden Carneyosinophils/100 WBC (Bld)3.4 %Normal0.9-7.0The [facility] Comment on above:Performed By: #### BMP #### [facility] [address] [address] [address] Linden Carneyrythrocyte distribution width (RBC) [Ratio]13.5 %Zncspe10.0-15.0 The [facility] - AndersonComment on above:Performed By: #### BMP #### [facility] [address] [place] [address] Dr. Linden JansenHematocrit (Bld) [Volume fraction]44.1 %Zahmwy50.0-54.0The [facility] AndersonComment on above:Performed By: #### BMP #### [facility] [address] [place] [address] Dr. Linden JansenHemoglobin (Bld) [Mass/Vol]14.6 g/fIFzexqy74.0-18.0The [facility] AndersonComment on above:Performed By: #### BMP #### [facility] [address] [place] [address] Dr. Linden Greer #0.08 10e3/ulCritically high0.00-0.03The [facility] Comment on above:Performed By: #### BMP #### [facility] [address] [place] [address] Dr. Linden Greer %1.1 %Critically high0.0-0.5The [facility] AndersonComment on above:Performed By: #### BMP #### [facility] [address] [place] [address] Dr. Linden KumarH #1.7 103/ulNormal1.2-3.8The [facility] AndersonComment on above:Performed By: #### BMP #### [facility] [address] [place] [address] Dr. Linden Kumarhocytes/100 WBC (Bld)24.2 %Wwjurx20.5-60.0The [facility] Hospitalment on above:Performed By: #### BMP #### [facility] [address] [place] [address] Dr. Linden SchwabUAL DIFF REQNONormalThe [facility] AndersonComment on above: Performed By: #### BMP #### [facility] [address] (RBC) [Entitic mass]28.3 nyOevjxf93.9-34.0The [facility] AndersonComment on above:Performed By: #### BMP #### [facility] [address] [place] [address] (RBC) [Mass/Vol]33.1 g/uZBnabwz09.9-35.2The [facility] HospitalComment on above:Performed By: #### BMP #### [facility] [address] [place] [address] (RBC) [Entitic vol]85.6 uGHzlvnu32.0-94.0The [facility] AndersonComment on above:Performed By: #### BMP #### [facility] [address] [place] [address] Dr. Linden Anton #0.8 103/ulNormal0.3-0.8The [facility] AndersonComment on above:Performed By: #### BMP #### [facility] [address] [place] [address] Dr. Linden Griderocytes/100 WBC (Bld)11.7 %Normal1.7-12.0The [facility] Comment on above:Performed By: #### BMP #### [facility] [address] [place] [address] Dr. Linden Benitez #4.2 103/ulNormal1.4-6.5The [facility] AndersonComment on above:Performed By: #### BMP #### [facility] [address] [place] [address] Dr. Linden Velasquezutrophils/100 WBC (Bld)58.2 %Aqcmxv94.0-75.0The [facility] AndersonComment on above:Performed By: #### BMP #### [facility] [address] [place] [address] Dr. Linden Turpinlet mean volume (Bld) [Entitic vol]10.3 fLNormal9.5-13.5The [facility] AndersonComment on above:Performed By: #### BMP #### [facility] [address] [place] [address] Dr. Linden JansenPLT228 103/smQmgooq182-071Cwl [facility] - AndersonComment on above: Performed By: #### BMP #### [facility] [address] [place] [address] Dr. Linden JansenRBC5.15 106/ulNormal4.70-6.10The [facility]o HospitalComment on above:Performed By: #### BMP #### [facility] [address] [place] [address] Dr. Linden JansenWBC7.2 103/ulNormal4.0-11.0The [facility] AndersonComment on above: Performed By: #### BMP #### [facility] [address] [place] [address] Dr. Linden JansenPROF CHEM 8 (BAS METB)on 97-65-0815Nirly gap [Moles/Vol]14.5 mmol/LNormalThe [facility] AndersonComment on above:Performed By: #### BMP #### [facility] [address] [place] [address] Dr. Linden JansenCalcium [Mass/Vol]8.8 mg/dLNormal8.5-10.1[facility] Comment on above:Performed By: #### BMP #### [facility] [address] [place] [address] Dr. Linden JansenChloride [Moles/Vol]101 mmol/UUlkhyj27-831HlrOhiohealth Mansfield Hospital Comment on above:Performed By: #### BMP #### [facility] [address] [place] [address] Dr. Linden JansenCO2 [Moles/Vol]25.5 mmol/GKhzlxq27.0-32.0The [facility] Comment on above:Performed By: #### BMP #### [facility] [address] [place] [address] Dr. Linden JansenCreatinine [Mass/Vol]1.04 mg/dLNormal0.70-1.30The [facility] AndersonComment on above:Performed By: #### BMP #### [facility] [address] [address] [address] Linden CarneyGFR-AF NIGERIEN>60Normal>=60The [facility] AndersonComment on above:Performed By: #### BMP #### [facility] [address] [address] [address] Linden CarneyGFR-NON AF NIGERIEN>60Normal>=60The [facility] AndersonComment on above:Performed By: #### BMP #### [facility] [address] [address] [address] Linden JansenGlucose [Mass/Vol]93 mg/yPPlqguk35-547Duk [facility] Comment on above:Performed By: #### BMP #### [facility] [address] [place] [address] Dr. Linden JansenPotassium [Moles/Vol]4.0 mmol/LNormal3.5-5.1[facility] Comment on above:Performed By: #### BMP #### [facility] [address] [address] [address] Linden JansenSodium [Moles/Vol]137 mmol/JBkroif629-688EgfOhiohealth Mansfield Hospital Comment on above:Performed By: #### BMP #### [facility] [address] [address] [address] Linden JansenUrea nitrogen [Mass/Vol]20.0 mg/dLCritically high7.0-18.0The [facility] AndersonComment on above:Performed By: #### BMP #### [facility] [address] [address] [address] Linden Lou nitrogen/Creatinine [Mass ratio]19.2 mg/mgNormalThe [facility] AndersonComment on above:Performed By: #### BMP #### [facility] [address] [address] [address] Linden JansenPROTIMEon 72-05-1545NVI Coag (PPP) [Relative time]1.05 {INR} NormalThe [facility] AndersonComment on above:Performed By: #### PTT, PT #### [facility] [address] [place] [address] Dr. Linden Aguilar GUIDELINESSEE BELOWNormalThMercy Health Clermont HospitalComment on above:Result Comment: DESIRED INR: 2.0 - 3.0 CONDITIONS NOT LISTED BELOW 2.5 - 3.5 FOR PROSTHETIC HEART VALVE REPLACEMENT 2.5 - 3.5 RECURRENT THROMBOSIS Performed By: #### PTT, PT #### [facility] [address] [place] [address] Dr. Linden JansenPT Coag (PPP) [Time]11.3 sNormal9.0-11.6The [facility] Comment on above:Performed By: #### PTT, PT #### [facility] [address] [place] [address] Dr. Linden DoyleTon 93-78-6709jRZU Coag (Bld) [Time]32.8 hMfdikr15.3-36.2The [facility] AndersonComment on above:Performed By: #### PTT, PT #### [facility] [address] [place] [address] Dr. Linden JansenCovid-19 PCR ([facility])on 37-14-5631WBNW-CoV-2 (COVID-19) RNA HARSHAD+probe Ql (Unsp spec)Not detectedNormalNOT DETECTEDOhiohealth Mansfield Hospital Comment on above:Result Comment: This test is not yet approved or cleared by the [place] FDA. When there are no FDA-approved or cleared tests available, and other criteria are met, FDA can make tests available under an emergency access mechanism called an Emergency Use Authorization (EUA). The EUA for this test is supported by the Producer Director of Health and Human Service's (HHS's) declaration that circumstances exist to justify the emergency use of in vitro diagnostics for the detection and/or diagnosis of the virus that causes COVID- 19. This EUA will remain in effect (meaning [...] of clinical signs and symptoms consistent with SARS-CoV-2.Performed By: #### CVDTBH #### [facility] [address] [place] [address] Dr. Linden Jansen Vital Signs Date TimeVital SignValuePerforming NiijcewoqEjfzyruc07-53-9061 13:51-0400Blood Pressure LocationPaMedical Breakthroughs Fund [facility]04-10-2023 13:51-0400Diastolic blood tibywtqo19 mm[Hg]Kirill [employer] [facility]04-10-2023 13:51-0400Heart rate68 /minE.M.A.R.C. [facility]04-10-2023 13:51-0400Respiratory rate16 /minPaMedical Breakthroughs Fund [facility]04-10-2023 13:51-0400Systolic blood hbqtwfak601 mm[Hg]Kirill [employer] [facility]09-19-2022 15:18-0400Blood Pressure LocationPaMedical Breakthroughs Fund [facility]09-19-2022 15:18-0400Diastolic blood gxxncoeg26 mm[Hg]Kirill [employer] [facility]09-19-2022 15:18-0400Heart rate81 /minE.M.A.R.C. [facility]09-19-2022 15:18-0400Respiratory rate16 /minE.M.A.R.C. [facility]09-19-2022 15:18-0400Systolic blood wtuizzqc925 mm[Hg]Kirill LEON [facility]06-13-2022 09:59-0400Blood Pressure LocationPatrick [employer] [facility] 06-13-2022 09:59-0400Diastolic blood anirsges075 mm[Hg] Kirill LEON [facility] 06-13-2022 09:59-0400Heart rate87 /minPaIntention Technologyk [employer] [facility] 06-13-2022 09:59-0400Respiratory rate16 /minPatricLaunchRock [facility] 06-13-2022 09:59-0400Systolic blood ugemwxwr608 mm[Hg] Kirill LEON [facility] Encounters Encounter DateEncounter TypeCare ProviderFacilityStart: 07-29-2024 End: 06-34-0578purfkkljxnLMWDMYO MCGILLNot AvailableStart: 07-29-2024 End: 70-20-4099Cbmjkpy encounter procedureNoms Sh Aud Audiology Aid - Melisa AmberrillNOMS SH AUDComment on above:Asymmetrical sensorineural hearing loss (Primary Dx)Start: 07-15-2024 End: 51-61-8155Rnxbsij encounter procedureNoms Sh Aud Audiology Aid - Melisa DodrillNOMS SH AUDComment on above:Asymmetrical sensorineural hearing loss (Primary Dx)Start: 07-15-2024 End: 96-46-7602oyiqvmkgvrWSTSZWA MCGILLNot AvailableStart: 06-08-2024 End: 04-36-1911Grmulycam encounterBrmalu Godwin NOBLE KELLI SANDUSKYStart: 06-04-2024 End: 64-28-2038Mbxslxxg SupportDeocean beach hospitalmary Jhaveri [address] CCC-A Work Phone: noms AUDComment on above:Asymmetrical sensorineural hearing loss (Primary Dx); Tinnitus, bilateralStart: 06-04-2024 End: 49-12-4335Esudva flowsheetDetri-[facility] A [facility]-A Work Phone: noMS AUDStart: 06-04-2024 End: 40-44-1095Xxyxld [facility] hospitalheetC[facility] A [facility]-A Work Phone: noms AUDStart: 07-29-2022 End: 08-74-3644exizypynmkAjpeypc R WATERSFacility:EU tart: 07-29-2022 End: 55-84-0819Rwtuybq encounter procedureKirill LEON [facility] start: 09-26-7722Jkmwbnxqw for general adult medical examination without abnormal findingsDR YUDELKA KATHLEENYThe Declo HospitalStart: 02-09-2022 End: 27-70-1018bndyodrtviVR YUDELKA HOYFacility:Y7Bmcaq: 02-09-2022 End: 94-12-3634Bpgouvlrf for general adult medical examination without abnormal findingsDR YUDELKA MILLYFacility:W7Vgnfz: 01-07-2022 End: 84-81-5560ialibfahcfUdpriel R WATERSFacility:EU [place]Start: 01-07-2022 End: 61-39-1329Jylyvqp encounter procedureKirill LEON [facility] start: 10-18-2021 End: 54-31-2288sdraxehgiuParlfuw R WATERSFacility:EU [place]kyStart: 10-18-2021 End: 61-15-6588Zoodibw encounter procedureKirill Beck LEON [facility] Start: 10-13-2021 End: 78-69-1487qtthonrpnhJX GRACE HAYFacility:H3Obfpp: 10-12-2021 End: 40-64-3767lowgfhaitvOAAGIOE D KATKOFacility:I7Otyfo: 10-01-2021 End: 78-93-2838rvppwvdmzmGthmkub R WATERSFacility:EU [place]vueStart: 10-01-2021 End: 85-91-4694Hdajoxk encounter procedureKirill Beck LEON [facility] start: 09-18-2021 End: 42-64-4860ttelzrqesuAdkdgdh R WATERSFacility:EU [place]kyStart: 09-13-2021 Encounter for preprocedural laboratory examinationDR KIRILL Kaufman [facility] HospitalStart: 09-13-2021 End: 23-17-7282jkvxuvwtjsUU YUDELKA KATHLEENYFacility:U7Jnnmq: 09-10-2021 End: 13-92-1501pippdcztwbYY KIRILL WATERSFacility:K3Xiset: 09-10-2021 End: 43-57-5459Rqbddplpj for preprocedural laboratory examinationDR KRIILL WATERSFacility:G7Qcwpl: 93-44-9050Nbgpckuxx for preprocedural cardiovascular examinationDR KIRILL LEONAdena [facility]ayette Medical Center HospitalStart: 85-14-9267Qgmdtlhbd for preprocedural laboratory examinationDR KIRILL EDWARDAdena Fayette Medical Center HospitalStart: 08-23-2021 End: 22-44-2158ikosqxeuptRG KIRILL WATERSFacility:H8Nqrst: 08-23-2021 End: 58-98-1565Xqnvstpfp for preprocedural cardiovascular examinationDR KIRILL WATERSFacility:J0Vniaa: 04-30-2021 End: 20-52-5414vamujqkttiHU KIRILL LEONFacility:W8Csura: 04-25-2021 End: 71-94-9445yxyksztifjHH KIRILL LEONFacility:H1 Procedures DateProcedureProcedure DetailPerforming ClinicianStart: 31-76-2580PRTIQAIL FUNCTION TESTSDepelon Irwin [facility] Work Phone: start: 01-34-5042KDL screeningDR KIRILL LEONComment on above:Performed By: #### BMP #### [facility] [address] [place] [address] Dr. Linden JansenStart: 09-12-4260Nhahtoqpkruku prostatectomyPatrick LEON Start: 86-28-6051Dgzqnz of left inguinal herniaPatrick LEON Start: 02-47-1719YlmaskdhpgeWzjywqn McGill [facility] Work Phone: start: 27-84-2923KadzswpvwvaOgtldjc LEON CholecystectomyPatrick LEON HemorrhoidectomyPafrankfort regional medical centerk LEON Plan of Treatment DateCare ActivityDetailAuthorStart: 42-70-9646Ixpmtqyod for malignant neoplasm of colonNOMS HealthcareStart: 07-29-2024 End: 64-35-4871Ptzonqh encounter owrdqtmgt24/10/2025 3:30 PM EDT Office Visit N[facility] AUD [address] [facility] [place] [id number] NOMS AUDStart: 06-04-2024 End: 16-79-2528Obmtjgau Ltywyqg6706/04/2024 3:00 PM EST Clinical Support [facility] [address] [place] [id number] Nadia Irwin, [facility] [address] [place] [address] ArrivedNOSAINT JOSEPH HOSPITAL OF KIRKWOOD AUDComment on above:ArrivedStart: 06-27-2023 Pneumococcal Vaccine: 65+ Years (1 of 1 - PCV)Pneumococcal Vaccine: 65+ Years (1 of 1 - PCV)NOMS HealthcareStart: 19-76-6072Agnkgnsny for malignant neoplasm of colonINTERMOUNTAIN [facility] Healthcare Immunizations Immunization DateImmunizationNotesCare ZarqrnjzQllwdnhd40-51-8198eaabzzkpn virus vaccine, unspecified formulationPatrick LEON [facility]10-20-2021SARS-CoV-2 (COVID-19) Ad26 vaccine, recombinantPatrick LEON [facility] 10433584-83-5211pkcwinxpu virus vaccine, unspecified formulationPatrick LEON [facility]10-01-2021SARS-CoV-2 (COVID-19) mRNA BNT-162b2 vaxPatrick LEON [facility]04-11-2021SARS-CoV-2 (COVID-19) Ad26 vaccine, recombinantPatrick LEON [facility] 04141991-91-2500BDBR-BlV-0 (COVID-19) mRNA BNT-162b2 vax Kirill LEON [facility]03-11-2021SARS-CoV-2 (COVID-19) Ad26 vaccine, recombinantPatrick LEON [facility] 10476161-36-6917bcmjejmlh, unspecified formulationPatrick LEON [facility]10-14-2020influenza virus vaccine, unspecified formulationPaMedical Breakthroughs Fund [facility]10-24-2019influenza, unspecified formulationPaMedical Breakthroughs Fund [facility]10-14-2019influenza virus vaccine, unspecified formulationPaMedical Breakthroughs Fund [facility]09-21-2019influenza virus vaccine, unspecified formulationPaMedical Breakthroughs Fund [facility] HospitalNEGATED: Highlighted row has not occurred!50-95-1974adqnhxpem virus vaccine, unspecified formulationE.M.A.R.C. [facility] Payers DatePayer CategoryPayerPolicy [id number] Health Insurance [id number] [id number] 2.0.1.896034.3.579.2.593 [id number] 2.0.1.140230.3.57[id number] 2.0.1.248134.3.57[id number] 2..1.060509.3.57[id number] 2.16.840.1.683337.3.57[id number] 2.16.840.1.928898.3.57[id number] 2.16.840.1.206098.3.57[id number] 2.16.840.1.732023.3.57[id number] 2.16.840.1.901375.3.57[id number] 2.16.840.1.791830.3.57[id number] 2.16.840.1.010789.3.57[id number] 2.16.840.1.170412.3.57[id number] 2.16.840.1.344976.3.579.[id number] 2.16.840.1.800992.3.579.[id number] 2..840.1.083488.3.57[id number] 2.16.840.1.517749.3.579.[id number] 2.840.1.843972.3.579.2.1259 Social History DateTypeDetailFacilityStart: 10-01-2021 End: 10-56-7328Mrwqaro smoking statusEx-smoker (finding)[facility] comment on above:quit 2006Tobacco smoking statusNever [facility] comment on above:quit 2005Sex Assigned At BirthMale [facility] Tobacco smoking status NHISTobacco smoking consumption unknownBarnes-Jewish HospitalStart: 80-15-4205Sko assigned at birthNot on [facility] Functional Status FugoGocnjodaqpAyljbhXmatzezm25-93-8606Hfruwknqzu StatusN/AExec[facility]09-19-2022Functional StatusN/A[facility]06-13-2022Functional StatusN/A [facility] Clinical Notes 10-01-2021 to 07-29-2024 Note Date & WeztRmqrVmiphnxj50-90-7123 History of Present illness Narrative* Melisa Khalil MA - 07/29/2024 3:30 PM EDT Patient was in today for a two week follow up on hearing aids. He likes the aids but does state that it has been a real process. Patient is bothered by his own voice and volume. I changed him to a small vented dome and made adjustments in programming. Patient was pleased and felt his voice was not so harsh. I did update the firmware in the hearing aids. Cosigned by MAMI Cummings at 07/29/2024 4:59 PM EDT documented in this encounterBarnes-Jewish HospitalEkxkinltho83-21-4305 History of Present illness Narrative* Melisa Khalil MA - 07/15/2024 2:15 PM EDT Patient was in today to be fit with [employer]ia Pure C&G T 1IX hearing aids which he obtained through assistance from [employer]. Patient is a new hearing aid wearer. The aids were coupled to to 4M receiverswith small closed domes. Patient was comfortabhle with charging and maintenance. Patient was able to insert and remove the aids with no difficulty. Patient felt the aids were tood loud and they were reduced for comfort. Patient was willing to try the settings. 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 We discussed the limitations of basic aids and the importance of hearing protection. Patient indicated understanding. Patient aids could not be paired to his phone as he did not know his Apple ID. Patient was given written instructions for pairing or advised they could be paired at follow up. Patient was scheduled for a follow up in several weeks. Cosigned by MAMI Cummings at 07/16/2024 9:17 AM EDT documented in this encounterBarnes-Jewish [id number] Telephone encounter Note* Telephone Encounter - MAMI Cummings - 06/08/2024 9:40 AM EST Pt called - he decided he does not want to upgrade the hearing aids and he does not want to see for medical clearance for hearing aids (pt has slightly asymmetrical hearing loss.) Told pt I submitted the hearing test and recommendations to O on Friday. Will contact pt when I receive approval for hearing aids [facility] Work Phone: [phone] Miscellaneous Notes* Telephone Encounter - MAMI Cummings - 06/08/2024 9:40 AM EST Pt called - he decided he does not want to upgrade the hearing aids and he does not want to see for medical clearance for hearing aids (pt has slightly asymmetrical hearing loss.) Told pt I submitted the hearing test and recommendations to OD on Friday. Will contact pt when I receive approval for hearing aids * Telephone Encounter - Kena Connelly MA - 06/08/2024 9:21 AM EST Patient called in with some questions. Let patient know you were currently with patients and would get back to him when you got an opportunity. documented in this encounterBarnes-Jewish HospitalWedvquukrg62-30-0358 Telephone encounter Note* Telephone Encounter - Kena Connelly MA - 06/08/2024 9:21 AM EST Patient called in with some questions. Let patient know you were currently with patients and would get back to him when you got an opportunity. [facility] [id number] History of Present illness Narrative* MAMI Cummings - 06/04/2024 3:00 PM EST History: Pt was referred to Audiology because of hearing loss. 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 History is positive for excessive noise. Pt also reports constant tinnitus both ears. Otoscopic Exam: Ear canal clear and TM intact AU Pure Tone Audiometry Right Ear: Moderate to severe sensorineural hearing loss above 1500 Hz. Left Ear: Mild to severe sensorineural hearing loss above 1K Hz. Speech Audiometry Right SRT = 20 dB and word discrimination score at 70 dBHL (masked) = 96% Left SRT = 35 dB and word discrimination score at 75 dBHL (masked) = 92% Tympanometry Right Ear: Type A tympanogram Left Ear: Type A tympanogram Impressions: Slightly asymmetrical sensorineural hearing loss, worse in the left ear. Will ask ENT to review to determine if ENT appointment is needed. Hearing Aid Discussion: Pt is good candidate for hearing aids. He has a case with OOD. Pt is a Machining Teacher and has difficulty hearing his students. Discussed styles of hearing aids. He prefers rechargeable BISHNU style (dark champagne) and needs 2M receivers. Discussed circuitry and potental upgrades. Recommend upgrading to at least a basic because pt's work environment is noisy and basic hearing aids will not decrease the noise adequately. Pt is aware OOD will only cover a basic circuit. Pt is uncertain if he wants to upgrade. I will submit OOD recommendations. When pt is approved I will call him to determine ifhe wants to upgrade. I also willc all pt if he needs to see ENT. documented in this encounterBarnes-Jewish [id number] Hospital Discharge instructions Patient Education 07/29/2022 08:37:07 Benign Prostatic Hyperplasia Benign Prostatic Hyperplasia Benign prostatic hyperplasia (BPH) is an enlarged prostate gland that is caused by the normal agingprocess and not by cancer. The prostate is [...] urethra. Follow these instructions at home: Take bqob-zcq-ibumutw and prescription medicines only as told by [...] 04/07/2006 Document Revised: 03/02/2019 Document Reviewed: 05/12/2017 [employer] Patient Education 2020 Money Dashboard. Follow Up Care 01/07/2022 16:22:59 With:Kirill LEON MD, URL Address: [facility] [address] , [place] [address]- When: Unknown [facility] 09-19-2022 Hospital Discharge instructions Patient Education 01/07/2022 16:15:17 Benign Prostatic Hyperplasia Benign Prostatic Hyperplasia Benign prostatic hyperplasia (BPH) is an enlarged prostate gland that is caused by the normal agingprocess and not by cancer. The prostate is [...] urethra. Follow these instructions at home: Take fzdk-idw-ahwkhaa and prescription medicines only as told by [...] 04/07/2006 Document Revised: 03/02/2019 Document Reviewed: 05/12/2017 [employer] Patient Education 2020 Money Dashboard. Follow Up Care 10/01/2021 10:51:50 With:EDWARD SCHAEFER, Kirill Beck, URL Address: [facility] [address] , [place] [address]- [phone] When:07/07/2022 Comments:PVR [facility] 06-13-2022 Hospital Discharge instructions Patient Education 10/01/2021 10:33:43 Calorie Counting [...] sure to eat fewer calories than your bodyneeds, you should lose weight. Ask your health care provider what a healthy weight is for you. For calorie counting to work, you will need to eat the right number of calories in a day in order to lose a healthy amount of weight per week. A dietitian can help you determine how many calories youneed in a day and will give you suggestions on how to reach your calorie goal. A healthy amount of weight to lose per week is usually 1 2 lb (0.5 0.9 kg). This usually means thatyour daily calorie intake should be reduced by [...] label. If a food does not have aNutrition Facts label, try to look up the calories online or ask your dietitian for help. Remember that calories are listed per serving. If you choose to have more than one serving of a food, you will have to multiply the calories per serving by the amount of servings you plan to eat. Forexample, the label on a package of bread [...] you how many calories you have left forthe day to meet your goal. What are [...] fat free foods. These foods sometimes have thesame amount of calories or more calories than the full fat versions. They also often have added sugar, starch, or salt, to make up for flavor that was removed with the fat. Find a way of tracking calories that works for you. Get creative. Try different apps or programs ifwriting down calories does not work for you. What are some portion control tips? Know how many calories are in a serving. This will help you know how many servings of a certain food you can have. Use a measuring cup to measure serving sizes. You could also try weighing out portions on a kitchenscale. With time, you will be able to [...] serving size may be smaller than what youare used to eating. Check the source of the calories. Make sure the food you are eating is high in vitamins and proteinand low in saturated and trans fats. Shopping [...] steamed. Stay away from items that are buttered,battered, fried, or served with cream sauce. Items [...] a serving of cooked rice is cup orabout the size of half a baseball. Knowing serving sizes will help you be aware of how much food you are eating at restaurants. The list below tells you how big or small some common portion sizes arebased on everyday objects: ?1 oz 4 stacked [...] label. If a food does not have aNutrition Facts label, try to look up the [...] 04/07/2006 Document Revised: 12/25/2018 Document Reviewed: 03/07/2017 [employer] Patient Education 2020 Money Dashboard. 10/01/2021 10:33:36 Transurethral Resection of the Prostate, [...] Follow these instructions at home: Medicines Take twjw-ghu-ozwitih and prescription medicines only as told by your health care provider. If you were prescribed an antibiotic medicine, take it as told by your health care provider. Do notstop taking the antibiotic even if you start to feel better. Ask your health care provider if the medicine prescribed to you: ?Requires you to avoid driving or using heavy machinery. ?Can cause constipation. You may need to take actions to prevent or treat constipation, such as: ?Take csky-fcf-lzuxdyl or prescription medicines. ?Eat foods that are [...] your health care provider. This is especially importantif you are taking prescription pain medicines. Do [...] 04/07/2006 Document Revised: 07/28/2019 Document Reviewed: 01/06/2019 [employer] Patient Education 2020 Money Dashboard. Follow Up Care 09/18/2021 08:37:37 With:EDWARD SCHAEFER, LATRIEC Vasquez Address: [facility] [address], [place] [address] [phone] When:Within 3 Month(s) Comments:f/u in 3 months [facility] evaluation + Plan note Future Appointments Appointment Date:01/14/2022 02:30:00 PM Scheduled Provider:Kirill LEON MD Location:[facility] Appointment Type:URO Office Visit Diagnostic Tests Pending * PSA Total 10/01/21 [facility] evaluation + Plan note Future Appointments Appointment Date:01/14/2022 02:30:00 PM Scheduled Provider:Kirill LEON MD Location:[facility] Appointment Type:URO Office Visit [facility] Evaluation + Plan note Future Appointments Appointment Date:07/08/2022 03:00:00 PM Scheduled Provider:Kirill LEON MD Location:[facility] Appointment Type:URO Office Visit [facility] evaluation note* Diagnosis Asymmetrical sensorineural hearing loss- Primary Sensorineural hearing loss, asymmetrical Tinnitus, bilateral Unspecified tinnitus documented [facility]* Diagnosis Asymmetrical sensorineural hearing loss- Primary Sensorineural hearing loss, asymmetrical documented [facility]* Diagnosis Asymmetrical sensorineural hearing loss- Primary Sensorineural hearing loss, asymmetrical documented in this encounter [facility] Narrative No data available for this section [facility] Hospital Discharge instructions No data available for this section [facility] Insiders@ [employer] note No data available for this section [facility] reason for visit Narrative* Durable Medical Equipment (Routine) - ClosedSpecialtyDiagnoses / ProceduresReferred By ContactReferred To ContactAudiology Diagnoses Sensorineural hearing loss, bilateral Procedures NE HEARING SERVICE NE HEARING AID, DIGIT, BIN, BTE [facility] [address] [place] [address] Phone: tel: fax: [facility] [address] [place] [address] Phone: tel: fax: Referral IDStatusReasonStart DateExpiration DateVisits RequestedVisits [id number]/28/20255/ [facility] Summary Purpose Family History No Family History Records FoundNo Family History Records FoundNo Family History Records Found Advance Directives No Advanced Directives Records FoundNo Advanced Directives Records FoundNo Advanced Directives Records Found Additional Source Comments Care Team (unrecognized sect ion and content) Team MemberRelationshipSpecialtyStart DateEnd Date Yudelka Mota MD [address] [place] [address] PCP - [facility]06/08/24Team MemberRelationshipSpecialtyStart DateEnd Date Yudelka Mota MD [address] [place] [address] PCP - [facility]06/08/24Team MemberRelationshipSpecialtyStart DateEnd Date Yudelka Mota MD [address] [place] [address] PCP - [facility] Medicine06/08/24 (unrecognized sect ion and content) No Status Records FoundNo Status Records FoundNo Status Records Found INFORMATION SOURCE (unrecogn ized section and content) DATE CREATED AUTHOR 02/14/2022 [facility] DATE CREATED AUTHOR AUTHOR'S ORGANIZ ATION 08/06/[address] [facility] DATE CREATED AUTHOR AUTHOR'S ORGANIZ ATION 07/31/2024 [facility] FOR RECORDS PERTAINING TO PATIENTS WHO ARE [...] BE BASED ON THE PRIMARY CLINICAL RECORDS. [employer] [facility]. provides no warranty or guarantee of the accuracy or completeness of information in this document.
--- OUTSIDE RECORDS SUMMARY | 2025-02-26 10:38 | XMS_ITS | Patient Health Record ---
Author Organization [facility] [place] Address [address] [place] [address] Care Team Providers Care Child Nutrition Assistant Name Role Phone Lester Mota Primary Care Provider [phone] Allergies No Known Allergies Results Component Value Reference Range Notes CBC AUTO DIFF Reviewed date:03/07/2024 02:02:50 PM Interpretation: Performing Lab: Notes/Report: [facility] , White Blood Count 5.9 4.0-11.0 10 3/uL Red Blood Count5.344.70-6.10 10 6/pLCrvradoqfu57.714.0-18.0 g/uTFrnbpqufus11.3 42.0-54.0 %Mean Corpuscular Volhql09.780.0-94.0 fLMean Corpuscular Hemoglobin 29.425.9-34.0 pgMean Corpuscular HGB Conc33.929.9-35.2 g/dLRed Cell Distribution Width13.211.0-15.0 %Platelet Tfukx499979-098 10 3/uLMean Platelet Tzlixr20.29.5- 13.5 fLNeutrophils Percent Auto61.343.0-75.0 %Lymphocytes Percent Auto23.420.5- 60.0 %Monocytes Percent Auto9.81.7-12.0 %Eosinophils Percent Auto3.70.9-7.0 % Basophils Percent Auto1.00.2-2.0 %Immature Granulocytes Pct Auto0.80.0-0.5 % Neutrophils Absolute Auto3.61.4-6.5 10 3/uLLymphocytes Absolute Auto1.41.2-3.8 10 3/uLMonocytes Absolute Auto0.60.3-0.8 10 3/uLEosinophils Absolute Auto0.20.0- 0.7 10 3/uLBasophils Absolute Auto0.10.0-0.1 10 3/uLImmature Granulocytes Abs Auto0.050.00-0.03 10 3/uLPerforming Lab:see noteML - [facility] LB GLYCOHEMOGLOBIN A1C Reviewed date:03/07/2024 02:02:50 PM Interpretation: Performing Lab: Notes/Report: [facility] ,Glycohemoglobin A1C5.54.5-6.2 % ACTION SUGGESTED > 7.0 ADA THERAPEUTIC TARGET < 7.0 ADA RECOMMENDED LIMIT 4.0 - 6.0 Estimated Average Wiearch084Bmsfcmgwws Lab:[facility]University [facility] LB URIC ACID SERUM Reviewed date:03/07/2024 02:02:50 PM Interpretation: Performing Lab: Notes/Report: [facility] ,Uric Acid6.53.5-7.2 mg/dLPerforming Lab:see note - [facility] LB TSH Reviewed date:03/07/2024 02:02:50 PM Interpretation: Performing Lab: Notes/Report: [facility] ,Thyroid Stimulating Hormone0.7730.358-3.740 uIU/mLPerforming Lab:see note - [facility] LBT4 Reviewed date:03/07/2024 02:02:50 PM Interpretation: Performing Lab: Notes/Report: [facility] ,T4 Thyroxine8.404.50-12.10 ug/dLPerforming Lab:see note - [facility] LBPSA SCREENING Reviewed date:03/07/2024 02:02:50 PM Interpretation: Performing Lab: Notes/Report: [facility] ,Prostate Specific Antigen Scrn0.23<=4.00 ng/mLPerforming Lab:see noteUniversity [facility]als [facility] LBLIPID PROFILE Reviewed date:03/07/2024 02:02:50 PM Interpretation: Performing Lab: Notes/Report: [facility] ,Pitppitzoimry236<=150 mg/sHXxywcezflwf184<=200 mg/dLHDL Ltycboruchv1061-73 mg/dL > or =60 mg/dl - LOW CARDIOVASCULAR RISK <40 mg/dl - HIGH CARDIOVASCULAR RISK LDL Cholesterol Edrysmbezt538.0 130-159 mg/dl BORDERLINE HIGH 100-129 mg/dl NEAR OR ABOVE OPTIMAL >190 mg/dl VERY HIGH 160-189 mg/dl HIGH <100 mg/dl OPTIMAL VLDL HSZQQALIRQF21.6Chol HDL Ratio4.8 4.4 - 7.1 AVERAGE RISK 7.1 - 11.0 MODERATE RISK >11.0 HIGH RISK 3.3 - 4.4 LOW RISK Performing Lab:see note - [facility] LBFREE T3 Reviewed date:03/07/2024 02:02:50 PM Interpretation: Performing Lab: Notes/Report: [facility] ,Free T32.832.18-3.98 pg/mLPerforming Lab:see [facility] LB PROF 14(COMP METB) Reviewed date:03/07/2024 02:02:50 PM Interpretation: Performing Lab: Notes/Report: [facility] ,Vvsgww903618-012 mmol/LPotassium4.23.5-5.1 mmol/IJoaoxdxu99848-006 mmol/LCarbon Qpetycc81.421.0-32.0 mmol/LAnion Gap15.0Komdbqp02082-753 mg/dLBlood Urea Pbjzmbox26.07.0-18.0 mg/dLCreatinine1.240.70-1.30 mg/dLEstimated GFR ( Rebekah>60>=60 mL/min/1.73m 2Estimated GFR (Non- Ame59>=60 mL/min/1.73m 2 BUN Creatinine Ratio16.6Grphmuk3.18.5-10.1 mg/dLBilirubin Total0.80.2-1.0 mg/dL Aspartate Amino Mwvfzmqdwom9867-45 U/LAlanine Llendrwbwlorrffc8546-36 U/L Alkaline Fakdyvmsnvl1637-444 U/LTotal Protein7.26.4-8.2 g/dLAlbumin Level3.93.4- 5.0 g/dLGlobulin3.3Albumin Globulin Ratio1.2Performing Lab:see note - [facility] LB Reason For Referral No Information Medications Medication SIG (Take, Route, Frequency, Duration) Notes Start Date End Date Status amLODIPine Besylate 10 mg TAKE 1 TABLET DAILY ActiveDiclofenac Sodium 75 MG1 tablet as needed Orally Twice a day; Duration: 30 daysActiveNexIUM 40 MG1 capsule Orally Once a dayActive Immunizations Vaccine Route Administration Date Status Power nts Flu, Fluad (85628) 65 yrs and older, single-dose syringe (5337-2558) IM Intramuscular 02/23/2025 Administered Social History Tobacco Use: Social History Observation Description Date Details (start date - stop date) Former Smoker 04/21/1982 - 04/21/2005 Tobacco Use/Smoking Question Answer Notes Patient is a former smoker When did you start smoking?04/21/1982When did you stop smoking?04/21/2005 Additional Findings: Tobacco Src-NrneQy-rzdvd cigarette smoker (20-30/day) Problems Problem Type SNOMED Code ICD Code Onset Dates Problem Status W/U Status Risk Notes Problem Hypertension (30266826) Hypertension (I10 ) ActiveconfirmedProblemGastroesophageal reflux disease (899720332)GERD (gastroesophageal reflux disease) (K21.9)ActiveconfirmedProblemCarpal tunnel syndrome (59635821)Carpal tunnel syndrome (G56.00)ActiveconfirmedProblemVaricose vein (15852900)Varicose vein (I86.8)ActiveconfirmedProblemBenign prostatic hyperplasia (584396968)BPH (benign prostatic hyperplasia) (N40.0)Activeconfirmed ProblemArthralgia (64385436)Arthralgia (M25.50)ActiveconfirmedProblem Constipation (09666798)Constipation (K59.00)ActiveconfirmedProblemWell adult (638149572)Well adult (Z00.00)ActiveconfirmedProblemOverweight (356872337)Over weight (E66.3)ActiveconfirmedProblemHemorrhoid (56310416)Hemorrhoid (K64.9) ActiveconfirmedProblemInguinal hernia (056572180)Inguinal hernia (K40.90)Active confirmed Vital Signs Blood pressure diastolic 82 mm Hg 02/23/2025 Yyembw64 in02/23/2025lood pressure xhystmfv336 mm Hg02/23/20259948Mljemk910 lbs 02/23/2025BMI34.44 kg/m202/23/2025 Encounters Encounter Location Date Provider Diagnosis [facility] [address] [place] [address] 03/05/2024 Lester Hoy BPH (benign prostati c hyperplasia) N40.0 ; Hypertension I10 ; Hemorrhoid K64.9 ; GERD (gastroesophageal reflux disease) K21.9 ; Arthralgia M25.50 ; Constipation K59.00 and Encounter for screening for malignant neoplasm of prostate Z12.5 [facility] [address] [place] [address] 02/23/2025 Lester Hoy Hypertension I10 ; B PH (benign prostatic hyperplasia) N40.0 ; GERD (gastroesophageal reflux disease) K21.9 ; Constipation K59.00 and Encounter for immunization Z23 [facility] [address] [place] [address] 03/07/2024 Lester Hoy [facility] [place] [place] [address] 03/30/[address] [address]/24/2025Doug Hoy Assessments Encounter Date Diagnosis (ICD Code) Assessment Notes Treatment Notes Treatment Clinical Notes Section Notes 03/05/2024 BPH (benign prostatic hyperplasi a) (ICD-10 - N40.0) 03/05/2024Hypertension (ICD-10 - I10)02/23/2025Hypertension (ICD-10 - I10) 02/23/2025PH (benign prostatic hyperplasia) (ICD-10 - N40.0)02/23/2025GERD (gastroesophageal reflux disease) (ICD-10 - K21.9)03/05/2024Hemorrhoid (ICD-10 - K64.9)03/05/2024GERD (gastroesophageal reflux disease) (ICD-10 - K21.9) 02/23/2025onstipation (ICD-10 - K59.00)02/23/2025Encounter for immunization (ICD-10 - Z23)11/15/2024Arthralgia (ICD-10 - M25.50)4Constipation (ICD- 10 - K59.00)03/05/2024Encounter for screening for malignant neoplasm of prostate (ICD-10 - Z12.5) Plan Of Treatment Pending Test Test Name Order Date CMP (COMPLETE METABOLIC PANEL) 3 CMP (COMPLETE METABOLIC PANEL) 4 HEMOGLOBIN A1C (GLYCO) 02/23/2025 HEMOGLOBIN A1C (GLYCO) 02/10/2023 HEMOGLOBIN A1C (GLYCO) 03/05/2024 LIPID PANEL (CHOL/TRIG/HDL/LDL) 03/05/20 24 LIPID PANEL (CHOL/TRIG/HDL/LDL) 02/11/20 LIPID PANEL (CHOL/TRIG/HDL/LDL) 02/24/20 25 CBC WITH DIFF 02/10/2023 CBC WITH DIFF 03/05/2024 PSA, PROSTATE-SPECIFIC ANTIGEN 3 URIC ACID 03/05/2024 PSA, TOTAL 03/05/2024 THYROID PANEL (T4/TSH/FREE T3) 4 THYROID PANEL (T4/TSH/FREE T3) 5 THYROID PANEL (T4/TSH/FREE T3) 3 PSA, SCREENING 02/23/2025 CMP (COMP MET CHERY) w/eGFR CKD-EPI 2024 CBC WITH DIFF 02/23/2025 Insurance Providers Payer Name Payer Address Payer Phone Subscriber Number Group Number Insured Name Patient Relationship to Insured Coverage Start Date Coverage End Date [place] [address] [place] [address] [id number] [place], Terr[place]elf - patient is the insured Medical (General) History Medical History History ICD Code Over weight E66.3 BPH (benign prostatic hyperplasia) N40.0 Inguinal hernia K40.90 Varicose vein I86.8 Carpal tunnel syndrome G56.00 Hemorrhoid K64.9 Hypertension I10 Surgical History Surgery Date(Month/Year) TURP 2021 left inguinal herniorrhaphy 2020 hemorrhoidectomy cholecystectomy
--- OUTSIDE RECORDS SUMMARY | 2025-02-26 10:38 | XMS_ITS | Clinical Summary ---
Author Organization [facility] Address [address] [place] [address] Care Team Providers Care Japanese Professor Name Role Phone Keegan Mota MD Primary Care Provider [phone] Social History Tobacco UseTypesPacks/DayYears UsedDateSmoking Tobacco: Never AssessedSex and Gender InformationValueDate RecordedSex Assigned at BirthNot on fileLegal Sex Male07/03/2022 6:49 PM EDTGender IdentityNot on fileSexual OrientationNot on file Plan of Treatment Health MaintenanceDue DateLast DoneCommentsCT Zzjrjvyqcyhe87/08/1959FIT-DNA 1958FIT1958FOBT1958 8251Qubdtfvraczmn74/08/1959Pneumococcal Vaccine: 65+ Years (1 of 1 - PCV)2008COVID-19 Vaccine ( season) /01/2024, 02/07/2021, 01/19/2021, Additional history existsInfluenza Vaccine (#1)/01/2024, 02/03/2023, 02/05/2022, Additional history ubshydArncwfutrgi85Colorectal Cancer Lkgcnxhku49/30/2030 Insurance [address] [place] [address] Care Teams Team MemberRelationshipSpecialtyStart DateEnd Date Keegan Mota MD PCP - GeneralFamily Medicine06/08/24
[2025-02-26 10:50] LABS: Hematocrit 46.3 % (42.0-54.0); Hemoglobin 15.6 g/dL (14.0-18.0); Immature Granulocytes Abs Auto 0.06 10^3/uL (0.00-0.03); Immature Granulocytes Pct Auto 0.9 % (0.0-0.5); Lymphocytes Absolute Auto 1.5 10^3/uL (1.2-3.8); Mean Corpuscular HGB Conc 33.7 g/dL (29.9-35.2); Mean Corpuscular Hemoglobin 29.1 pg (25.9-34.0); Mean Corpuscular Volume 86.4 fL (80.0-94.0); Platelet Count 208 10^3/uL (150-450); Red Blood Count 5.36 10^6/uL (4.70-6.10); White Blood Count 6.5 10^3/uL (4.0-11.0)
[2025-02-26 11:27] LABS: Alanine Aminotransferase 32 U/L (16-63); Albumin Globulin Ratio 1.2; Albumin Level 4.1 g/dL (3.4-5.0); Alkaline Phosphatase 86 U/L (46-116); Anion Gap 10.6; Aspartate Amino Transferase 18 U/L (15-37); Blood Urea Nitrogen 20.0 mg/dL (7.0-18.0); Calcium 9.2 mg/dL (8.5-10.1); Carbon Dioxide 28.7 mmol/L (21.0-32.0); Chloride 105 mmol/L (98-107); Cholesterol 201 mg/dL (<=200); Estimated GFR (African America >60 (>=60 mL/min/1.73m^2); Estimated GFR (Non-African Ame 55 (>=60 mL/min/1.73m^2); Free T3 2.96 pg/mL (2.18-3.98); Globulin 3.4 g/dL; Glucose 107 mg/dL (74-106); HDL Cholesterol 34 mg/dL (40-60); Potassium 4.3 mmol/L (3.5-5.1); Sodium 140 mmol/L (136-145); Thyroid Stimulating Hormone 1.046 uIU/mL (0.358-3.740); Total Protein 7.5 g/dL (6.4-8.2); Triglycerides 172 mg/dL (<=150); VLDL CHOLESTEROL 34.4 mg/dL
== END 2025-02-26 10:34 | disposition home or self-care (01) ==
PROVIDERS: PCP Family Medicine; Visit Provider Family Medicine
DX: E78.5 Hyperlipidemia, unspecified (principal); R73.09 Other abnormal glucose; E03.9 Hypothyroidism, unspecified; I10 Essential (primary) hypertension; Z12.5 Encounter for screening for malignant neoplasm of prostate; D50.9 Iron deficiency anemia, unspecified
CPT/HCPCS: 36415; 80053; 80061; 83036; 84436; 84443; 84481; 85025; G0103